=== PATIENT | female | born 1955 | race Caucasian/White ===

== ENCOUNTER 2022-11-03 18:26 | Inpatient (IN) | payer OTHER, SELFPAY ==
--- NOTE | 2022-11-03 | ECG_ITS ---
Test Reason : PALPITATIONS Blood Pressure : / mmHG Vent. Rate : 095 BPM Atrial Rate : 095 BPM P-R Int : 204 ms QRS Dur : 076 ms QT Int : 352 ms P-R-T Axes : 048 -27 -11 degrees QTc Int : 442 ms Artifact in tracing Normal sinus rhythm Inferior infarct , age undetermined Abnormal ECG When compared with ECG of 16-APR-2011 06:01, Inferior infarct is now Present T wave inversion now evident in Inferior leads T wave inversion now evident in Lateral leads Referred By: Blanca Villatoro Electronically Signed By:CLAYTON ROMERO
[2022-11-03 18:56] LABS: Glucose, Whole Blood 284 mg/dL (60-115)
[2022-11-03] MEDS: Insulin Glargine,Hum.rec.anlog 100 UNIT/ML 10 ML VIAL 30 UNIT SUBCUT (20:41)
[2022-11-03] MEDS: Insulin Lispro 100 UNIT/ML 3 ML VIAL SUBCUT (20:42)
[2022-11-03] MEDS: Thiamine HCL 100 MG TABLET PO (20:43)
--- NOTE | 2022-11-03 21:14 | PC.NURSE ---
PT in need of routine EKG, spring up supervisor Mary notified at 0735pm.
--- NOTE | 2022-11-03 21:17 | PC.NURSE ---
PT is refusing to cooperate in admission process at this time, PT came onto unit had VS done and POC done, took HS meds then went to sleep. POC 284, T 98.0, P 100, R 18, O2 95%/RA, BP 106/58.
--- NOTE | 2022-11-04 00:23 | PC.ADMIT ---
PT arrived to unit at 1640 on CV, on stretcher with claim trainee from [facility] ED. PT is 67 year old female with medical hx of HTN, DM1, MDD, ETOH, former smoker. PT was placed on sec 12 by [employer] and brought to [facility] due to PT expression SI and HI toward , PT had consumed several glasses of wine and over the past several weeks says she has been contemplating on injecting her and self with insulin to end their lives due to fact that PT is concerned is developing 'Alzheimer's. PT has not received a formal diagnosis of this. PT has had no hospitalizations for mental health. PT curretly on CIWA due to ETOH abuse. Currently scoring 0-2. VSS, med compliant. PT went to bed and refused to sign consents. PT currently resting in bed with eyes closed on 15 minute checks.
[2022-11-04 07:15] LABS: Glucose, Whole Blood 155 mg/dL (60-115)
[2022-11-04] MEDS: Insulin Lispro 100 UNIT/ML 3 ML VIAL SUBCUT ×4 (07:45→22:14)
[2022-11-04 07:54] LABS: Glucose, Whole Blood 263 mg/dL (60-115)
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
[2022-11-04 08:17] LABS: Estimated Average Glucose 192 mg/dL; Hemoglobin A1c % 8.3 %
[2022-11-04 08:32] LABS: Alanine Aminotransferase 21 U/L (0-31); Albumin Level 3.9 g/dL (3.5-5.0); Alkaline Phosphatase 98 U/L (39-117); Anion Gap 14 (12-20); Aspartate Amino Transferase 16 U/L (5-31); Bilirubin Total 0.7 mg/dL (0.0-1.0); Blood Urea Nitrogen 31 mg/dL (9-16); Calcium 9.7 mg/dL (8.4-10.2); Carbon Dioxide 24 mmol/L (22-29); Chloride 104 mmol/L (96-108); Cholesterol 145 mg/dL; Estimated Glomerular Filt Rate 50; Glucose Fasting 284 mg/dL (60-99); HDL Cholesterol 57 mg/dL; LDL Cholesterol Calculated 63 mg/dl; Magnesium 1.9 mg/dL (1.6-2.6); Potassium 4.6 mmol/L (3.3-5.1); Sodium 137 mmol/L (135-145); Total Protein 6.4 g/dL (6.5-8.0); Triglycerides 127 mg/dL
[2022-11-04 09:00] VITALS: BP 106/70; PULSE 108; RESP 20; TEMP 36.6; O2SAT 96
[2022-11-04] MEDS: Thiamine HCL 100 MG TABLET PO (09:02)
[2022-11-04 09:03] LABS: Folate 10.7 ng/mL (> or = 4.0); Free T4 (Free Thyroxine) 1.02 ng/dL (0.71-1.85); Thyroid Stimulating Hormone 0.59 uIU/mL (0.32-4.0); Vitamin B12 < 148 pg/mL (200-900)
[2022-11-04] MEDS: Acetaminophen 325 MG TABLET 650 MG PO (12:09)
[2022-11-04 12:18] VITALS: BMI 25.7
[2022-11-04 12:37] LABS: Glucose, Whole Blood 240 mg/dL (60-115)
[2022-11-04] MEDS: hydrOXYzine HCL 25 MG TABLET PO (13:04)
--- NOTE | 2022-11-04 13:23 | PHA.MEDREC ---
Pharmacy Consult ? Medication Reconciliation Pharmacy has completed the medication reconciliation. Completed med rec per md request.
[2022-11-04 15:00] LABS: Glucose, Whole Blood 275 mg/dL (60-115)
--- NOTE | 2022-11-04 16:20 | P.CONHOSP_ITS ---
History of Present Illness Data of Consult Service Date: 11/04/22 Requesting physician: Omi Mills Primary Care Provider: Vasu Edouard III, MD HPI Reason for consult: medical H&P 67-year-old female with history of type 1 diabetes, alcohol use disorder, depression, hypothyroidism, hypertension, hyperlipidemia admitted to Psychiatry with consult placed to Medicine for medical H and P. patient reports that she has been on the unit, glucose levels have been higher than normal. She is receiving 30 units of Lantus which she takes at home and is on Humalog sliding scale. She states that she has been trying to cut back on alcohol consumption to help better manage her diabetes but drink in excess 2 days ago, unable to quantify amount. She denies any withdrawal symptoms at this time. She denies any illicit drug use and does not smoke cigarettes currently. Review of Systems Review of Systems: General: No fevers, malaise, unintentional weight loss HEENT: No sore throat, nasal congestion, rhinorrhea, sinus pain, ear pain Cardiovascular: No chest pain, palpitations, or leg edema Respiratory: No shortness of breath, wheezing, cough GI: No abdominal pain, nausea, vomiting, diarrhea, constipation, melena, hematochezia : No dysuria, hematuria, increased urinary frequency, decreased urinary output MSK: No myalgia. +back pain Neuro: No headaches, weakness, paresthesias, tremors Skin: No rashes or lesions [facility] Medical History (Updated 11/04/22 @ 16:29 by MCKENNA Devries) Alcohol use disorder Breast cancer Depressive disorder Hyperlipidemia Hypertension Hypothyroidism Uncontrolled type 1 diabetes mellitus with hyperglycemia Social History Household Members: Spouse Housing: Apartment Do you presently have visiting nurse or other home services: No Patient Tobacco Use Status: Former Tobacco user Tobacco use type: Cigarette Cigarette Packs Per Day: 0.5 Cigarettes Per Day: 10.0 Smoked in Last 30 Days: No e-Cigarette/Vaping Use: Never Used Patient Interested in Nicotine Replacement: No Patient Given Instructions on How to Stop Smoking: No (PT hasn't smoked in 30 days) Second Hand Smoke Exposure: No Use of substances other than those prescribed or required for medical reasons: No Substance Use Type: Unknown Substance Use Frequency: Chronic Longstanding Last Used Substance: Just Prior to Admission Currently Displaying Signs/Symptoms of Drug Intoxication Withdrawal: No Any prior treatment program specific to substance use: No Have you been hit, kicked, punched, or otherwise hurt by someone within the past year? If so, by whom?: No Do you feel safe in your current relationship?: Yes Is there a partner from a previous relationship who is making you feel unsafe now?: No Are you made to feel afraid or neglected: No Spiritual Healthcare Practices: none Yarsanism Healthcare Practices: none Cultural Healthcare Practices: none Advance Directives: No Advance Directives Information Provided: No Do you have thoughts of harming others: None Do you have a plan to hurt others: No Plan Recently lost weight without trying: Unsure Eating poorly because of decreased appetite: Yes Nutrition Risks: Poor intake 0-25% >4 days Patient : No : No Poor oral hygiene: No Meds Allergies Allergy/AdvReac Type Severity Reaction Status Date / Time Penicillins Allergy Unknown RASH Unverified 05/31/20 14:51 Active Medications: Current Medications Acetaminophen (Acetaminophen 325 Mg Tablet) 650 mg PO Q6H PRN PRN Reason: Headache/Pain Mild Scale (1-3) Last Admin: 11/04/22 12:09 Dose: 650 mg Al Hydroxide/Mg Hydroxide (Magnesium Hydrox/Alum Hydrox 30 Ml Oral.Susp) 30 ml PO Q6H PRN PRN Reason: Heartburn/Nausea Hydroxyzine HCl (Hydroxyzine Hcl 25 Mg Tablet) 25 mg PO Q6H PRN PRN Reason: Anxiety Last Admin: 11/04/22 13:04 Dose: 25 mg Insulin Glargine (Insulin Glargine,Hum.Rec.Anlog 100 Unit/Ml 10 Ml Vial) 30 unit SUBCUT BEDTIME NILDA Last Admin: 11/03/22 20:41 Dose: 30 unit Insulin Human Lispro (Insulin Lispro 100 Unit/Ml 3 Ml Vial) 0 unit SUBCUT QI [facility]; Protocol Last Admin: 11/04/22 12:37 Dose: 4 unit Lorazepam (Lorazepam 1 Mg Tablet) 1 mg PO Q4H PRN PRN Reason: ciwa 7-11 Lorazepam (Lorazepam 1 Mg Tablet) 2 mg PO Q4H PRN PRN Reason: ciwa 12-17 Magnesium Hydroxide (Milk Of Magnesia 30 Ml Oral.Susp) 30 ml PO DAILY PRN PRN Reason: Constipation Mirtazapine (Mirtazapine 7.5 Mg Tablet) 7.5 mg PO BEDTIME NILDA Thiamine HCl (Thiamine Hcl 100 Mg Tablet) 100 mg PO DAILY NILDA Last Admin: 11/04/22 09:02 Dose: 100 mg Trazodone HCl (Trazodone Hcl 50 Mg Tablet) 50 mg PO BEDTIME MRX1 PRN PRN Reason: Insomnia Home Medications Medication Instructions Recorded Confirmed Last Taken Type atenolol 25 mg tablet 12.5 mg PO DAILY 11/04/22 11/04/22 11/02/22 History atorvastatin 20 mg tablet (Lipitor) 20 mg PO BEDTIME 11/04/22 11/04/22 11/03/22 History cholecalciferol (vitamin D3) 25 25 mcg PO DAILY 11/04/22 11/04/22 11/02/22 History mcg (1,000 unit) tablet letrozole 2.5 mg tablet 2.5 mg PO DAILY 11/04/22 11/04/22 11/02/22 History levothyroxine 125 mcg tablet 125 mcg PO DAILY 11/04/22 11/04/22 11/02/22 History losartan 25 mg tablet 25 mg PO DAILY 11/04/22 11/04/22 11/02/22 History Physical Exam Vital Signs and Narrative: Vital Signs: Last Vital Signs Temp 97.9 F 11/04/22 09:00 Pulse 108 H 11/04/22 09:00 Resp 20 11/04/22 09:00 BP 106/70 11/04/22 09:00 Pulse Ox 96 11/04/22 09:00 O2 Del Method 11/04/22 09:00 BMI result Body Mass Index 25.7 Constitutional - Awake and Alert, No apparent distress Eyes - PERRLA, EOMI Cardiovascular - S1S2, RRR, No edema Respiratory - Normal lung expansion, Normal respiratory effort, No respiratory distress, CTA bilaterally Gastrointestinal - NT / ND; +BS; No rebound or guarding Extremities - no calf tenderness bilaterally, no swelling Musculoskeletal - Normal inspection, normal ROM Skin - Warm/Dry Neurological - Alert & oriented x3, CN II-XII in tact, 5/5 strength BUE and BLE Psychological - Appropriate affect Results Labs 11/04/22 07:58 Labs: Laboratory Results - last 24 hr 11/03/22 11/04/22 11/04/22 18:49 03:07 07:49 Anion Gap Estim Creat Clear Calc Estimated GFR POC Glucose 284 H 155 H 263 H Fasting Glucose Estimat Average Glucose Hemoglobin A1c % Calcium Magnesium Total Bilirubin AST ALT Alkaline Phosphatase Total Protein Albumin Triglycerides Cholesterol LDL Cholesterol, Calc HDL Cholesterol Vitamin B12 Folate TSH Free T4 11/04/22 11/04/22 11/04/22 07:58 07:58 12:32 Anion Gap 14 Estim Creat Clear Calc TNP Estimated GFR 50 POC Glucose 240 H Fasting Glucose 284 H Estimat Average Glucose 192 Hemoglobin A1c % 8.3 Calcium 9.7 Magnesium 1.9 Total Bilirubin 0.7 AST 16 ALT 21 Alkaline Phosphatase 98 Total Protein 6.4 L Albumin 3.9 Triglycerides 127 Cholesterol 145 LDL Cholesterol, Calc 63 HDL Cholesterol 57 Vitamin B12 < 148 L Folate 10.7 TSH 0.59 Free T4 1.02 11/04/22 14:49 Anion Gap Estim Creat Clear Calc Estimated GFR POC Glucose 275 H Fasting Glucose Estimat Average Glucose Hemoglobin A1c % Calcium Magnesium Total Bilirubin AST ALT Alkaline Phosphatase Total Protein Albumin Triglycerides Cholesterol LDL Cholesterol, Calc HDL Cholesterol Vitamin B12 Folate TSH Free T4 Assessment and Plan (1) Routine medical exam: Status: Acute Plan 67-year-old female with history of type 1 diabetes, alcohol use disorder, depression, hypothyroidism, hypertension, hyperlipidemia admitted to Psychiatry with consult placed to Medicine for medical H and P. #Depressive disorder -plan per psychiatry #Alcohol use disorder -no evidence withdrawal at this time -Continue thiamine, add folic acid -plan per Psychiatry # uncontrolled type 1 diabetes with hyperglycemia -reports last A1c was 8.3%, goal <7.0% -continue Lantus 30 units at bedtime -glucose levels uncontrolled. Humalog sliding scale increased by 2 units -continue POC -diabetic diet -Hypoglycemia protocol #HTN- reasonably controlled -continue home meds #HLD -Continue statin #Hypothyroidism -pt euthyroid -continue levothyroxine #H/o breast cancer -continue letrozole #Vitamin B12 deficiency -Initiate PO vitamin b12 Thank you for allowing me to participate in this consult. Signing off at this time. Please do not hesitate to call for further questions. Time Spent With Patient Time: Total time managing care of this patient today ____ minutes.
[2022-11-04 16:58] LABS: Glucose, Whole Blood 231 mg/dL (60-115)
[2022-11-04 18:00] VITALS: BP 119/60; PULSE 97; RESP 16; TEMP 36; O2SAT 98
[2022-11-04 21:22] LABS: Glucose, Whole Blood 222 mg/dL (60-115)
[2022-11-04] MEDS: Mirtazapine 7.5 MG TABLET PO (22:13)
[2022-11-04] MEDS: Insulin Glargine,Hum.rec.anlog 100 UNIT/ML 10 ML VIAL 30 UNIT SUBCUT (22:14)
[2022-11-05 06:00] VITALS: BP 132/74; PULSE 96; RESP 16; TEMP 37.1; O2SAT 97
[2022-11-05 07:21] LABS: Glucose, Whole Blood 161 mg/dL (60-115)
[2022-11-05] MEDS: Cyanocobalamin (Vitamin B-12) 1,000 MCG TABLET 1000 MCG PO (07:33)
[2022-11-05] MEDS: Thiamine HCL 100 MG TABLET PO (07:34)
[2022-11-05] MEDS: Insulin Lispro 100 UNIT/ML 3 ML VIAL SUBCUT ×4 (07:45→20:02)
[2022-11-05] MEDS: Folic Acid 1 MG TABLET PO (07:49)
[2022-11-05 11:29] LABS: Glucose, Whole Blood 210 mg/dL (60-115)
--- NOTE | 2022-11-05 12:22 | P.PNPSI_ITS ---
Subjective Subjective Date of Service: 11/05/22 Reason For Visit: Major Depressive Disorder, severe, recurrent Subjective Notes: Conditional Voluntary Interim History: The nursing staff reported the patient had poor sleep last night. She did not have any affect with the Remeron that we started yesterday at 7.5. The staff has noticed the patient minimized her substance abuse problem. The social services manager reported that she is on a pre-contemplative state and we will try to arrange a family meeting pretty soon. On interview the patient denies new symptoms, she minimized her alcohol is use disorder and her suicidality. We will increase Remeron up to 15 tonight. Mental Status Exam Mental Status Exam Patient Appearance: Well Grooomed and Appropriate Patient Orientation: Person and Situation Level of Consciousness: Awake and Appropriate Patient Behavior: Guarded and Passive Mood Description: Withdrawn and Constricted Affect Description: Calm Patient Cognition Impaired: No Ability to Follow Directions: Good Speech Pattern: Clear Hallucinations: None Delusions: Not Present Thought Process: Distracted and Evasive Thought Content: positive for [place] and positive for Circumstantial Judgement: Fair Diagnostics Vital Signs (24Hr): Vital Signs - 24 hr 11/04/22 18:00 11/05/22 06:00 Temperature 96.8 F 98.8 F Pulse Rate 97 96 Respiratory Rate 16 16 Blood Pressure 119/60 132/74 Pulse Oximetry 98 97 Oxygen Delivery Method Room Air Room Air BMI result Body Mass Index 25.7 Labs 11/04/22 07:58 Labs: Laboratory Results - last 48 hr 11/03/22 11/04/22 11/04/22 18:49 03:07 07:49 Sodium Potassium Chloride Carbon Dioxide Anion Gap BUN Creatinine Estim Creat Clear Calc Estimated GFR POC Glucose 284 H 155 H 263 H Fasting Glucose Estimat Average Glucose Hemoglobin A1c % Calcium Magnesium Total Bilirubin AST ALT Alkaline Phosphatase Total Protein Albumin Triglycerides Cholesterol LDL Cholesterol, Calc HDL Cholesterol Vitamin B12 Folate TSH Free T4 11/04/22 11/04/22 11/04/22 07:58 07:58 12:32 Sodium 137 Potassium 4.6 Chloride 104 Carbon Dioxide 24 Anion Gap 14 BUN 31 H Creatinine 1.10 Estim Creat Clear Calc TNP Estimated GFR 50 POC Glucose 240 H Fasting Glucose 284 H Estimat Average Glucose 192 Hemoglobin A1c % 8.3 Calcium 9.7 Magnesium 1.9 Total Bilirubin 0.7 AST 16 ALT 21 Alkaline Phosphatase 98 Total Protein 6.4 L Albumin 3.9 Triglycerides 127 Cholesterol 145 LDL Cholesterol, Calc 63 HDL Cholesterol 57 Vitamin B12 < 148 L Folate 10.7 TSH 0.59 Free T4 1.02 11/04/22 11/04/22 11/04/22 14:49 16:54 21:19 Sodium Potassium Chloride Carbon Dioxide Anion Gap BUN Creatinine Estim Creat Clear Calc Estimated GFR POC Glucose 275 H 231 H 222 H Fasting Glucose Estimat Average Glucose Hemoglobin A1c % Calcium Magnesium Total Bilirubin AST ALT Alkaline Phosphatase Total Protein Albumin Triglycerides Cholesterol LDL Cholesterol, Calc HDL Cholesterol Vitamin B12 Folate TSH Free T4 11/05/22 11/05/22 07:17 11:24 Sodium Potassium Chloride Carbon Dioxide Anion Gap BUN Creatinine Estim Creat Clear Calc Estimated GFR POC Glucose 161 H 210 H Fasting Glucose Estimat Average Glucose Hemoglobin A1c % Calcium Magnesium Total Bilirubin AST ALT Alkaline Phosphatase Total Protein Albumin Triglycerides Cholesterol LDL Cholesterol, Calc HDL Cholesterol Vitamin B12 Folate TSH Free T4 Medications Medications Current Medications Acetaminophen (Acetaminophen 325 Mg Tablet) 650 mg PO Q6H PRN PRN Reason: Headache/Pain Mild Scale (1-3) Last Admin: 11/04/22 12:09 Dose: 650 mg Al Hydroxide/Mg Hydroxide (Magnesium Hydrox/Alum Hydrox 30 Ml Oral.Susp) 30 ml PO Q6H PRN PRN Reason: Heartburn/Nausea Cyanocobalamin (Cyanocobalamin (Vitamin B-12) 1,000 Mcg Tablet) 1,000 mcg PO DAILY [facility] Last Admin: 11/05/22 07:33 Dose: 1,000 mcg Dextrose (Dextrose 50 % 25 Gm/50 Ml Syringe) 25 gm IVPUSH Q15M PRN; Protocol PRN Reason: per Hypoglycemia Standing Ord. Folic Acid (Folic Acid 1 Mg Tablet) 1 mg PO DAILY [facility] Last Admin: 11/05/22 07:49 Dose: 1 mg Glucose (Glucose Gel 15 Gm Gel..Gram.) 15 gm PO Q15M PRN; Protocol PRN Reason: per Hypoglycemia Standing Ord. Hydroxyzine HCl (Hydroxyzine Hcl 25 Mg Tablet) 25 mg PO Q6H PRN PRN Reason: Anxiety Last Admin: 11/04/22 13:04 Dose: 25 mg Insulin Glargine (Insulin Glargine,Hum.Rec.Anlog 100 Unit/Ml 10 Ml Vial) 30 unit SUBCUT BEDTIME [facility] Last Admin: 11/04/22 22:14 Dose: 30 unit Insulin Human Lispro (Insulin Lispro 100 Unit/Ml 3 Ml Vial) 0 unit SUBCUT QIDACHS [facility]; Protocol Last Admin: 11/05/22 11:34 Dose: 6 unit Lorazepam (Lorazepam 1 Mg Tablet) 1 mg PO Q4H PRN PRN Reason: ciwa 7-11 Lorazepam (Lorazepam 1 Mg Tablet) 2 mg PO Q4H PRN PRN Reason: ciwa 12-17 Magnesium Hydroxide (Milk Of Magnesia 30 Ml Oral.Susp) 30 ml PO DAILY PRN PRN Reason: Constipation Mirtazapine (Mirtazapine 15 Mg Tablet) 15 mg PO BEDTIME NILDA Thiamine HCl (Thiamine Hcl 100 Mg Tablet) 100 mg PO DAILY NILDA Last Admin: 11/05/22 07:34 Dose: 100 mg Trazodone HCl (Trazodone Hcl 50 Mg Tablet) 50 mg PO BEDTIME MRX1 PRN PRN Reason: Insomnia Allergies Allergies Allergy/AdvReac Type Severity Reaction Status Date / Time Penicillins Allergy Unknown RASH Unverified 05/31/20 14:51 Assessment & Plan Assessment & Plan (1) Routine medical exam: Status: Acute Code(s): Z00.00 - Encounter for general adult medical examination without abnormal findin gs Plan 67-year-old female with history of type 1 diabetes, alcohol use disorder, depression, hypothyroidism, hypertension, hyperlipidemia admitted to Psychiatry with consult placed to Medicine for medical H and P. #Depressive disorder -plan per psychiatry #Alcohol use disorder -no evidence withdrawal at this time -Continue thiamine, add folic acid -plan per Psychiatry # uncontrolled type 1 diabetes with hyperglycemia -reports last A1c was 8.3%, goal <7.0% -continue Lantus 30 units at bedtime -glucose levels uncontrolled. Humalog sliding scale increased by 2 units -continue POC -diabetic diet -Hypoglycemia protocol #HTN- reasonably controlled -continue home meds #HLD -Continue statin #Hypothyroidism -pt euthyroid -continue levothyroxine #H/o breast cancer -continue letrozole #Vitamin B12 deficiency -Initiate PO vitamin b12 Thank you for allowing me to participate in this consult. Signing off at this time. Please do not hesitate to call for further questions. Psychiatry 1. Gather collateral information will try to contact her daughter and arrange a family meeting. 2. Increase Remeron up to 15 mg p.o. q.h.s.. 3. Offered naltrexone for alcohol use disorder. Reason for contiued inpatient stay Substantial Risk for: inability to function, rapid decompensation and med/psych decompensation Time Spent With Patient Time: Total time managing care of this patient today __20__ minutes.
[2022-11-05 16:30] LABS: Glucose, Whole Blood 224 mg/dL (60-115)
[2022-11-05 18:00] VITALS: BP 143/73; PULSE 100; RESP 18; TEMP 36.4; O2SAT 96
[2022-11-05 20:02] LABS: Glucose, Whole Blood 226 mg/dL (60-115)
[2022-11-05] MEDS: Atorvastatin Calcium 20 MG TABLET PO (20:03)
[2022-11-05] MEDS: Mirtazapine 15 MG TABLET PO (20:03)
[2022-11-05] MEDS: Insulin Glargine,Hum.rec.anlog 100 UNIT/ML 10 ML VIAL 30 UNIT SUBCUT (20:03)
--- NOTE | 2022-11-05 23:45 | PC.NURSE ---
Patient came out of room at approximately 23:40 she felt like her blood sugar was low. I grabbed the glucometer and proceeded to take blood sugar which was 56. Gave patient gingerale, apple juice, and caleb crackers. Made MD aware, no new orders.
[2022-11-06 00:02] LABS: Glucose, Whole Blood 56 mg/dL (60-115)
[2022-11-06 00:40] LABS: Glucose, Whole Blood 174 mg/dL (60-115)
--- NOTE | 2022-11-06 00:42 | PC.NURSE ---
recheck of POC was 174. Patient asymptomatic no complaints.
[2022-11-06 06:00] VITALS: BP 119/67; PULSE 110; RESP 14; TEMP 36.2; O2SAT 96
[2022-11-06] MEDS: Levothyroxine Sodium 125 MCG TABLET PO (06:47)
--- NOTE | 2022-11-06 08:12 | P.PNPSI_ITS ---
Subjective Subjective Date of Service: 11/06/22 Reason For Visit: Major Depressive Disorder, severe, recurrent Subjective Notes: Conditional Voluntary Interim History: The nursing staff reported the patient took her medications last night, she denies active suicidal ideation and she is able to contract for safety. On interview she reported that she slpet very well the increase Remeron up to 15 mg p.o. q.h.s.. We discussed at [facility] alcohol abuse and she agreed to try Naltrexone. The community mental health social worker reported that we will have a family meeting tomorrow morning. Mental Status Exam Mental Status Exam Patient Appearance: Appropriate Patient Orientation: Person, Place and Situation Level of Consciousness: Awake and Appropriate Patient Behavior: Guarded and Passive Mood Description: Withdrawn Affect Description: Constricted Patient Cognition Impaired: Yes Ability to Follow Directions: Good Speech Pattern: Clear Hallucinations: None Delusions: Not Present Thought Process: Linear Thought Content: positive for [place] Judgement: Fair Diagnostics Vital Signs (24Hr): Vital Signs - 24 hr 11/05/22 18:00 Temperature 97.5 F Pulse Rate 100 Respiratory Rate 18 Blood Pressure 143/73 H Pulse Oximetry 96 Oxygen Delivery Method Room Air BMI result Body Mass Index 25.7 Labs 11/04/22 07:58 Labs: Laboratory Results - last 48 hr 11/04/22 11/04/22 11/04/22 07:58 07:58 12:32 Sodium 137 Potassium 4.6 Chloride 104 Carbon Dioxide 24 Anion Gap 14 BUN 31 H Creatinine 1.10 Estim Creat Clear Calc TNP Estimated GFR 50 POC Glucose 240 H Fasting Glucose 284 H Estimat Average Glucose 192 Hemoglobin A1c % 8.3 Calcium 9.7 Magnesium 1.9 Total Bilirubin 0.7 AST 16 ALT 21 Alkaline Phosphatase 98 Total Protein 6.4 L Albumin 3.9 Triglycerides 127 Cholesterol 145 LDL Cholesterol, Calc 63 HDL Cholesterol 57 Vitamin B12 < 148 L Folate 10.7 TSH 0.59 Free T4 1.02 11/04/22 11/04/22 11/04/22 14:49 16:54 21:19 Sodium Potassium Chloride Carbon Dioxide Anion Gap BUN Creatinine Estim Creat Clear Calc Estimated GFR POC Glucose 275 H 231 H 222 H Fasting Glucose Estimat Average Glucose Hemoglobin A1c % Calcium Magnesium Total Bilirubin AST ALT Alkaline Phosphatase Total Protein Albumin Triglycerides Cholesterol LDL Cholesterol, Calc HDL Cholesterol Vitamin B12 Folate TSH Free T4 11/05/22 11/05/22 11/05/22 07:17 11:24 16:24 Sodium Potassium Chloride Carbon Dioxide Anion Gap BUN Creatinine Estim Creat Clear Calc Estimated GFR POC Glucose 161 H 210 H 224 H Fasting Glucose Estimat Average Glucose Hemoglobin A1c % Calcium Magnesium Total Bilirubin AST ALT Alkaline Phosphatase Total Protein Albumin Triglycerides Cholesterol LDL Cholesterol, Calc HDL Cholesterol Vitamin B12 Folate TSH Free T4 11/05/22 11/05/22 11/06/22 19:57 23:40 00:36 Sodium Potassium Chloride Carbon Dioxide Anion Gap BUN Creatinine Estim Creat Clear Calc Estimated GFR POC Glucose 226 H 56 L* 174 H Fasting Glucose Estimat Average Glucose Hemoglobin A1c % Calcium Magnesium Total Bilirubin AST ALT Alkaline Phosphatase Total Protein Albumin Triglycerides Cholesterol LDL Cholesterol, Calc HDL Cholesterol Vitamin B12 Folate TSH Free T4 Medications Medications Current Medications Acetaminophen (Acetaminophen 325 Mg Tablet) 650 mg PO Q6H PRN PRN Reason: Headache/Pain Mild Scale (1-3) Last Admin: 11/04/22 12:09 Dose: 650 mg Al Hydroxide/Mg Hydroxide (Magnesium Hydrox/Alum Hydrox 30 Ml Oral.Susp) 30 ml PO Q6H PRN PRN Reason: Heartburn/Nausea Atenolol (Atenolol 25 Mg Tablet) 12.5 mg PO DAILY [facility]; Protocol Atorvastatin Calcium (Atorvastatin Calcium 20 Mg Tablet) 20 mg PO BEDTIME [facility] Last Admin: 11/05/22 20:03 Dose: 20 mg Cyanocobalamin (Cyanocobalamin (Vitamin B-12) 1,000 Mcg Tablet) 1,000 mcg PO DAILY [facility] Last Admin: 11/05/22 07:33 Dose: 1,000 mcg Dextrose (Dextrose 50 % 25 Gm/50 Ml Syringe) 25 gm IVPUSH Q15M PRN; Protocol PRN Reason: per Hypoglycemia Standing Ord. Folic Acid (Folic Acid 1 Mg Tablet) 1 mg PO DAILY [facility] Last Admin: 11/05/22 07:49 Dose: 1 mg Glucose (Glucose Gel 15 Gm Gel..Gram.) 15 gm PO Q15M PRN; Protocol PRN Reason: per Hypoglycemia Standing Ord. Hydroxyzine HCl (Hydroxyzine Hcl 25 Mg Tablet) 25 mg PO Q6H PRN PRN Reason: Anxiety Last Admin: 11/04/22 13:04 Dose: 25 mg Insulin Glargine (Insulin Glargine,Hum.Rec.Anlog 100 Unit/Ml 10 Ml Vial) 30 unit SUBCUT BEDTIME [facility] Last Admin: 11/05/22 20:03 Dose: 30 unit Insulin Human Lispro (Insulin Lispro 100 Unit/Ml 3 Ml Vial) 0 unit SUBCUT QIDACHS [facility]; Protocol Last Admin: 11/05/22 20:02 Dose: 6 unit Letrozole (Letrozole 2.5 Mg Tablet) 2.5 mg PO DAILY [facility] Levothyroxine Sodium (Levothyroxine Sodium 125 Mcg Tablet) 125 mcg PO DAILY @0600 [facility] Last Admin: 11/06/22 06:47 Dose: 125 mcg Lorazepam (Lorazepam 1 Mg Tablet) 1 mg PO Q4H PRN PRN Reason: ciwa 7-11 Lorazepam (Lorazepam 1 Mg Tablet) 2 mg PO Q4H PRN PRN Reason: ciwa 12-17 Losartan Potassium (Losartan Potassium 25 Mg Tablet) 25 mg PO DAILY [facility]; Protocol Magnesium Hydroxide (Milk Of Magnesia 30 Ml Oral.Susp) 30 ml PO DAILY PRN PRN Reason: Constipation Mirtazapine (Mirtazapine 15 Mg Tablet) 15 mg PO BEDTIME [facility] Last Admin: 11/05/22 20:03 Dose: 15 mg Thiamine HCl (Thiamine Hcl 100 Mg Tablet) 100 mg PO DAILY [facility] Last Admin: 11/05/22 07:34 Dose: 100 mg Trazodone HCl (Trazodone Hcl 50 Mg Tablet) 50 mg PO BEDTIME MRX1 PRN PRN Reason: Insomnia Vitamin D (Cholecalciferol (Vitamin D3) 25 Mcg Tablet) 25 mcg PO DAILY [facility] Allergies Allergies Allergy/AdvReac Type Severity Reaction Status Date / Time Penicillins Allergy Unknown RASH Unverified 05/31/20 14:51 Assessment & Plan Assessment & Plan (1) Routine medical exam: Status: Acute Code(s): Z00.00 - Encounter for general adult medical examination without abnormal findings Plan 67-year-old female with history of type 1 diabetes, alcohol use disorder, d epression, hypothyroidism, hypertension, hyperlipidemia admitted to Psychiatry with consult placed to Medicine for medical H and P. #Depressive disorder -plan per psychiatry #Alcohol use disorder -no evidence withdrawal at this time -Continue thiamine, add folic acid -plan per Psychiatry # uncontrolled type 1 diabetes with hyperglycemia -reports last A1c was 8.3%, goal <7.0% -continue Lantus 30 units at bedtime -glucose levels uncontrolled. Humalog sliding scale increased by 2 units -continue POC -diabetic diet -Hypoglycemia protocol #HTN- reasonably controlled -continue home meds #HLD -Continue statin #Hypothyroidism -pt euthyroid -continue levothyroxine #H/o breast cancer -continue letrozole #Vitamin B12 deficiency -Initiate PO vitamin b12 Thank you for allowing me to participate in this consult. Signing off at this time. Please do not hesitate to call for further questions. Psychiatry 1. Gather collateral information will try to contact her daughter and arrange a family meeting. 2. Increase Remeron up to 15 mg p.o. q.h.s.. 3. Offered naltrexone for alcohol use disorder. She is more open for her treatment. Reason for contiued inpatient stay Substantial Risk for: inability to function, rapid decompensation and med/psych decompensation Time Spent With Patient Time: Total time managing care of this patient today __20__ minutes.
[2022-11-06] MEDS: Losartan Potassium 25 MG TABLET PO (09:33)
[2022-11-06] MEDS: Thiamine HCL 100 MG TABLET PO (09:33)
[2022-11-06] MEDS: atenoloL 25 MG TABLET 12.5 MG PO (09:33)
[2022-11-06] MEDS: Cyanocobalamin (Vitamin B-12) 1,000 MCG TABLET 1000 MCG PO (09:33)
[2022-11-06] MEDS: Cholecalciferol (Vitamin D3) 25 MCG TABLET PO (09:33)
[2022-11-06] MEDS: Folic Acid 1 MG TABLET PO (09:34)
[2022-11-06 10:05] LABS: Glucose, Whole Blood 289 mg/dL (60-115)
[2022-11-06] MEDS: Insulin Lispro 100 UNIT/ML 3 ML VIAL SUBCUT ×2 (10:05→21:59)
[2022-11-06] MEDS: Letrozole 2.5 MG TABLET PO (10:07)
[2022-11-06 11:42] LABS: Glucose, Whole Blood 213 mg/dL (60-115)
[2022-11-06] MEDS: Naltrexone HCl 50 MG TABLET PO (11:51)
[2022-11-06 16:35] LABS: Glucose, Whole Blood 129 mg/dL (60-115)
[2022-11-06 18:00] VITALS: BP 156/74; PULSE 82; RESP 17; TEMP 36.2; O2SAT 97
[2022-11-06 21:51] LABS: Glucose, Whole Blood 371 mg/dL (60-115)
[2022-11-06] MEDS: Insulin Glargine,Hum.rec.anlog 100 UNIT/ML 10 ML VIAL 30 UNIT SUBCUT (22:00)
[2022-11-06] MEDS: Atorvastatin Calcium 20 MG TABLET PO (22:02)
[2022-11-06] MEDS: Mirtazapine 15 MG TABLET PO (22:02)
[2022-11-07] MEDS: Levothyroxine Sodium 125 MCG TABLET PO (06:14)
[2022-11-07 08:09] LABS: Glucose, Whole Blood 111 mg/dL (60-115)
[2022-11-07] MEDS: Losartan Potassium 25 MG TABLET PO (09:22)
[2022-11-07] MEDS: atenoloL 25 MG TABLET 12.5 MG PO (09:22)
[2022-11-07] MEDS: Folic Acid 1 MG TABLET PO (09:22)
[2022-11-07] MEDS: Naltrexone HCl 50 MG TABLET PO (09:22)
[2022-11-07] MEDS: Thiamine HCL 100 MG TABLET PO (09:22)
[2022-11-07] MEDS: Cyanocobalamin (Vitamin B-12) 1,000 MCG TABLET 1000 MCG PO (09:24)
[2022-11-07] MEDS: Cholecalciferol (Vitamin D3) 25 MCG TABLET PO (09:24)
[2022-11-07] MEDS: Letrozole 2.5 MG TABLET PO (09:24)
[2022-11-07 09:30] VITALS: BP 147/78; PULSE 95; RESP 18; TEMP 36.1; O2SAT 96
[2022-11-07 11:36] LABS: Glucose, Whole Blood 229 mg/dL (60-115)
[2022-11-07] MEDS: Insulin Lispro 100 UNIT/ML 3 ML VIAL SUBCUT ×2 (11:40→20:11)
[2022-11-07] MEDS: Acetaminophen 325 MG TABLET 650 MG PO (13:29)
--- NOTE | 2022-11-07 13:37 | HO.PSYCHPN ---
Subjective Subjective Date of Service: 11/07/22 Reason For Visit: Major Depressive Disorder, severe, recurrent Subjective Notes: Conditional Voluntary Interim History: The nursing staff reported the patient has been quiet and friendly very cooperative with peers and staff. Today she canceled her family meeting since she does not want her daughter to be involved. On interview the patient denies active suicidal or homicidal thoughts she had been thinking a lot about her alcohol use disorder, so far no side effects with naltrexone. Mental Status Exam Mental Status Exam Patient Appearance: Well Grooomed and Appropriate Patient Orientation: Person, Place, Time and Situation Level of Consciousness: Awake and Appropriate Patient Behavior: Guarded and Passive Mood Description: Withdrawn Affect Description: Constricted Patient Cognition Impaired: Yes Ability to Follow Directions: Good Speech Pattern: Clear Hallucinations: None Delusions: Not Present Thought Process: Linear Thought Content: positive for [place] Judgement: Fair Diagnostics Vital Signs (24Hr): Vital Signs - 24 hr 11/06/22 18:00 11/07/22 09:30 Temperature 97.1 F 97.0 F Pulse Rate 82 95 Respiratory Rate 17 18 Blood Pressure 156/74 H 147/78 H Pulse Oximetry 97 96 Oxygen Delivery Method Room Air Room Air BMI result Body Mass Index 25.7 Labs 11/04/22 07:58 Labs: Laboratory Results - last 48 hr 11/05/22 11/05/22 11/05/22 16:24 19:57 23:40 POC Glucose 224 H 226 H 56 L* 11/06/22 11/06/22 11/06/22 00:36 09:44 11:38 POC Glucose 174 H 289 H 213 H 11/06/22 11/06/22 11/07/22 16:26 21:43 08:03 POC Glucose 129 H 371 H* 111 11/07/22 11:31 POC Glucose 229 H Medications Medications Current Medications Acetaminophen (Acetaminophen 325 Mg Tablet) 650 mg PO Q6H PRN PRN Reason: Headache/Pain Mild Scale (1-3) Last Admin: 11/07/22 13:29 Dose: 650 mg Al Hydroxide/Mg Hydroxide (Magnesium Hydrox/Alum Hydrox 30 Ml Oral.Susp) 30 ml PO Q6H PRN PRN Reason: Heartburn/Nausea Atenolol (Atenolol 25 Mg Tablet) 12.5 mg PO DAILY [facility]; Protocol Last Admin: 11/07/22 09:22 Dose: 12.5 mg Atorvastatin Calcium (Atorvastatin Calcium 20 Mg Tablet) 20 mg PO BEDTIME [facility] Last Admin: 11/06/22 22:02 Dose: 20 mg Cyanocobalamin (Cyanocobalamin (Vitamin B-12) 1,000 Mcg Tablet) 1,000 mcg PO DAILY [facility] Last Admin: 11/07/22 09:24 Dose: 1,000 mcg Dextrose (Dextrose 50 % 25 Gm/50 Ml Syringe) 25 gm IVPUSH Q15M PRN; Protocol PRN Reason: per Hypoglycemia Standing Ord. Folic Acid (Folic Acid 1 Mg Tablet) 1 mg PO DAILY [facility] Last Admin: 11/07/22 09:22 Dose: 1 mg Glucose (Glucose Gel 15 Gm Gel..Gram.) 15 gm PO Q15M PRN; Protocol PRN Reason: per Hypoglycemia Standing Ord. Hydroxyzine HCl (Hydroxyzine Hcl 25 Mg Tablet) 25 mg PO Q6H PRN PRN Reason: Anxiety Last Admin: 11/04/22 13:04 Dose: 25 mg Insulin Glargine (Insulin Glargine,Hum.Rec.Anlog 100 Unit/Ml 10 Ml Vial) 30 unit SUBCUT BEDTIME [facility] Last Admin: 11/06/22 22:00 Dose: 30 unit Insulin Human Lispro (Insulin Lispro 100 Unit/Ml 3 Ml Vial) 0 unit SUBCUT QIDACHS [facility]; Protocol Last Admin: 11/07/22 11:40 Dose: 6 unit Letrozole (Letrozole 2.5 Mg Tablet) 2.5 mg PO DAILY [facility] Last Admin: 11/07/22 09:24 Dose: 2.5 mg Levothyroxine Sodium (Levothyroxine Sodium 125 Mcg Tablet) 125 mcg PO DAILY@0600 [facility] Last Admin: 11/07/22 06:14 Dose: 125 mcg Lorazepam (Lorazepam 1 Mg Tablet) 1 mg PO Q4H PRN PRN Reason: ciwa 7-11 Lorazepam (Lorazepam 1 Mg Tablet) 2 mg PO Q4H PRN PRN Reason: ciwa 12-17 Losartan Potassium (Losartan Potassium 25 Mg Tablet) 25 mg PO DAILY [facility]; Protocol Last Admin: 11/07/22 09:22 Dose: 25 mg Magnesium Hydroxide (Milk Of Magnesia 30 Ml Oral.Susp) 30 ml PO DAILY PRN PRN Reason: Constipation Mirtazapine (Mirtazapine 15 Mg Tablet) 15 mg PO BEDTIME [facility] Last Admin: 11/06/22 22:02 Dose: 15 mg Naltrexone HCl (Naltrexone Hcl 50 Mg Tablet) 50 mg PO DAILY [facility] Last Admin: 11/07/22 09:22 Dose: 50 mg Thiamine HCl (Thiamine Hcl 100 Mg Tablet) 100 mg PO DAILY [facility] Last Admin: 11/07/22 09:22 Dose: 100 mg Trazodone HCl (Trazodone Hcl 50 Mg Tablet) 50 mg PO BEDTIME MRX1 PRN PRN Reason: Insomnia Vitamin D (Cholecalciferol (Vitamin D3) 25 Mcg Tablet) 25 mcg PO DAILY [facility] Last Admin: 11/07/22 09:24 Dose: 25 mcg Allergies Allergies Allergy/AdvReac Type Severity Reaction Status Date / Time Penicillins Allergy Unknown RASH Unverified 05/31/20 14:51 Assessment & Plan Assessment & Plan (1) Routine medical exam: Status: Acute Code(s): Z00.00 - Encounter for general adult medical examination without abnormal findings Plan 67-year-old female with history of type 1 diabetes, alcohol use disorder, depression, hypothyroidism, hypertension, hyperlipidemia admitted to Psychiatry with consult placed to Medicine for medical H and P. #Depressive disorder -plan per psychiatry #Alcohol use disorder -no evidence withdrawal at this time -Continue thiamine, add folic acid -plan per Psychiatry # uncontrolled type 1 diabetes with hyperglycemia -reports last A1c was 8.3%, goal <7.0% -continue Lantus 30 units at bedtime -glucose levels uncontrolled. Humalog sliding scale increased by 2 units -continue POC -diabetic diet -Hypoglycemia protocol #HTN- reasonably controlled -continue home meds #HLD -Continue statin #Hypothyroidism -pt euthyroid -continue levothyroxine #H/o breast cancer -continue letrozole #Vitamin B12 deficiency -Initiate PO vitamin b12 Thank you for allowing me to participate in this consult. Signing off at this time. Please do not hesitate to call for further questions. Psychiatry 1. Gather collateral information will try to contact her daughter and arrange a family meeting. 2. Increase Remeron up to 15 mg p.o. q.h.s.. 3. Offered naltrexone for alcohol use disorder. She is more open for her treatment. Informed Consent: understands Reason for contiued inpatient stay Substantial Risk for: inability to function, rapid decompensation and med/psych decompensation Time Spent With Patient Time: Total time managing care of this patient today ____ minutes.
[2022-11-07 17:22] LABS: Glucose, Whole Blood 127 mg/dL (60-115)
[2022-11-07 18:00] VITALS: BP 157/71; PULSE 83; RESP 18; TEMP 37; O2SAT 96
[2022-11-07] MEDS: Insulin Glargine,Hum.rec.anlog 100 UNIT/ML 10 ML VIAL 30 UNIT SUBCUT (20:11)
[2022-11-07] MEDS: Atorvastatin Calcium 20 MG TABLET PO (20:11)
[2022-11-07] MEDS: Mirtazapine 15 MG TABLET PO (20:11)
[2022-11-07 21:00] LABS: Glucose, Whole Blood 438 mg/dL (60-115)
[2022-11-08 02:57] LABS: Glucose, Whole Blood 43 mg/dL (60-115)
[2022-11-08] MEDS: Levothyroxine Sodium 125 MCG TABLET PO (05:25)
--- NOTE | 2022-11-08 05:33 | PC.NURSE ---
Patients HS blood sugar was [address] Stover 12 units Lispro given per scale per MD. 0300 pt symptomatic requested blood sugar was 43 patient given gingerale and caleb crackers per patient request, refused repeat blood sugar.
[2022-11-08 06:00] VITALS: BP 168/79; PULSE 92; RESP 16; O2SAT 98
[2022-11-08 08:05] LABS: Glucose, Whole Blood 125 mg/dL (60-115)
[2022-11-08] MEDS: Thiamine HCL 100 MG TABLET PO (10:22)
[2022-11-08] MEDS: Folic Acid 1 MG TABLET PO (10:22)
[2022-11-08] MEDS: Losartan Potassium 25 MG TABLET PO (10:22)
[2022-11-08] MEDS: Cholecalciferol (Vitamin D3) 25 MCG TABLET PO (10:22)
[2022-11-08] MEDS: Cyanocobalamin (Vitamin B-12) 1,000 MCG TABLET 1000 MCG PO (10:23)
[2022-11-08] MEDS: atenoloL 25 MG TABLET 12.5 MG PO (10:23)
[2022-11-08] MEDS: Naltrexone HCl 50 MG TABLET PO (10:24)
[2022-11-08 11:37] LABS: Glucose, Whole Blood 323 mg/dL (60-115)
[2022-11-08] MEDS: Insulin Lispro 100 UNIT/ML 3 ML VIAL SUBCUT (11:48)
--- NOTE | 2022-11-08 11:49 | HO.PSYCHPN ---
Subjective Subjective Date of Service: 11/08/22 Reason For Visit: Major Depressive Disorder, severe, recurrent Interim History: found reading a book by her window. calm, cooperative. irritated she was not giving insulin for FSBS around 125 this morning, states she is waiting to speak with the hospitalist on the matter. poor sleep overnight 2/2 disruptive environment, planning to discharge thursday. per staff, angry re RN refusing to give insulin against protocol this morning. Mental Status Exam Mental Status Exam Patient Appearance: Well Grooomed and Appropriate Patient Orientation: Person, Place, Time and Situation Level of Consciousness: Awake and Appropriate Patient Behavior: Guarded and Passive Mood Description: Withdrawn Affect Description: Constricted Patient Cognition Impaired: Yes Ability to Follow Directions: Good Speech Pattern: Clear Hallucinations: None Delusions: Not Present Thought Process: Linear Thought Content: positive for Circumstantial Judgement: Fair Diagnostics Vital Signs (24Hr): Vital Signs - 24 hr 11/07/22 18:00 11/08/22 06:00 Temperature 98.6 F Pulse Rate 83 92 Respiratory Rate 18 16 Blood Pressure 157/71 H 168/79 H Pulse Oximetry 96 98 Oxygen Delivery Method Room Air Room Air BMI result Body Mass Index 25.7 Labs 11/04/22 07:58 Labs: Laboratory Results - last 48 hr 11/06/22 11/06/22 11/07/22 16:26 21:43 08:03 POC Glucose 129 H 371 H* 111 11/07/22 11/07/22 11/07/22 11:31 17:16 19:52 POC Glucose 229 H 127 H 438 H* 11/08/22 11/08/22 11/08/22 02:49 07:50 11:33 POC Glucose 43 L* 125 H 323 H Medications Medications Current Medications Acetaminophen (Acetaminophen 325 Mg Tablet) 650 mg PO Q6H PRN PRN Reason: Headache/Pain Mild Scale (1-3) Last Admin: 11/07/22 13:29 Dose: 650 mg Al Hydroxide/Mg Hydroxide (Magnesium Hydrox/Alum Hydrox 30 Ml Oral.Susp) 30 ml PO Q6H PRN PRN Reason: Heartburn/Nausea Atenolol (Atenolol 25 Mg Tablet) 12.5 mg PO DAILY [facility]; Protocol Last Admin: 11/08/22 10:23 Dose: 12.5 mg Atorvastatin Calcium (Atorvastatin Calcium 20 Mg Tablet) 20 mg PO BEDTIME [facility] Last Admin: 11/07/22 20:11 Dose: 20 mg Cyanocobalamin (Cyanocobalamin (Vitamin B-12) 1,000 Mcg Tablet) 1,000 mcg PO DAILY [facility] Last Admin: 11/08/22 10:23 Dose: 1,000 mcg Dextrose (Dextrose 50 % 25 Gm/50 Ml Syringe) 25 gm IVPUSH Q15M PRN; Protocol PRN Reason: per Hypoglycemia Standing Ord. Folic Acid (Folic Acid 1 Mg Tablet) 1 mg PO DAILY [facility] Last Admin: 11/08/22 10:22 Dose: 1 mg Glucose (Glucose Gel 15 Gm Gel..Gram.) 15 gm PO Q15M PRN; Protocol PRN Reason: per Hypoglycemia Standing Ord. Hydroxyzine HCl (Hydroxyzine Hcl 25 Mg Tablet) 25 mg PO Q6H PRN PRN Reason: Anxiety Last Admin: 11/04/22 13:04 Dose: 25 mg Insulin Glargine (Insulin Glargine,Hum.Rec.Anlog 100 Unit/Ml 10 Ml Vial) 30 unit SUBCUT BEDTIME [facility] Last Admin: 11/07/22 20:11 Dose: 30 unit Insulin Human Lispro (Insulin Lispro 100 Unit/Ml 3 Ml Vial) 0 unit SUBCUT QIDACHS [facility]; Protocol Last Admin: 11/08/22 11:48 Dose: 8 unit Letrozole (Letrozole 2.5 Mg Tablet) 2.5 mg PO DAILY [facility] Last Admin: 11/08/22 10:24 Dose: Not Given Levothyroxine Sodium (Levothyroxine Sodium 125 Mcg Tablet) 125 mcg PO DAILY@0600 [facility] Last Admin: 11/08/22 05:25 Dose: 125 mcg Lorazepam (Lorazepam 1 Mg Tablet) 1 mg PO Q4H PRN PRN Reason: ciwa 7-11 Lorazepam (Lorazepam 1 Mg Tablet) 2 mg PO Q4H PRN PRN Reason: ciwa 12-17 Losartan Potassium (Losartan Potassium 25 Mg Tablet) 25 mg PO DAILY [facility]; Protocol Last Admin: 11/08/22 10:22 Dose: 25 mg Magnesium Hydroxide (Milk Of Magnesia 30 Ml Oral.Susp) 30 ml PO DAILY PRN PRN Reason: Constipation Mirtazapine (Mirtazapine 15 Mg Tablet) 15 mg PO BEDTIME [facility] Last Admin: 11/07/22 20:11 Dose: 15 mg Naltrexone HCl (Naltrexone Hcl 50 Mg Tablet) 50 mg PO DAILY [facility] Last Admin: 11/08/22 10:24 Dose: 50 mg Thiamine HCl (Thiamine Hcl 100 Mg Tablet) 100 mg PO DAILY [facility] Last Admin: 11/08/22 10:22 Dose: 100 mg Trazodone HCl (Trazodone Hcl 50 Mg Tablet) 50 mg PO BEDTIME MRX1 PRN PRN Reason: Insomnia Vitamin D (Cholecalciferol (Vitamin D3) 25 Mcg Tablet) 25 mcg PO DAILY [facility] Last Admin: 11/08/22 10:22 Dose: 25 mcg Allergies Allergies Allergy/AdvReac Type Severity Reaction Status Date / Time Penicillins Allergy Unknown RASH Unverified 05/31/20 14:51 Assessment & Plan Assessment & Plan (1) Routine medical exam: Status: Acute Code(s): Z00.00 - Encounter for general adult medical examination without abnormal findings (2) Depressive disorder: Status: Acute Code(s): F32.A - Depression, unspecified (3) Alcohol use disorder: Status: Acute Code(s): F10.90 - Alcohol use, unspecified, uncomplicated Plan 67-year-old female with history of type 1 diabetes, alcohol use disorder, depression, hypothyroidism, hypertension, hyperlipidemia admitted to Psychiatry with consult placed to Medicine for medical H and P. #Depressive disorder -plan per psychiatry #Alcohol use disorder -no evidence withdrawal at this time -Continue thiamine, add folic acid -plan per Psychiatry # uncontrolled type 1 diabetes with hyperglycemia -reports last A1c was 8.3%, goal <7.0% -continue Lantus 30 units at bedtime -glucose levels uncontrolled. Humalog sliding scale increased by 2 units -continue POC -diabetic diet -Hypoglycemia protocol #HTN- reasonably controlled -continue home meds #HLD -Continue statin #Hypothyroidism -pt euthyroid -continue levothyroxine #H/o breast cancer -continue letrozole #Vitamin B12 deficiency -Initiate PO vitamin b12 Thank you for allowing me to participate in this consult. Signing off at this time. Please do not hesitate to call for further questions. Psychiatry 1. Gather collateral information will try to contact her daughter and arrange a family meeting. 2. Increase Remeron up to 15 mg p.o. q.h.s.. 3. Offered naltrexone for alcohol use disorder. She is more open for her treatment. 11/08: no change in mgmt. Reason for contiued inpatient stay Substantial Risk for: inability to function and rapid decompensation Time Spent With Patient Time: Total time managing care of this patient today _15___ minutes.
[2022-11-08 16:40] LABS: Glucose, Whole Blood 143 mg/dL (60-115)
[2022-11-08 18:40] VITALS: BP 143/65; PULSE 76; RESP 16; TEMP 36.3; O2SAT 100
[2022-11-08] MEDS: Atorvastatin Calcium 20 MG TABLET PO (20:19)
[2022-11-08] MEDS: Mirtazapine 15 MG TABLET PO (20:19)
[2022-11-08] MEDS: Insulin Glargine,Hum.rec.anlog 100 UNIT/ML 10 ML VIAL 30 UNIT SUBCUT (20:23)
[2022-11-08 20:33] LABS: Glucose, Whole Blood 282 mg/dL (60-115)
[2022-11-08 21:00] VITALS: BP 140/78; PULSE 78; RESP 16; TEMP 36.5; O2SAT 98
[2022-11-09] MEDS: Levothyroxine Sodium 125 MCG TABLET PO (06:22)
[2022-11-09 07:43] LABS: Glucose, Whole Blood 98 mg/dL (60-115)
[2022-11-09 08:15] VITALS: BP 168/77; PULSE 92; RESP 16; TEMP 36.3; O2SAT 98
[2022-11-09] MEDS: Thiamine HCL 100 MG TABLET PO (08:19)
[2022-11-09] MEDS: Folic Acid 1 MG TABLET PO (08:20)
[2022-11-09] MEDS: Cholecalciferol (Vitamin D3) 25 MCG TABLET PO (08:20)
[2022-11-09] MEDS: atenoloL 25 MG TABLET 12.5 MG PO (08:20)
[2022-11-09] MEDS: Losartan Potassium 25 MG TABLET PO (08:21)
[2022-11-09] MEDS: Cyanocobalamin (Vitamin B-12) 1,000 MCG TABLET 1000 MCG PO (08:21)
[2022-11-09] MEDS: Naltrexone HCl 50 MG TABLET PO (08:21)
[2022-11-09] MEDS: Letrozole 2.5 MG TABLET PO (08:22)
[2022-11-09 11:25] LABS: Glucose, Whole Blood 297 mg/dL (60-115)
[2022-11-09] MEDS: Insulin Lispro 100 UNIT/ML 3 ML VIAL SUBCUT (11:28)
--- NOTE | 2022-11-09 12:14 | P.PNPSI_ITS ---
Subjective Subjective Date of Service: 11/09/22 Reason For Visit: Major Depressive Disorder, severe, recurrent Interim History: states she is doing fine, will DC tomorrow, no questions or concerns. per staff, irritable re insulin mgmt protocol here. Mental Status Exam Mental Status Exam Patient Appearance: Well Grooomed and Appropriate Patient Orientation: Person, Place, Time and Situation Level of Consciousness: Awake and Appropriate Patient Behavior: Guarded and Passive Mood Description: Withdrawn Affect Description: Constricted Patient Cognition Impaired: Yes Ability to Follow Directions: Good Speech Pattern: Clear Hallucinations: None Delusions: Not Present Thought Process: Linear Thought Content: positive for Circumstantial Judgement: Fair Diagnostics Vital Signs (24Hr): Vital Signs - 24 hr 11/08/22 18:40 11/08/22 21:00 11/09/22 08:15 Temperature 97.4 F 97.7 F 97.4 F Pulse Rate 76 78 92 Respiratory Rate 16 16 16 Blood Pressure 143/65 H 140/78 H 168/77 H Pulse Oximetry 100 98 98 Oxygen Delivery Method Room Air Room Air Room Air BMI result Body Mass Index 25.7 Labs 11/04/22 07:58 Labs: Laboratory Results - last 48 hr 11/07/22 11/07/22 11/08/22 17:16 19:52 02:49 POC Glucose 127 H 438 H* 43 L* 11/08/22 11/08/22 11/08/22 07:50 11:33 16:30 POC Glucose 125 H 323 H 143 H 11/08/22 11/09/22 11/09/22 20:17 07:39 11:19 POC Glucose 282 H 98 297 H Medications Medications Current Medications Acetaminophen (Acetaminophen 325 Mg Tablet) 650 mg PO Q6H PRN PRN Reason: Headache/Pain Mild Scale (1-3) Last Admin: 11/07/22 13:29 Dose: 650 mg Al Hydroxide/Mg Hydroxide (Magnesium Hydrox/Alum Hydrox 30 Ml Oral.Susp) 30 ml PO Q6H PRN PRN Reason: Heartburn/Nausea Atenolol (Atenolol 25 Mg Tablet) 12.5 mg PO DAILY NILDA; Protocol Last Admin: 11/09/22 08:20 Dose: 12.5 mg Atorvastatin Calcium (Atorvastatin Calcium 20 Mg Tablet) 20 mg PO BEDTIME [facility] Last Admin: 11/08/22 20:19 Dose: 20 mg Cyanocobalamin (Cyanocobalamin (Vitamin B-12) 1,000 Mcg Tablet) 1,000 mcg PO DAILY [facility] Last Admin: 11/09/22 08:21 Dose: 1,000 mcg Dextrose (Dextrose 50 % 25 Gm/50 Ml Syringe) 25 gm IVPUSH Q15M PRN; Protocol PRN Reason: per Hypoglycemia Standing Ord. Folic Acid (Folic Acid 1 Mg Tablet) 1 mg PO DAILY [facility] Last Admin: 11/09/22 08:20 Dose: 1 mg Glucose (Glucose Gel 15 Gm Gel..Gram.) 15 gm PO Q15M PRN; Protocol PRN Reason: per Hypoglycemia Standing Ord. Hydroxyzine HCl (Hydroxyzine Hcl 25 Mg Tablet) 25 mg PO Q6H PRN PRN Reason: Anxiety Last Admin: 11/04/22 13:04 Dose: 25 mg Insulin Glargine (Insulin Glargine,Hum.Rec.Anlog 100 Unit/Ml 10 Ml Vial) 30 unit SUBCUT BEDTIME [facility] Last Admin: 11/08/22 20:23 Dose: 30 unit Insulin Human Lispro (Insulin Lispro 100 Unit/Ml 3 Ml Vial) 0 unit SUBCUT QIDACHS [facility]; Protocol Last Admin: 11/09/22 11:28 Dose: 8 unit Letrozole (Letrozole 2.5 Mg Tablet) 2.5 mg PO DAILY [facility] Last Admin: 11/09/22 08:22 Dose: 2.5 mg Levothyroxine Sodium (Levothyroxine Sodium 125 Mcg Tablet) 125 mcg PO DAILY@0600 [facility] Last Admin: 11/09/22 06:22 Dose: 125 mcg Losartan Potassium (Losartan Potassium 25 Mg Tablet) 25 mg PO DAILY [facility]; Protocol Last Admin: 11/09/22 08:21 Dose: 25 mg Magnesium Hydroxide (Milk Of Magnesia 30 Ml Oral.Susp) 30 ml PO DAILY PRN PRN Reason: Constipation Mirtazapine (Mirtazapine 15 Mg Tablet) 15 mg PO BEDTIME [facility] Last Admin: 11/08/22 20:19 Dose: 15 mg Naltrexone HCl (Naltrexone Hcl 50 Mg Tablet) 50 mg PO DAILY [facility] Last Admin: 11/09/22 08:21 Dose: 50 mg Thiamine HCl (Thiamine Hcl 100 Mg Tablet) 100 mg PO DAILY [facility] Last Admin: 11/09/22 08:19 Dose: 100 mg Trazodone HCl (Trazodone Hcl 50 Mg Tablet) 50 mg PO BEDTIME MRX1 PRN PRN Reason: Insomnia Vitamin D (Cholecalciferol (Vitamin D3) 25 Mcg Tablet) 25 mcg PO DAILY [facility] Last Admin: 11/09/22 08:20 Dose: 25 mcg Allergies Allergies Allergy/AdvReac Type Severity Reaction Status Date / Time Penicillins Allergy Unknown RASH Unverified 05/31/20 14:51 Assessment & Plan Assessment & Plan (1) Routine medical exam: Status: Acute Code(s): Z00.00 - Encounter for general adult medical examination without abnormal findings (2) Depressive disorder: Status: Acute Code(s): F32.A - Depression, unspecified (3) Alcohol use disorder: Status: Acute Code(s): F10.90 - Alcohol use, unspecified, uncomplicated Plan 67-year-old female with history of type 1 diabetes, alcohol use disorder, depression, hypothyroidism, hypertension, hyperlipidemia admitted to Psychiatry with consult placed to Medicine for medical H and P. #Depressive disorder -plan per psychiatry #Alcohol use disorder -no evidence withdrawal at this time -Continue thiamine, add folic acid -plan per Psychiatry # uncontrolled type 1 diabetes with hyperglycemia -reports last A1c was 8.3%, goal <7.0% -continue Lantus 30 units at bedtime -glucose levels uncontrolled. Humalog sliding scale increased by 2 units -continue POC -diabetic diet -Hypoglycemia protocol #HTN- reasonably controlled -continue home meds #HLD -Continue statin #Hypothyroidism -pt euthyroid -continue levothyroxine #H/o breast cancer -continue letrozole #Vitamin B12 deficiency -Initiate PO vitamin b12 Thank you for allowing me to participate in this consult. Signing off at this time. Please do not hesitate to call for further questions. Psychiatry 1. Gather collateral information will try to contact her daughter and arrange a family meeting. 2. Increase Remeron up to 15 mg p.o. q.h.s.. 3. Offered naltrexone for alcohol use disorder. She is more open for her treatment. 11/08: no change in mgmt. 11/09: no change in mgmt. D/C tomorrow. stable. Reason for contiued inpatient stay Substantial Risk for: stable for discharge Time Spent With Patient Time: Total time managing care of this patient today ____ minutes.
[2022-11-09 16:24] LABS: Glucose, Whole Blood 141 mg/dL (60-115)
--- NOTE | 2022-11-09 17:34 | PC.NURSE ---
Addendum entered and electronically signed by Constanza Warren RN 11/09/22 17:44: COVID results negative, Dr Stover notified. Original Note: Pt reported chills and abd discomfort. Appetite poor for supper. Dr Stover notified, COVID test ordered. Temp 98.3 temporal at 1730. nasal sample sent to lab.
[2022-11-09 17:41] LABS: COVID-19 Test Negative (Negative); IDNOW Serial# 9DB6401D
[2022-11-09 18:00] VITALS: BP 125/59; PULSE 87; RESP 17; TEMP 36.2; O2SAT 95
[2022-11-09] MEDS: Atorvastatin Calcium 20 MG TABLET PO (20:49)
[2022-11-09] MEDS: Mirtazapine 15 MG TABLET PO (20:49)
[2022-11-09 21:00] LABS: Glucose, Whole Blood 182 mg/dL (60-115)
[2022-11-09] MEDS: Insulin Glargine,Hum.rec.anlog 100 UNIT/ML 10 ML VIAL 30 UNIT SUBCUT (21:01)
[2022-11-10] MEDS: Levothyroxine Sodium 125 MCG TABLET PO (05:52)
[2022-11-10 07:30] VITALS: BP 126/59; PULSE 92; RESP 16; TEMP 36.6; O2SAT 96
[2022-11-10 08:00] LABS: Glucose, Whole Blood 148 mg/dL (60-115)
--- NOTE | 2022-11-10 08:11 | P.DS_ITS ---
DS: Providers Provider Date of Service: 11/10/22 Date of admission: 11/03/22 18:26 Date of discharge: 11/10/22 Primary care physician: Vasu Edouard III, MD Consults: 11/03/22 18:46 Consult to Hospitalist Routine Consulting Provider: Hospitalist Reason For Exam: medical H&P DS: Diagnosis Discharge Diagnosis (1) Routine medical exam: Status: Acute (2) Depressive disorder: Status: Acute (3) Alcohol use disorder: Status: Acute DS: Medications Discharge Medications Home Medications: Home Medications Medication Instructions Recorded Confirmed atenolol 25 mg tablet 12.5 mg PO DAILY 11/04/22 11/04/22 atorvastatin 20 mg tablet (Lipitor) 20 mg PO BEDTIME 11/04/22 11/04/22 cholecalciferol (vitamin D3) 25 25 mcg PO DAILY 11/04/22 11/04/22 mcg (1,000 unit) tablet letrozole 2.5 mg tablet 2.5 mg PO DAILY 11/04/22 11/04/22 levothyroxine 125 mcg tablet 125 mcg PO DAILY 11/04/22 11/04/22 losartan 25 mg tablet 25 mg PO DAILY 11/04/22 11/04/22 Mental Status Exam Mental Status Exam Patient Appearance: Well Grooomed and Appropriate Patient Orientation: Person, Place and Situation Level of Consciousness: Awake and Appropriate Patient Behavior: Guarded and Passive Mood Description: Withdrawn Affect Description: Constricted Patient Cognition Impaired: No Ability to Follow Directions: Good Speech Pattern: Clear Hallucinations: None Delusions: Not Present Thought Process: Linear Thought Content: positive for Circumstantial Judgement: Fair Judgement and Insight: Insight improved Data Data Completed and Pending Completed studies during hospitalization [Text1]: 11/03/22 11/04/22 11/04/22 18:49 03:07 07:49 Sodium Potassium Chloride Carbon Dioxide Anion Gap BUN Creatinine Estim Creat Clear Calc Estimated GFR POC Glucose 284 H 155 H 263 H Fasting Glucose Estimat Average Glucose Hemoglobin A1c % Calcium Magnesium Total Bilirubin AST ALT Alkaline Phosphatase Total Protein Albumin Triglycerides Cholesterol LDL Cholesterol, Calc HDL Cholesterol Vitamin B12 Folate TSH Free T4 COVID-19 ([facility]) COVID-19 Clin Com 11/04/22 11/04/22 11/04/22 07:58 07:58 12:32 Sodium 137 Potassium 4.6 Chloride 104 Carbon Dioxide 24 Anion Gap 14 BUN 31 H Creatinine 1.10 Estim Creat Clear Calc TNP Estimated GFR 50 POC Glucose 240 H Fasting Glucose 284 H Estimat Average Glucose 192 Hemoglobin A1c % 8.3 Calcium 9.7 Magnesium 1.9 Total Bilirubin 0.7 AST 16 ALT 21 Alkaline Phosphatase 98 Total Protein 6.4 L Albumin 3.9 Triglycerides 127 Cholesterol 145 LDL Cholesterol, Calc 63 HDL Cholesterol 57 Vitamin B12 < 148 L Folate 10.7 TSH 0.59 Free T4 1.02 COVID-19 ([facility]) COVID-19 Clin Com 11/04/22 11/04/22 11/04/22 14:49 16:54 21:19 Sodium Potassium Chloride Carbon Dioxide Anion Gap BUN Creatinine Estim Creat Clear Calc Estimated GFR POC Glucose 275 H 231 H 222 H Fasting Glucose Estimat Average Glucose Hemoglobin A1c % Calcium Magnesium Total Bilirubin AST ALT Alkaline Phosphatase Total Protein Albumin Triglycerides Cholesterol LDL Cholesterol, Calc HDL Cholesterol Vitamin B12 Folate TSH Free T4 COVID-19 ([facility]) COVID-19 Clin Com 11/05/22 11/05/22 11/05/22 07:17 11:24 16:24 Sodium Potassium Chloride Carbon Dioxide Anion Gap BUN Creatinine Estim Creat Clear Calc Estimated GFR POC Glucose 161 H 210 H 224 H Fasting Glucose Estimat Average Glucose Hemoglobin A1c % Calcium Magnesium Total Bilirubin AST ALT Alkaline Phosphatase Total Protein Albumin Triglycerides Cholesterol LDL Cholesterol, Calc HDL Cholesterol Vitamin B12 Folate TSH Free T4 COVID-19 ([facility]) COVID-19 Clin Com 11/05/22 11/05/22 11/06/22 19:57 23:40 00:36 Sodium Potassium Chloride Carbon Dioxide Anion Gap BUN Creatinine Estim Creat Clear Calc Estimated GFR POC Glucose 226 H 56 L* 174 H Fasting Glucose Estimat Average Glucose Hemoglobin A1c % Calcium Magnesium Total Bilirubin AST ALT Alkaline Phosphatase Total Protein Albumin Triglycerides Cholesterol LDL Cholesterol, Calc HDL Cholesterol Vitamin B12 Folate TSH Free T4 COVID-19 ([facility]) COVID-19 Clin Com 11/06/22 11/06/22 11/06/22 09:44 11:38 16:26 Sodium Potassium Chloride Carbon Dioxide Anion Gap BUN Creatinine Estim Creat Clear Calc Estimated GFR POC Glucose 289 H 213 H 129 H Fasting Glucose Estimat Average Glucose Hemoglobin A1c % Calcium Magnesium Total Bilirubin AST ALT Alkaline Phosphatase Total Protein Albumin Triglycerides Cholesterol LDL Cholesterol, Calc HDL Cholesterol Vitamin B12 Folate TSH Free T4 COVID-19 ([facility]) COVID-19 Clin Com 11/06/22 11/07/22 11/07/22 21:43 08:03 11:31 Sodium Potassium Chloride Carbon Dioxide Anion Gap BUN Creatinine Estim Creat Clear Calc Estimated GFR POC Glucose 371 H* 111 229 H Fasting Glucose Estimat Average Glucose Hemoglobin A1c % Calcium Magnesium Total Bilirubin AST ALT Alkaline Phosphatase Total Protein Albumin Triglycerides Cholesterol LDL Cholesterol, Calc HDL Cholesterol Vitamin B12 Folate TSH Free T4 COVID-19 ([facility]) COVID-19 Clin Com 11/07/22 11/07/22 11/08/22 17:16 19:52 02:49 Sodium Potassium Chloride Carbon Dioxide Anion Gap BUN Creatinine Estim Creat Clear Calc Estimated GFR POC Glucose 127 H 438 H* 43 L* Fasting Glucose Estimat Average Glucose Hemoglobin A1c % Calcium Magnesium Total Bilirubin AST ALT Alkaline Phosphatase Total Protein Albumin Triglycerides Cholesterol LDL Cholesterol, Calc HDL Cholesterol Vitamin B12 Folate TSH Free T4 COVID-19 ([facility]) COVID-19 Clin Com 11/08/22 11/08/22 11/08/22 07:50 11:33 16:30 Sodium Potassium Chloride Carbon Dioxide Anion Gap BUN Creatinine Estim Creat Clear Calc Estimated GFR POC Glucose 125 H 323 H 143 H Fasting Glucose Estimat Average Glucose Hemoglobin A1c % Calcium Magnesium Total Bilirubin AST ALT Alkaline Phosphatase Total Protein Albumin Triglycerides Cholesterol LDL Cholesterol, Calc HDL Cholesterol Vitamin B12 Folate TSH Free T4 COVID-19 ([facility]) COVID-19 Clin Com 11/08/22 11/09/22 11/09/22 20:17 07:39 11:19 Sodium Potassium Chloride Carbon Dioxide Anion Gap BUN Creatinine Estim Creat Clear Calc Estimated GFR POC Glucose 282 H 98 297 H Fasting Glucose Estimat Average Glucose Hemoglobin A1c % Calcium Magnesium Total Bilirubin AST ALT Alkaline Phosphatase Total Protein Albumin Triglycerides Cholesterol LDL Cholesterol, Calc HDL Cholesterol Vitamin B12 Folate TSH Free T4 COVID-19 ([facility]) COVID-19 Clin Com 11/09/22 11/09/22 11/09/22 16:17 17:12 20:48 Sodium Potassium Chloride Carbon Dioxide Anion Gap BUN Creatinine Estim Creat Clear Calc Estimated GFR POC Glucose 141 H 182 H Fasting Glucose Estimat Average Glucose Hemoglobin A1c % Calcium Magnesium Total Bilirubin AST ALT Alkaline Phosphatase Total Protein Albumin Triglycerides Cholesterol LDL Cholesterol, Calc HDL Cholesterol Vitamin B12 Folate TSH Free T4 COVID-19 ([facility]) Negative COVID-19 Clin Com See Note 11/10/22 07:55 Sodium Potassium Chloride Carbon Dioxide Anion Gap BUN Creatinine Estim Creat Clear Calc Estimated GFR POC Glucose 148 H Fasting Glucose Estimat Average Glucose Hemoglobin A1c % Calcium Magnesium Total Bilirubin AST ALT Alkaline Phosphatase Total Protein Albumin Triglycerides Cholesterol LDL Cholesterol, Calc HDL Cholesterol Vitamin B12 Folate TSH Free T4 COVID-19 ([facility]IR[facility]) COVID-19 Clin Com DS: Summary Hospital Course Hospital Course: The patient was admitted into the emergency room after she disclosed suicidal and on the side of thoughts against her while she talked over the phone to 911, the moment of the conversation, she was legally drunk and she had been abusing alcohol for the last months. She was assessed by crisis in the emergency room of [facility], and transferring to this facility for psychiatric stabilization since she has suicidal and missile thoughts by overdosing on insulin. Please see the HPI of the admission note for further details. On admission, the patient initially minimized her alcohol use disorder but later on, she was able to have some insight into her condition. We discussed risks, benefits, side-effects and alternatives and she agreed to try naltrexone that he was titrated up to 50 mg p.o. daily without side effects. We also discussed her depression and we start Remeron that he was titrated up to 50 mg p.o. q.h.s. with for improvement of insomnia. The patient was able to contract for safety, she was more self aware of her substance abuse problem and depression and she adamantly denies suicidal or missile thoughts. She was able to contract for safety. She was also seeing future oriented and more assertive. Since there were no safety concerns discharge planning was discussed. No evidence of psychosis or mood lability. Time spent discussing smoking cessation with patient: 3 to 10 minutes Status at Discharge Cognitive/behavioral status at discharge: At baseline Functional status at discharge: independent ambulation Overall status at discharge: patient is back to baseline Time Spent with Patient Time attestation: Total time managing care of this patient today ___30_ minutes. Time spent: Less than 30 minutes Discharge Plan Discharge Anticipated Discharge Date/Time: 11/10/22 11:00 Patient Disposition: Home, Self-Care Discharge Diagnosis: Major depressive disorder recurrent episode severe. Alcohol use disorder Referrals: Leigh Man NP [Other] - 11/17/22 [facility] [Other] - 1 Week (Referral for therapy placed. ) Vasu Edouard III, MD [Primary Care Provider] - 1 Week Discharge Medications: New naltrexone 50 mg Tablet 50 mg PO DAILY 30 Days Qty: 30 0RF cyanocobalamin (vitamin B-12) [Vitamin B-12] 1,000 mcg Tablet 1,000 mcg PO DAILY 30 Days Qty: 30 0RF folic acid 1 mg Tablet 1 mg PO DAILY 30 Days Qty: 30 0RF mirtazapine 15 mg Tablet 15 mg PO BEDTIME 30 Days Qty: 30 0RF thiamine mononitrate (vit B1) 100 mg Tablet 100 mg PO DAILY 30 Days Qty: 30 0RF Continued atorvastatin [Lipitor] 20 mg Tablet 20 mg PO BEDTIME 30 Days Qty: 30 0RF atenolol 25 mg Tablet 12.5 mg PO DAILY 30 Days Qty: 15 0RF levothyroxine 125 mcg Tablet 125 mcg PO DAILY 30 Days Qty: 30 0RF losartan 25 mg Tablet 25 mg PO DAILY 30 Days Qty: 30 0RF letrozole 2.5 mg Tablet 2.5 mg PO DAILY 30 Days Qty: 30 0RF cholecalciferol (vitamin D3) 25 mcg (1,000 unit) Tablet 25 mcg PO DAILY 30 Days Qty: 30 0RF Discharge Orders: Discharge Order (Routine); Ordered 11/10/22 Ordered By: Omi Mills Diet: Advance to usual diet Activity on Discharge: As tolerated Stand Alone Forms: Patient Portal Discharge page Care Plan Goals: Care plan goals achieved in this admission Health Concerns: Continue medical treatment as an outpatient by primary care physician Plan of Treatment: Continue medication management. Continue psychotherapy Assessment: Elderly female with a long history of major depressive disorder and alcohol use disorder who was admitted into the facility for suicidal and homicidal thoughts against her while she was intoxicated with alcohol. She has never been treated and we started her on Remeron to target insomnia and depression and naltrexone for alcohol cravings. The patient was able to have some insight into her condition and she is willing to continue treatment as an outpatient. At this moment she is future oriented, no evidence of safety concerns at this moment.
[2022-11-10] MEDS: Naltrexone HCl 50 MG TABLET PO (09:35)
[2022-11-10] MEDS: Cyanocobalamin (Vitamin B-12) 1,000 MCG TABLET 1000 MCG PO (09:35)
[2022-11-10] MEDS: atenoloL 25 MG TABLET 12.5 MG PO (09:36)
[2022-11-10] MEDS: Folic Acid 1 MG TABLET PO (09:37)
[2022-11-10] MEDS: Losartan Potassium 25 MG TABLET PO (09:37)
[2022-11-10] MEDS: Cholecalciferol (Vitamin D3) 25 MCG TABLET PO (09:37)
[2022-11-10] MEDS: Letrozole 2.5 MG TABLET PO (09:37)
[2022-11-10] MEDS: Thiamine HCL 100 MG TABLET PO (09:37)
== END 2022-11-10 11:03 | disposition home or self-care (01) | DRG 885 ==
PROVIDERS: Psychiatry & Neurology Psychiatry; Social Worker; Admitting Provider Psychiatry & Neurology Psychiatry; PCP Internal Medicine; Visit Provider Psychiatry & Neurology Psychiatry
DX: F33.2 Major depressive disorder, recurrent severe without psychotic features (principal); R45.851 Suicidal ideations; E03.9 Hypothyroidism, unspecified; F10.10 Alcohol abuse, uncomplicated; E10.65 Type 1 diabetes mellitus with hyperglycemia; E53.8 Deficiency of other specified B group vitamins; I10 Essential (primary) hypertension; R45.850 Homicidal ideations; C50.919 Malignant neoplasm of unspecified site of unspecified female breast; E78.5 Hyperlipidemia, unspecified; Z20.822 Contact with and (suspected) exposure to COVID-19; Z87.891 Personal history of nicotine dependence; Z88.0 Allergy status to penicillin; Z79.811 Long term (current) use of aromatase inhibitors; Z79.890 Hormone replacement therapy; Z79.899 Other long term (current) drug therapy
CPT/HCPCS: 36415; 80053; 80061; 82607; 82746; 82947; 83036; 83735; 84439; 84443; 87635; 93005

== ENCOUNTER 2024-04-12 10:34 | Outpatient (AMB) | payer OTHER, SELFPAY ==
--- NOTE | 2024-04-12 11:13 | A.OFFPC_ITS ---
Vital Signs 04/12/24 11:23 Height 5 ft 3.5 in Weight 144 lb BMI 25.1 BP 126/56 L Blood Pressure Location Rt brachial Position Sitting Pulse 68 Pulse Source Pulse Oximeter Pulse Oximetry (%) 99 Oxygen Delivery Method Room Air Intake Visit Reasons: new patient/ medication/ teacardia Intake Note: Patient is here with her , Timothy. Patient reports she has history of diabe tiffany and cardiac concerns. Drill Rig Operator Required: No Allergies Penicillins Allergy (Unknown, Verified 04/12/24 11:16) RASH Tobacco use date assessed: 04/12/24 Fall risk assessment: No Falls in past year Last assessed Fall Risk: 04/12/24 Dental Screening Dental Screen Date: 04/12/24 Did you have a dental visit in the last 12 months?: Yes Did you have a dental problem in the last 6 months where you did not have access to dental care?: No Was dental information given to patient?: Patient has dentist HPI HPI Comments History of Present Illness Details 67-year-old female with history of type 1 diabetes, alcohol use disorder, depression, hypothyroidism, hypertension, hyperlipidemia presenting to [facility]. Transfer [facility], dr sena. stopped taking her insurance. Diabetes: Has followed with endocrinology. Notes she is stble on Lantus 30 units daily and lispro 8 units TID. Also with hypothyroid -stable on levothyroxine 125mcg daily BH: Has required inpatient care in past. History of etoh use. CV: On atenolol 25mg aily, lipitor 20mg daily, losartan 25mg daily. ROS CONSTITUTIONAL: Denies weight loss, fever and chills. HEENT: Denies changes in vision and hearing. RESPIRATORY: Denies SOB and cough. CV: Denies palpitations and CP GI: Denies abdominal pain, nausea, vomiting and diarrhea. : Denies dysuria and urinary frequency. MSK: Denies new myalgia and joint pain. SKIN: Denies rash and pruritus. NEUROLOGICAL: Denies headache PSYCHIATRIC: Denies recent changes in mood. PHYSICAL EXAM: GENERAL: Alert and oriented x 3. NAD EYES: EOMI. Anicteric. HENT: Moist mucous membranes. No scleral icterus. No cervical lymphadenopathy. LUNGS: Clear to auscultation bilaterally. CARDIOVASCULAR: Regular rate and rhythm. No murmur. No JVD. ABDOMEN: Soft, non-tender +bs EXTREMITIES: No edema. Non-tender. SKIN: No rashes or lesions. Warm. NEUROLOGIC: No focal neurological deficits. CN II-XII grossly intact PSYCHIATRIC: Cooperative. Appropriate mood and affect [facility] Medical History (Updated 04/17/24 @ 20:27 by Carolina Stewart MD) Tachycardia Hypothyroidism Uncontrolled type 1 diabetes mellitus with hyperglycemia Hyperlipidemia Hypertension Breast cancer Alcohol use disorder Depressive disorder Surgical History History of lumpectomy History of back surgery Family History Mother Hypertension Maternal Grandfather Diabetes Brother Diabetes Cancer Sister Diabetes Cancer Social History Household Members: Spouse Housing: Apartment Do you presently have visiting nurse or other home services: No 75 years or older and lives alone: No Alcohol intake: former Year quit: 2021 Patient Tobacco Use Status: Former Tobacco user Tobacco use type: Cigarette Cigarette Packs Per Day: 0.5 Cigarettes Per Day: 10.0 e-Cigarette/Vaping Use: Never Used Second Hand Smoke Exposure: No service: No Current occupational status: retired Sexual orientation: Straight/Heterosexual Cognitive needs: No Hearing needs: No Vision needs: Yes Questionnaire PHQ-9 Over the last 2 weeks, how often have you been bothered by any of the following problems? 1. Little interest or pleasure in doing things: not at all 2. Feeling down, depressed, or hopeless: not at all 3. Trouble falling or staying asleep, or sleeping too much: several days 4. Feeling tired or having little energy: nearly every day 5. Poor appetite or overeating: not at all 6. Feeling bad about yourself - or that you are a failure or have let yourself or your family down: not at all 7. Trouble concentrating on things, such as reading the newspaper or watching television: not at all 8. Moving or speaking so slowly that other people could have noticed. Or the opposite - being so fidgety or restless that you have been moving around a lot more than usual: not at all 9. Thoughts that you would be better off or of hurting yourself in some way: not at all Total score: 4 Depression Screening Interpretation: Negative (neg) Depression Screening Done: Yes 36489 - PHQ-9 Billing: Yes Source: Developed by Drs. Hernán Quintero, Caitlin Marroquin, Jethro Thakur and colleagues, with an educational héctor from [employer]. Thrive Questionnaire Date Thrive assessed: 04/12/24 I am a: Patient What is your living situation today?: I have a steady place to live Within the past 12 months, did the food you bought not last and you didn't have the money to get more?: Never true Within the past 12 months, did you worry whether your food would run out before you got money to buy more?: Never true Do you have trouble paying for medicines?: No Do you have trouble getting transportation to medical appointments?: No Do you have trouble paying your heating and electricity bill?: No Do you have trouble taking care of your child, family member or friend?: No Do you have trouble with day-to-day activities such as bathing, preparing meals, shopping, managing finances, etc.?: No Are you currently unemployed and looking for a job?: No Are you interested in more education?: No Please select the resources that you would like help with: None Currently or been in a relationship where the following occur: No concerns reported THRIVE Score: 0 AUDIT C Alcohol Use Questionnaire (AUDIT-C) 1. How often do you have a drink containing alcohol?: Never 3. How often do you have six or more drinks on one occasion?: Never Total Score: 0 JEANIE-7 AMB Questionnaire JEANIE-7 Date JEANIE - 7 assessed: 04/12/24 Feeling nervous, anxious, or on edge: 1 = Several days Not being able to stop or control worryin = Several days Worrying too much about different things: 1 = Several days Trouble relaxin = Several days Being so restless that it is hard to sit still: 0 = Not at all Becoming easily annoyed or irritable: 1 = Several days Feeling afraid as if something awful might happen: 0 = Not at all Total JEANIE-7 score (0-4 normal; 5-9 mild; 10-14 moderate; 15-21 severe): 5 Source: Developed by Caitlin Lopez Lopez, Jethro Thakur and colleagues, with an educational héctor from [employer]. JEANIE-7 Assessment Billing JEANIE-7 Assessment Tool: JEANIE-7 Assessment 67416 Physical exam (Primary Care) Vital Signs: Last Vital Signs Pulse 68 04/12/24 11:23 BP 126/56 L 04/12/24 11:23 Pulse Ox 99 04/12/24 11:23 Oxygen Delivery Method Room Air 04/12/24 11:23 BMI result Body Mass Index 25.1 Tobacco/Smoking Status: Tobacco use Status Tobacco use date assessed 04/12/24 04/12/24 11:30 Patient Tobacco Use Status Former Tobacco user 04/12/24 11:30 Tobacco use type Cigarette 04/12/24 11:30 e-Cigarette/Vaping Use Never Used 04/12/24 11:30 PHQ-9: PHQ-9 Score PHQ-9: Total score 4 04/17/24 20:27 Depression Screening Interpretation: Negative (neg) Thrive Assessment: Date of Thrive Assessment Date Thrive assessed 04/12/24 04/12/24 11:30 Currently or been in a relationship where the following occur: No concerns reported Assessment and Plan Assessment & Plan (1) Encounter to establish care: Comment: 68 y/o to establish care. past medical. surgical, social and family history reviewed. 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 Panel 04/12/24 E03.9 - Hypothyroidism, unspecified, E10.65 - Type 1 diabetes mellitus with hyperglycemia Hemoglobin A1c 04/12/24 E10.65 - Type 1 diabetes mellitus with hyperglycemia Medications: New gabapentin Take one tablet in the morning and 1-2 tablets oral before bed as needed for pain orally daily; 270 caps 0RF FreeStyle Brianne 2 Sensor (flash glucose sensor) As directed every 14 days VIOLETTA 6 ea 3RF NS E10.65 - Type 1 diabetes mellitus with hyperglycemia fluocinolone 0.025% 1 appl topical BID 60 grams 3RF 90 days Changed From atenolol 25 mg PO DAILY To atenolol 25 mg PO DAILY 90 tabs 3RF 90 days Discontinued folic acid Discontinued Reason: Patient Completed Course 1 mg PO DAILY 30 days 30 tabs 0RF mirtazapine Discontinued Reason: Patient Completed Course 15 mg PO BEDTIME 30 days 30 t abs 0RF naltrexone Discontinued Reason: Patient Completed Course 50 mg PO DAILY 30 days 30 tabs 0RF thiamine mononitrate (vit B1) Discontinued Reason: Patient Completed Course 100 mg PO DAILY 30 days 30 tabs 0RF Coding Level of Care Code New Pt Level 4 (30201) Diagnoses Encounter to establish care Z76.89 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
[2024-04-12 11:23] VITALS: BP 126/56; PULSE 68; O2SAT 99; BMI 25.1
== END 2024-04-12 12:23 | disposition home or self-care (01) ==
PROVIDERS: PCP Family Medicine; Visit Provider Internal Medicine
DX: E10.65 Type 1 diabetes mellitus with hyperglycemia (principal); E06.3 Autoimmune thyroiditis; F32.A Depression, unspecified; Z76.89 Persons encountering health services in other specified circumstances
CPT/HCPCS: 96127; 99204

== ENCOUNTER 2024-06-29 11:36 | Outpatient (REF) | payer OTHER, SELFPAY ==
[2024-06-29 14:46] LABS: Alanine Aminotransferase 19 U/L (0-31); Albumin Level 3.7 g/dL (3.5-5.0); Alkaline Phosphatase 81 U/L (39-117); Anion Gap 9 (12-20); Aspartate Amino Transferase 23 U/L (5-31); Bilirubin Total 0.4 mg/dL (0.0-1.0); Blood Urea Nitrogen 15 mg/dL (9-16); Calcium 9.5 mg/dL (8.4-10.2); Carbon Dioxide 26 mmol/L (22-29); Chloride 109 mmol/L (96-108); Estimated Glomerular Filt Rate > 60; Glucose Random 95 mg/dL (60-115); Potassium 4.5 mmol/L (3.3-5.1); Sodium 139 mmol/L (135-145); Total Protein 6.3 g/dL (6.5-8.0)
[2024-06-29 14:52] LABS: Estimated Average Glucose 140 mg/dL; Hemoglobin A1C 134.6187 umol/L; Hemoglobin A1c % 6.5 % (<6.0); Total Hemoglobin (HGBA1C) 2830.2665 umol/L
[2024-06-29 15:03] LABS: TSH reflex Free T4 < 0.01 uIU/mL (0.32-4.0)
[2024-06-29 15:34] LABS: Free T4 (Free Thyroxine) 1.63 ng/dL (0.71-1.85)
== END 2024-06-29 11:37 | disposition home or self-care (01) ==
LOC: HO.WFDLDS 11:36
PROVIDERS: Visit Provider Internal Medicine
DX: E03.9 Hypothyroidism, unspecified (principal); E10.65 Type 1 diabetes mellitus with hyperglycemia
CPT/HCPCS: 36415; 80053; 83036; 84439; 84443

== ENCOUNTER 2024-07-18 11:19 | Outpatient (AMB) | payer OTHER, SELFPAY ==
--- NOTE | 2024-07-18 11:29 | MHC.PC.OV ---
Vital Signs 07/18/24 11:56 Height 5 ft 3.5 in Weight 145 lb 6 oz BMI 25.3 BP 128/60 Blood Pressure Location Rt brachial Position Sitting Pulse 69 Pulse Source Pulse Oximeter Pulse Oximetry (%) 99 Oxygen Delivery Method Room Air Intake Visit Reasons: DM, back pain 1/2 h Intake Note: Follow up diabetes and back pain. Still taking levothyroxine at 125 mcg. pt never received a call on dose change. Did not start Gabapentin, was afraid of side effects. Allergies Penicillins Allergy (Unknown, Verified 07/18/24 11:51) RASH Tobacco use date assessed: 04/12/24 Dental Screening Dental Screen Date: 04/12/24 HPI HPI Comments History of Present Illness Details 67-year-old female with history of type 1 diabetes, alcohol use disorder, depression, hypothyroidism, hypertension, hyperlipidemia presenting for follow up Diabetes: Has followed with endocrinology. Notes she is stable on Lantus 30 units daily and lispro 8 units TID. Also with hypothyroid - A1C was 6.5%. Levothyroxine decreased to 88mcg based on suppressed TSH with recent labs BH: Has required inpatient care in past. History of etoh use. CV: On atenolol 25mg aily, lipitor 20mg daily, losartan 25mg daily. Due for mammo. History of breast cancer -continues letrozole Colonoscopy last year. ROS CONSTITUTIONAL: Denies weight loss, fever and chills. HEENT: Denies changes in vision and hearing. RESPIRATORY: Denies SOB and cough. CV: Denies palpitations and CP GI: Denies abdominal pain, nausea, vomiting and diarrhea. : Denies dysuria and urinary frequency. MSK: Denies new myalgia and joint pain. SKIN: Denies rash and pruritus. NEUROLOGICAL: Denies headache PSYCHIATRIC: Denies recent changes in mood. PHYSICAL EXAM: GENERAL: Alert and oriented x 3. NAD EYES: EOMI. Anicteric. HENT: Moist mucous membranes. No scleral icterus. No cervical lymphadenopathy. LUNGS: Clear to auscultation bilaterally. CARDIOVASCULAR: Regular rate and rhythm. No murmur. No JVD. ABDOMEN: Soft, non-tender +bs EXTREMITIES: No edema. Non-tender. SKIN: No rashes or lesions. Warm. NEUROLOGIC: No focal neurological deficits. CN II-XII grossly intact PSYCHIATRIC: Cooperative. Appropriate mood and affect [facility] Medical History Tachycardia Hypothyroidism Uncontrolled type 1 diabetes mellitus with hyperglycemia Hyperlipidemia Hypertension Breast cancer Alcohol use disorder Depressive disorder Surgical History History of lumpectomy History of back surgery Family History Mother Hypertension Maternal Grandfather Diabetes Brother Diabetes Cancer Sister Diabetes Cancer Social History Household Members: Spouse Housing: Apartment Do you presently have visiting nurse or other home services: No 75 years or older and lives alone: No Alcohol intake: former Year quit: 2021 Patient Tobacco Use Status: Former Tobacco user Tobacco use type: Cigarette Cigarette Packs Per Day: 0.5 Cigarettes Per Day: 10.0 e-Cigarette/Vaping Use: Never Used Second Hand Smoke Exposure: No service: No Current occupational status: retired Sexual orientation: Straight/Heterosexual Cognitive needs: No Hearing needs: No Vision needs: Yes Questionnaire PHQ-9 Over the last 2 weeks, how often have you been bothered by any of the following problems? 1. Little interest or pleasure in doing things: several days 2. Feeling down, depressed, or hopeless: several days 3. Trouble falling or staying asleep, or sleeping too much: several days 4. Feeling tired or having little energy: several days 5. Poor appetite or overeating: several days 6. Feeling bad about yourself - or that you are a failure or have let yourself or your family down: not at all 7. Trouble concentrating on things, such as reading the newspaper or watching television: not at all 8. Moving or speaking so slowly that other people could have noticed. Or the opposite - being so fidgety or restless that you have been moving around a lot more than usual: not at all 9. Thoughts that you would be better off or of hurting yourself in some way: not at all Total score: 5 Depression Screening Interpretation: Positive Depression Screening Follow-up: Declines treatment Depression Screening Done: Yes 49449 - PHQ-9 Billing: Yes Source: Developed by Drs. Hernán Quintero, Caitlin Marroquin, Jethro Thakur and colleagues, with an educational héctor from [employer]. Thrive Questionnaire Date Thrive assessed: 04/12/24 I am a: Patient What is your living situation today?: I have a steady place to live Within the past 12 months, did the food you bought not last and you didn't have the money to get more?: Never true Within the past 12 months, did you worry whether your food would run out before you got money to buy more?: Never true Do you have trouble paying for medicines?: No Do you have trouble getting transportation to medical appointments?: No Do you have trouble paying your heating and electricity bill?: I choose not to answer this question Do you have trouble taking care of your child, family member or friend?: No Do you have trouble with day-to-day activities such as bathing, preparing meals, shopping, managing finances, etc.?: No Are you currently unemployed and looking for a job?: No Are you interested in more education?: No Please select the resources that you would like help with: None Currently or been in a relationship where the following occur: No concerns reported THRIVE Score: 0 AUDIT C Alcohol Use Questionnaire (AUDIT-C) 1. How often do you have a drink containing alcohol?: Never Total Score: 0 JEANIE-7 AMB Questionnaire JEANIE-7 Date JEANIE - 7 assessed: 04/12/24 Feeling nervous, anxious, or on edge: 1 = Several days Not being able to stop or control worryin = Several days Worrying too much about different things: 0 = Not at all Trouble relaxin = Several days Being so restless that it is hard to sit still: 0 = Not at all Becoming easily annoyed or irritable: 1 = Several days Feeling afraid as if something awful might happen: 0 = Not at all Total JEANIE-7 score (0-4 normal; 5-9 mild; 10-14 moderate; 15-21 severe): 4 Source: Developed by Drs. Hernán Quintero, Caitlin Marroquin, Jethro Thakur and colleagues, with an educational héctor from [employer]. Physical exam (Primary Care) Tobacco/Smoking Status: Tobacco use Status Tobacco use date assessed 04/12/24 07/18/24 11:30 Patient Tobacco Use Status Former Tobacco user 07/18/24 11:30 Tobacco use type Cigarette 07/18/24 11:30 e-Cigarette/Vaping Use Never Used 07/18/24 11:30 Depression Screening Interpretation: Positive Depression Screening Follow-up: Declines treatment Thrive Assessment: Date of Thrive Assessment Date Thrive assessed 04/12/24 07/18/24 11:30 Currently or been in a relationship where the following occur: No concerns reported Coding Level of Care Code Est Pt Level 4 (71944) Diagnoses Type 1 diabetes mellitus with hypoglycemia and without coma E10.649 Diabetes mellitus complication status: with hypoglycemia Diabetes mellitus complication detail: without coma 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 Decrease lantus to 26 units daily. 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
[2024-07-18 11:56] VITALS: BP 128/60; PULSE 69; O2SAT 99; BMI 25.3
== END 2024-07-18 16:07 | disposition home or self-care (01) ==
LOC: HO.HMCFM 11:20
PROVIDERS: PCP Family Medicine; Visit Provider Internal Medicine
DX: E10.649 Type 1 diabetes mellitus with hypoglycemia without coma (principal); E06.3 Autoimmune thyroiditis

== ENCOUNTER → 2024-07-18 11:19 | Outpatient (BNVA) | payer OTHER, SELFPAY | PROVIDERS: PCP Family Medicine; Visit Provider Internal Medicine ==

== ENCOUNTER 2024-08-26 13:42 | Outpatient (REF) | payer OTHER, SELFPAY | END 2024-08-26 13:43 | disposition home or self-care (01) | LOC: HO.MAMMO 13:42 | PROVIDERS: PCP Internal Medicine; Visit Provider Internal Medicine | DX: Z12.31 Encounter for screening mammogram for malignant neoplasm of breast (principal) | CPT/HCPCS: 77063; 77067 ==

== ENCOUNTER → 2024-08-26 13:45 | Outpatient (BNV) | payer OTHER, SELFPAY | PROVIDERS: PCP Internal Medicine; Visit Provider Internal Medicine | DX: Z12.31 Encounter for screening mammogram for malignant neoplasm of breast (principal) | CPT/HCPCS: 77063; 77067 ==

== ENCOUNTER 2024-09-02 11:27 | Outpatient (AMB) | payer OTHER, SELFPAY ==
--- NOTE | 2024-09-02 11:27 | MHC.OFFVIS ---
Vital Signs 09/02/24 11:42 Height 5 ft 3.5 in Weight 142 lb BMI 24.8 BP 148/62 H Blood Pressure Location Lt brachial Position Sitting Pulse 77 Intake Visit Reasons: malignant neoplasm of the breast Intake Note: Patient is seen in office for malignant neoplasm of the breast. Pt c/o:breast cancer in 2017, has been following with Juli since and is transferring care, did genetic testing in the past mm:06/26/24 (pending) Reference Library Assistant Required: No Accompanied by: Self / Same As Patient Allergies Penicillins Allergy (Unknown, Verified 09/02/24 11:38) RASH HPI Comments Details: 69-year-old female patient with a prior history of diabetes mellitus type 1, alcohol use disorder, depression, hypothyroidism, hypertension, and hyperlipidemia presenting today for a breast cancer follow-up. She was previously followed at [facility] for a previous left breast cancer treated with left breast lumpectomy with sentinel node biopsy (2017) followed by radiation therapy and treatment with letrozole 2.5 mg daily. She continues on the letrozole currently. She denies any palpable lump or other new breast symptoms. Her most recent mammogram performed here at [facility] on 08/26/2024 revealed no mammographic evidence of malignancy (BI-RADS 2). She is uncertain why she is here today and seems annoyed that she would have to see both an oncologist and a breast surgeon. [facility] Medical History Tachycardia Hypothyroidism Uncontrolled type 1 diabetes mellitus with hyperglycemia Hyperlipidemia Hypertension Breast cancer Alcohol use disorder Depressive disorder Surgical History History of lumpectomy History of back surgery Family History Mother Hypertension Maternal Grandfather Diabetes Brother Diabetes Cancer Sister Diabetes Breast cancer Social History Household Members: Spouse Housing: Apartment Do you presently have visiting nurse or other home services: No 75 years or older and lives alone: No Alcohol intake: former Year quit: 2021 Patient Tobacco Use Status: Former Tobacco user Tobacco use type: Cigarette Cigarette Packs Per Day: 0.5 Cigarettes Per Day: 10.0 e-Cigarette/Vaping Use: Never Used Second Hand Smoke Exposure: No service: No Current occupational status: retired Sexual orientation: Straight/Heterosexual Cognitive needs: No Hearing needs: No Vision needs: Yes Female Reproductive History Menstrual Total pregnancies: 3 Full term: 1 Review of Systems Const All systems reviewed & are unremarkable except as noted in HPI and below Denies chills, Denies fever(s), Denies headache(s), Denies poor appetite and Denies weakness ENT Denies headache(s) Card Denies chest pain, Denies irregular heart rhythm, Denies palpitations and Denies dyspnea Resp Denies cough, Denies excessive phlegm production and Denies dyspnea GI Denies abdominal pain, Denies bloating, Denies change in bowel habits, Denies constipation, Denies heartburn, Denies diarrhea, Denies nausea and Denies vomiting Denies urinary frequency Musc Denies back pain, Denies muscle weakness and Denies numbness Skin/Breast Denies changing lesions and Denies unusual bruising Neuro Denies headache(s), Denies numbness, Denies paresthesias and Denies weakness Psych Denies anxiety and Denies depression Endo Denies palpitations Emmett/Lymph Denies lymphadenopathy Physical Exam Vital Signs: Last Vital Signs Pulse 77 09/02/24 11:42 BP 148/62 H 09/02/24 11:42 BMI result Body Mass Index 24.8 Const General: cooperative and no acute distress Nutritional Appearance: well nourished Orientation/consciousness: patient oriented x3 Limitations: no limitations HEENT Head: Yes normocephalic and Yes atraumatic Ears: hearing grossly normal bilaterally Chest Other: Left breast: No skin change, no nipple retraction, no nipple discharge, no palpable mass, no enlarged lymph nodes. Well-healed periauricular incision in the 6 to 9 o'clock position. Right breast: No skin change, no nipple retraction, no nipple discharge, no palpable mass, no enlarged lymph nodes Chest/axillae images: 1. Resp Effort & Inspection: normal respiratory effort, no audible wheezes, no cough and no respiratory distress Cardio Jugular venous distension: no JVD GI Inspection: Yes normal to inspection Skin Other: Warm, dry, no rash Neuro General: patient oriented x3 Extrem General: Yes no clubbing, cyanosis or edema Assessment & Plan Assessment & Plan (1) Breast cancer: Code(s): C50.919 - Malignant neoplasm of unspecified site of unspecified female breast Category: Medical Qualifiers: Breast location: lower inner quadrant of breast Estrogen receptor status: positive Patient sex: female Laterality: left Qualified Code(s): C50.312 - Malignant neoplasm of lower-inner quadrant of left female breast; Z17.0 - Estrogen receptor positive status [ER+] Plan 69-year-old female patient with a prior history of left breast carcinoma status post left breast lumpectomy, sentinel node biopsy, radiation therapy and letrozole 2.5 mg daily. Examination today revealed no suspicious findings in either breast. Her most recent mammogram of 08/26/2024 revealed no mammographic evidence of malignancy (BI-RADS 2). I recommended continued monthly self-examination as well as twice yearly clinical breast examination. She will be due for an annual mammogram in 09/02/2025. She is welcome to return to our office for clinical breast examination or continue with examination by her nocturnist, PMD, or oncologist. She expressed understanding and agrees with the plan. Coding Level of Care Code New Pt Level 4 (94064) Diagnoses Malignant neoplasm of lower-inner quadrant of left breast in female, estrogen receptor positive C50.312; Z17.0 Breast location: lower inner quadrant of breast Estrogen receptor status: positive Patient sex: female Laterality: left
[2024-09-02 11:42] VITALS: BP 148/62; PULSE 77; BMI 24.8
== END 2024-09-02 11:58 | disposition home or self-care (01) ==
PROVIDERS: PCP Family Medicine; Visit Provider Surgery
DX: C50.312 Malignant neoplasm of lower-inner quadrant of left female breast (principal); Z17.0 Estrogen receptor positive status [ER+]
CPT/HCPCS: 99204

== ENCOUNTER 2024-10-14 14:04 | Outpatient (AMB) | payer OTHER, SELFPAY ==
--- OUTSIDE RECORDS SUMMARY | 2024-10-14 14:07 | XMS_ITS | Encounter Summary ---
Author Organization [facility] Address [address] [place] [address] Care Team Providers Care Forensic Examiner Name Role Phone Vasu Edouard MD Primary Care Provider [phone] [facility], [facility] Primary Care Provider Unavailabl e Reason for Visit * Reason Onset Date Comments Faxed Refill 07/04/2022 Encounter Details Date Type Department Care Team Description 07/04/2022 Refill Adult Medicine [address] [phone] Vasu Edouard MD [address] [place] [address] [phone] Faxed Refill Social History Tobacco Use Types Packs/Day Years Used Date Smoking Tobacco: Former Cigarettes 1 3 Q uit: 09/14/1984 Smokeless Tobacco: Never Comments:started smoking @16 Alcohol Use Standard Drinks/Week Comments Yes 0 (1 standard drink = 0.6 oz pur e alcohol) wine with meals Sex Assigned at Date Recorded Female 08/06/2021 6:[address] Job Start Date Occupation Industry Not on file Not on file Not on file documented as of this encounter Miscellaneous Notes * Telephone Encounter - Seda Saeed - 07/05/2022 8:48 AM EDT Lab Results Component Value Date HGBA1C 8.0 02/24/2022 MALBUR 9.3 01/16/2021 MALBCR < 6.2 01/16/2021 CHOL 141 06/25/2021 LDL 42 06/25/2021 HDL 76 06/25/2021 TRIG 115 06/25/2021 GLU 149 02/24/2022 CREAT 0.99 02/24/2022 * Telephone Encounter - Jessenia Tomlin - 07/04/2022 4:23 PM EDT Patient would like script to be: E-PRESCRIBED/FAXED TO PHARMACY WHEN WAS THE PATIENT'S LAST APPOINTMENT IN ADULT MEDICINE? 02/28/22 WHEN WAS THE LAST TIME THE PATIENT SAW THEIR PCP? 04/29/2011 Does patient have an upcoming appointment? Yes 09/26/22 (THE MEDICATION REQUESTED IS ON THE MED LIST ABOVE) All of the medications requested were on the CURRENT MEDS list Did you check the Pharmacy information above?: YES Patient wants: 90 -day supply Is this a mail order prescription request ? YES If the refill is from a FAXED refill request what is the RX # listed on the fax? N/A Patients current insurance carrier is: Payor: [facility] / Plan: [facility] MEDICARE COMPLETE $0 [id number] / Product Type: HMO [id number] documented in this encounter Plan of Treatment Not on file documented as of this encounter Visit Diagnoses Not on filedocumented in this encounter Care Teams Forensic Examiner Relationship Specialty Start Date End Date Vasu Edouard MD [address] [place] [id number] PCP - General Internal Medicine 03/23/20 06/22/24 [facility], Pcp [address] [place] [address] MARK Avila [address] PCP - General Internal Medicine 06/23/24 documented as of this encounter
--- OUTSIDE RECORDS SUMMARY | 2024-10-14 14:07 | XMS_ITS | Encounter Summary ---
Author Organization [facility] Address [address] [place] [address] Care Team Providers Care Data Center Project Manager Name Role Phone Wild Smart MD Primary Care Provider Unavail able Vasu Edouard MD Primary Care Provider [phone] Vasu Edouard MD Primary Care Provider [phone] [facility], [facility] Primary Care Provider Unavailabl e Encounter Details Date Type Department Care Team Description 02/22/2013 Pt. Non Urgent Medic al Question OBGYN - [place] [address] [place] [address] [phone] Katherine Dhaliwal MD Social History Tobacco Use Types Packs/Day Years Used Date Smoking Tobacco: Former Cigarettes 1 3 Q uit: 09/14/1984 Smokeless Tobacco: Never Comments:started smoking @16 Alcohol Use Standard Drinks/Week Comments Yes 0 (1 standard drink = 0.6 oz pur e alcohol) occ - wine with meals Sex Assigned at Date Recorded Female 08/06/2021 6:[address] Job Start Date Occupation Industry Not on file Not on file Not on file documented as of this encounter Progress Notes * Corrina Crain R.N. - 02/22/2013 10:06 AM EDTFrom: DANYELLE OJEDA To: Katherine Dhaliwal MD Sent: ThuFeb 22, 2013 8:39 AM Subject: cancer Dr. Dhaliwal, should I have the blood test for diagnosing the genes for breast cancer? Thank you. Hannah Ojeda documented in this encounter Plan of Treatment Not on file documented as of this encounter Visit Diagnoses Not on filedocumented in this encounter Care Teams Data Center Project Manager Relationship Specialty Start Date End Date Wild Smart MD PCP - General 05/29/1993 04/18/15 Vasu Edouard MD [address] [place], [place] [phone] PCP - General Internal Medicine 03/23/20 06/22/24 Vasu Edouard MD [address] [place] [address] PCP - General 04/19/15 03/22/[address] [address] PCP - General Internal Medicine 06/23/24 documented as of this encounter
--- OUTSIDE RECORDS SUMMARY | 2024-10-14 14:07 | XMS_ITS | Encounter Summary ---
Author Organization [facility] Address [address] [place] [address] Care Team Providers Care Archival Records Clerk Name Role Phone Vasu Edouard MD Primary Care Provider [phone] [facility], Pcp Primary Care Provider Unavailabl e Encounter Details Date Type Department Care Team Description 01/13/2023 Patternmaker Hand Report Medical Records [address] [place] [address] Abstract, Provider Social History Tobacco Use Types Packs/Day Years [...] on file documented as of this encounter Plan of Treatment Not on file documented as of this encounter Visit Diagnoses Not on filedocumented in this encounter Care Teams Archival Records Clerk Relationship Specialty Start Date End Date Vasu Edouard MD [address] [place] [address] [phone] PCP - General Internal Medicine 03/23/20 06/22/24 [facility], Pcp [address] [place] [phone] PCP - General Internal Medicine 06/23/24 documented as of this encounter
--- OUTSIDE RECORDS SUMMARY | 2024-10-14 14:07 | XMS_ITS | Encounter Summary ---
Author Organization [facility] Address [address] [place] [address] Care Team Providers Care Studio Grip Name Role Phone Wild Smart MD Primary Care Provider Unavail able Vasu Edouard MD Primary Care Provider [phone] Vasu Edouard MD Primary Care Provider [phone] [facility], [facility] Primary Care Provider Unavailabl e Encounter Details Date Type Department Care Team Description 04/22/2011 Hospital Medical Records [address] [place] [address] Devin Leong MD Social History Tobacco Use Types Packs/Day Years Used Date Smoking Tobacco: Former Cigarettes 1 3 Q uit: 09/14/1984 Smokeless Tobacco: Never Comments:started smoking @16 Alcohol Use Standard Drinks/Week Comments Not Currently 0 (1 standard drink = 0.6 oz pur e alcohol) quit 10/2022 Sex Assigned at Date Recorded Female 08/06/2021 6:[address] Job Start Date Occupation Industry Not on file Not on file Not on file documented as of this encounter Plan of Treatment Not on file documented as of this encounter Visit Diagnoses Not on filedocumented in this encounter Care Teams Studio Grip Relationship Specialty Start Date End Date Wild Smart MD PCP - General 05/29/1993 04/18/15 Vasu Edouard MD [address] [place] [phone] PCP - General Internal Medicine 03/23/20 06/22/24 Vsau Edouard MD [address] [place] [address] PCP - General 04/19/15 03/22/20 [facility], Pcp [address] [place] [address] PCP - General Internal Medicine 06/23/24 documented as of this encounter
--- OUTSIDE RECORDS SUMMARY | 2024-10-14 14:07 | XMS_ITS | Encounter Summary ---
Author Organization [facility] Address [address] [place] [address] Care Team Providers Care Time Study Engineer Name Role Phone Vasu Edouard MD Primary Care Provider [phone] Vasu Edouard MD Primary Care Provider [phone] [facility], Pcp Primary Care Provider Unavailabl e Encounter Details Date Type Department Care Team Description 07/20/2017 Orders Only Mammography - [place] [address] [place] [address] [phone] Wild Smart MD Social History Tobacco Use Types Packs/Day [...] on filedocumented in this encounter Care Teams Time Study Engineer Relationship Specialty Start Date End Date Vasu Edouard MD [address] [place] [phone] PCP - General Internal Medicine 03/23/20 06/22/24 Vasu Edouard MD [address] [place] [address] PCP - General 04/19/15 03/22/20 [facility] Pcp [address] [place] [address] PCP - General Internal Medicine 06/23/24 documented as of this encounter
--- OUTSIDE RECORDS SUMMARY | 2024-10-14 14:07 | XMS_ITS | Encounter Summary ---
Author Organization [facility] Address [address] [place] [address] Care Team Providers Care Putty Worker Name Role Phone Vasu Edouard MD Primary Care Provider [phone] [facility], Pcp Primary Care Provider Unavailabl e Encounter Details Date Type Department Care Team Description 04/09/2021 Pt. Non Urgent Medic al Question Adult Medicine [address] [id number] Heike Whitten PA Social History Tobacco Use Types Packs/Day Years [...] encounter Miscellaneous Notes * Telephone Encounter - Emley Lenz M.A. - 04/09/2021 9:30 AM EDTFrom: Kylah Brice To: Neida Cobian Sent: 04/09/2021 9:16 AM EDT Subject: new medication Good morning Heike. Did you order Atorvastatin - 20mg for cholesterol treatment for me? I received this yesterday. We did not talk about this. Thank you. Kylah Brice (1955) documented in this encounter Plan of Treatment Not on file documented as of this encounter Visit Diagnoses Not on filedocumented in this encounter Care Teams Putty Worker Relationship Specialty Start Date End Date Vasu Edouard MD [address] [place] [address] PCP - General Internal Medicine 03/23/20 06/22/24 [place] [address] PCP - General Internal Medicine 06/23/24 documented as of this encounter
--- OUTSIDE RECORDS SUMMARY | 2024-10-14 14:07 | XMS_ITS | Encounter Summary ---
Author Organization [facility] Address [address] [place] [address] Care Team Providers Care Tax Compliance Representative Name Role Phone Wild Smart MD Primary Care Provider Unavail able Vasu Edouard MD Primary Care Provider [phone] Vasu Edouard MD Primary Care Provider [phone] [facility], [facility] Primary Care Provider Unavailabl e Encounter Details Date Type Department Care Team Description 03/03/2005 Orders Only Medical [address] [place] [id number] Wild Smart MD DIABETES MELLITUS TYPE I-UNCOMPL (Primary Dx) Social History Tobacco Use Types Packs/Day Years Used Date Smoking Tobacco: Never Assessed Sex Assigned at Date Recorded Female 08/06/2021 6:[address] Job Start Date Occupation Industry Not on file Not on file Not on file documented as of this encounter Plan of Treatment Scheduled Orders Name Type Priority Associated Diagnoses Orde r Schedule VENIPUNCTURE Lab Routine Diabetes Mellitus Type I-Uncompl Ordered: 03/03/2005 documented as of this encounter Procedures Procedure Name Priority Date/Time Associated Diagnosis Comments MICROALBUMIN/CREATIN INE, URINE Routine 03/03/2005 3:23 PM EDT Diabetes Mellitus Type I-Uncompl CHG BASIC METABOLIC PANEL CALCIUM TOTAL Routine 03/03/2005 3:23 PM EDT Diabetes Mellitus Type I-Uncompl HEMOGLOBIN A1C Routine 03/03/2005 3:23 PM EDT Diabetes Mellitus Type I-Uncompl CHG TRANSFERASE ALANINE AMINO ALT SGPT Routine 03/03/2005 3:23 PM EDT Diabetes Mellitus Type I-Uncompl CHG TRANSFERASE ASPARTATE AMINO AST SGOT Routine 03/03/2005 3:23 PM EDT Diabetes Mellitus Type I-Uncompl THYROID PROFILE W/TSH Routine 03/03/2005 3:23 PM EDT Diabetes Mellitus Type I-Uncompl CHG LIPID PANEL Routine 03/03/2005 3:23 PM EDT Diabetes Mellitus Type I-Uncompl documented in this encounter Results * TRANSAMINASE (SGPT)(ALT) UV- (03/03/2005 3:23 PM EDT) ALT (SGPT) 14 10 - 60 U/L [facility] 03/03/2005 3:23 PM EDT 03/03/2005 3:25 PM EDT Wild Smart MD LAB Performing Organization Address [facility] Co de Phone Number [facility] * TRANSAMINASE (SGOT)(AST) UV- (03/03/2005 3:23 PM EDT) AST (SGOT) 17 10 - 42 U/L [facility] 03/03/2005 3:23 PM EDT 03/03/2005 3:25 PM EDT Wild Smart MD LAB Performing Organization Address [facility]/ZIP Co de Phone Number [facility] [employer] * (ABNORMAL) MICROALBUMIN/CREATININE, URINE (03/03/2005 3:23 PM EDT) MICROALBUMIN, RANDOM 7.4 0.0 - 29.0 mg/L [facility] MICROALB/CRE RATIO RANDOM 46.2(H) 0.0 - 30.0 mg/G [facility] CREATININE, RANDOM URINE 16 mg/dL [facility] 03/03/2005 3:23 PM EDT 03/03/2005 3:25 PM EDT Wild Smart MD LAB [facility] * (ABNORMAL) HEMOGLOBIN A1C (03/03/2005 3:23 PM EDT) GLYCOSYLATED HEMOGLOBIN A1C 8.5(H) 4.0 - 6.0 % [facility] 03/03/2005 3:23 PM EDT 03/03/2005 3:25 PM EDT Wild Smart MD LAB Performing Organization Address [facility]/ZIP Co de Phone Number [facility] * THYROID PROFILE W/TSH (03/03/2005 3:23 PM EDT) Pathologist [facility] TSH CASCADE 0.79 0.40 - 4.00 uIU/ml [facility] 03/03/2005 3:23 PM EDT 03/03/2005 3:25 PM EDT Wild Smart MD LAB Performing Organization Address [facility]/ZIP Co de Phone Number [facility] * LIPID PROFILE (03/03/2005 3:23 PM EDT) Cholesterol 157 0 - 200 mg/dL [facility] TRIGLYCERIDES 74 0 - 150 mg/dL [facility] HDL CHOLESTEROL 88 >40 mg/dL [facility] LDL CALCULATED 55 0 - 100 mg/dL [facility] TC-HDLC RATIO 1.8 0 - 4.4 mg/dL [facility] 03/03/2005 3:23 PM EDT 03/03/2005 3:25 PM EDT Wild Smart MD LAB [facility] * (ABNORMAL) BASIC METABOLIC PANEL (03/03/2005 3:23 PM EDT) GLUCOSE 243(H) 70 - 110 mg/dL [facility] Blood Urea Nitrogen 15 5 - 25 mg/dL [facility] creatinine 0.6(L) 0.7 - 1.5 mg/dL [facility] Sodium 134 133 - 145 mEq/L [facility] Potassium 4.5 3.5 - 5.2 mEq/L [facility] Chloride 101 96 - 108 mEq/L [facility] CARBON DIOXIDE (CO2) 25.2 21.0 - 32.0 mEq/L [facility] CALCIUM 9.2 8.5 - 10.5 mg/dL [facility] 03/03/2005 3:23 PM EDT 03/03/2005 3:25 PM EDT Wild Smart MD LAB [facility] documented in this encounter Visit Diagnoses Diagnosis Type I (juvenile type) diabetes mellitus without mention of complication, not stated as uncontrolled- Primary documented in this encounter Care Teams Tax Compliance Representative Relationship Specialty Start Date End Date Wild Smart MD PCP - General 05/29/1993 04/18/15 Vasu Edouard MD [address] [place] [address] PCP - General Internal Medicine 03/23/20 06/22/24 Vasu Edouard MD [address] [place] [address] PCP - General 04/19/15 03/22/[address] [address] PCP - General Internal Medicine 06/23/24 documented as of this encounter
--- OUTSIDE RECORDS SUMMARY | 2024-10-14 14:07 | XMS_ITS | Encounter Summary ---
Author Organization [facility] Address [address] [place] [address] Care Team Providers Care Center Customer Service Associate Name Role Phone Vasu Edouard MD Primary Care Provider Vasu Edouard MD Primary Care Provider [phone] [facility], Pcp Primary Care Provider Unavailabl e Encounter Details Date Type Department Care Team Description 10/01/2017 Quality Compliance Manager Report Medical Records [address] [place] [phone] Emely Ashton Social History Tobacco Use Types Packs/Day Years [...] on filedocumented in this encounter Care Teams Center Customer Service Associate Relationship Specialty Start Date End Date Vasu Edouard MD [address] [place] [address] PCP - General Internal Medicine 03/23/20 06/22/24 Vasu Edouard MD [address] [place] [address] [phone] PCP - General 04/19/15 03/22/20 [facility], Pcp [address] [place] [address] PCP - General Internal Medicine 06/23/24 documented as of this encounter
--- OUTSIDE RECORDS SUMMARY | 2024-10-14 14:07 | XMS_ITS | Encounter Summary ---
Author Organization [facility] Address [address] [place] [address] Care Team Providers Care Technology Support Analyst Name Role Phone Vasu Edouard MD Primary Care Provider [phone] Vasu Edouard MD Primary Care Provider [phone] [facility], Pcp Primary Care Provider Unavailabl e Encounter Details Date Type Department Care Team Description 08/12/2017 Orders Only General Surgery - [address] [place] [phone] Carolina Walton MD [address] [place] [address] [phone] Social History Tobacco Use Types Packs/Day Years [...] on file documented as of this encounter Results * (ABNORMAL) BASIC METABOLIC PANEL (08/12/2017 11:36 AM EST) GLUCOSE 113(H) 70 - 100 mg/dL 08/12/2017 3:18 PM EST [facility] Comment:Reference range appl icable to fasting specimens only Blood Urea Nitrogen 18 5 - 25 mg/dL 08/12/2017 3:18 PM EST [facility] CREAT 0.77 0.5 - 1.1 mg/dL 08/12/2017 3:18 PM EST [facility] GLOMERULAR FILTRATION RATE > 60 08/12/2017 3:18 PM EST [facility] Comment: If patient is -Mexican, multiply result by 1.21 Chronic Kidney Disease: < 60 ml/min/1.73 square meters Kidney Failure: < 15 ml/min/1.73 square meters NA 136 133 - 145 mmol/L 08/12/2017 3:18 PM EST [facility] K 4.6 3.5 - 5.5 mmol/L 08/12/2017 3:18 PM EST [facility] CL 101 96 - 110 mmol/L 08/12/2017 3:18 PM EST [facility] CARBON DIOXIDE (CO2) 25 21 - 32 mmol/L 08/12/2017 3:18 PM EST [facility] ANION GAP 10 3 - 11 08/12/2017 3:18 PM EST [facility] CALCIUM 9.2 8.5 - 10.5 mg/dL 08/12/2017 3:18 PM EST [facility] 08/12/2017 11:3 6 AM EST 08/12/2017 11:37 AM EST Narrative [facility] - 08/12/2017 3:18 PM EST Mri of right breast Carolina Walton MD LAB Performing Organization Address City/State/[facility] Co de Phone Number [facility] documented in this encounter Visit Diagnoses Not on filedocumented in this encounter Care Teams Technology Support Analyst Relationship Specialty Start Date End Date Vasu Edouard MD [address] [place] [address] [phone] PCP - General Internal Medicine 03/23/20 06/22/24 Vasu Edouard MD [address] [place] [address] PCP - General 04/19/15 03/22/20 [facility], Pcp [address] [place] [phone] PCP - General Internal Medicine 06/23/24 documented as of this encounter
--- OUTSIDE RECORDS SUMMARY | 2024-10-14 14:07 | XMS_ITS | Clinical Summary ---
Author Organization [facility] Address [address] [place] [address] Care Team Providers Care Apparatus Engineering Technologist Name Role Phone Vasu Edouard MD Primary Care Provider [phone] Allergies Active Allergy Reactions Criticality Noted Date Comments Penicillins 02/22/2020 Medications Medication Sig Dispensed Refills Start Date End Date Status vitamin D3 (VITAMIN D3) 25 MCG (1000 UT) tablet Take 1 tablet (1,000 Units total) by mouth daily. 0 Active levothyroxine (SYNTHROID, LEVOXYL) tablet 100 mcg Take 1 tablet (100 mcg total) by mouth every morning on an empty stomach. 0 Active atenolol (TENORMIN) tablet 25 mg Take 1 tablet (25 mg total) by mouth daily. 0 Active losartan (COZAAR) tablet 25 mg Take 1 tablet (25 mg total) by mouth daily. 0 Active fluocinolone (SYNALAR) 0.025 % ointment Apply topically 2 (two) times a day. 0 Active naproxen (NAPROSYN) 500 MG tablet Take 1 tablet (500 mg total) by mouth 2 (two) times a day with meals. 0 Active insulin glargine (LANTUS) injection 100 units/mL Inject under the skin every night at bedtime. 0 Active insulin lispro (HumaLOG) injection 100 units/mL Inject under the skin 3 (three) times a day before meals. 0 Active letrozole (FEMARA) 2.5 MG tablet TAKE 1 TABLET BY MOUTH DAILY 100 tablet 2 07/15/2024 Active Active Problems No known active problems Social History Tobacco Use Types Packs/Day Years Used Date Smoking Tobacco: Former Smokeless Tobacco: Never Alcohol Use Standard Drinks/Week Comments Yes 21 (1 standard drink = 0.6 oz pu re alcohol) Sex and Gender Information Value Date Recorded Sex Assigned at Not on file Gender Identity Not on file Sexual Orientation Not on file Job Start Date Occupation Industry Not on file Not on file Not on file Last Filed Vital Signs Vital Sign Reading Time Taken Comments Blood Pressure 159/68 08/27/2023 1:44 PM EST Pulse 83 08/27/2023 1:44 PM EST Temperature 36.6 ??C (97.9 ??F) 08/27/2023 1:44 PM ES T Respiratory Rate - - Oxygen Saturation 100% 08/27/2023 1:44 PM EST Inhaled Oxygen Concentration - - Weight 68.9 kg (152 lb) 08/27/2023 1:44 PM EST Height 162.6 cm (5' 4 ) 08/27/2023 1:44 PM EST Body Mass Index 26.09 08/27/2023 1:44 PM EST Plan of Treatment Health Maintenance Due Date Last Done Comments Hepatitis C Screening 1955 Depression Screening 1967 Preventative Health Evaluation 1973 DTap / Tdap / Td (1 - Tdap) 1974 Colon Cancer Screening (Colonoscopy) 2000 Breast Cancer Screening (Mammogram) 2005 Fall Risk Assessment 2020 Osteoporosis Screening (DEXA Scan) 2020 COVID-19 Vaccine ( season) 2024 12/22/2021, 06/25/2021, 11/15/2020, Additional history exists Influenza Vaccine (#1) 2024 2, 07/04/2021, 05/23/2020, Additional history exists Pneumococcal Vaccine (3 of 3 - PPSV23 or PCV20) 02/28/2027 02/28/2022, 07/31/2008 RSV Adult > 60+ Yrs or (1 - 1-dose 75+ series) 2030 Shingrix-Zoster Vaccine Completed 08/31/2020, 05/09 Hepatitis B Vaccines Aged Out No long er eligible based on patient's age to complete this topic RSV Ped < 20 months Aged Out No longe r eligible based on patient's age to complete this topic Care Teams Apparatus Engineering Technologist Relationship Specialty Start Date End Date Vasu Edouard MD PCP - General Internal Medicine 10/17/20
--- OUTSIDE RECORDS SUMMARY | 2024-10-14 14:07 | XMS_ITS | Encounter Summary ---
Author Organization [facility] Address [address] [place] [address] Care Team Providers Care Compensation Director Name Role Phone Vasu Edouard MD Primary Care Provider [phone] Vasu Edouard MD Primary Care Provider [phone] [facility], Pcp Primary Care Provider Unavailabl e Encounter Details Date Type Department Care Team Description 09/01/2017 Orders Only Medical Records [address] [place] [address] Carolina Walton MD [address] [place] [address] [phone] Social History Tobacco Use Types Packs/Day Years [...] on file documented as of this encounter Procedures Procedure Name Priority Date/Time Associated Diagnosis Comments OUTSIDE PATHOLOGY Routine 08/27/2017 documented in this encounter Results * OUTSIDE PATHOLOGY (08/27/2017) Carolina Walton MD OUTSIDE LAB documented in this encounter Visit Diagnoses Not on filedocumented in this encounter Care Teams Compensation Director Relationship Specialty Start Date End Date Vasu Edouard MD [address] [place] [address] PCP - General Internal Medicine 03/23/20 06/22/24 Vasu Edouard MD [address] [place] [address] PCP - General 04/19/15 03/22/[address] [address] PCP - General Internal Medicine 06/23/24 documented as of this encounter
--- OUTSIDE RECORDS SUMMARY | 2024-10-14 14:07 | XMS_ITS | Encounter Summary ---
Author Organization [facility]ly [facility] Address [address] [place] [address] Care Team Providers Care Crisis Specialist Name Role Phone Vasu Edouard MD Primary Care Provider [phone] [facility], Pcp Primary Care Provider Unavailabl e Encounter Details Date Type Department Care Team Description 05/15/2020 Orders Only Medical Records [address] [place] [id number] Heike Whitten PA Social History Tobacco Use [...] Name Priority Date/Time Associated Diagnosis Comments OUTSIDE ECHO Routine 05/10/2020 documented in this encounter Results * OUTSIDE ECHO (05/10/2020) Heike ANDRES CARDIOLOGY documented in this encounter Visit Diagnoses Not on filedocumented in this encounter Care Teams Crisis Specialist Relationship Specialty Start Date End Date Vasu Edouard MD [address] [place], [place] [phone] PCP - General Internal Medicine 03/23/20 06/22/24 [facility], Pcp [address] [place] [id number] PCP - General Internal Medicine 06/23/24 documented as of this encounter
--- OUTSIDE RECORDS SUMMARY | 2024-10-14 14:07 | XMS_ITS | Encounter Summary ---
Author Organization [facility] Address [address] [place] [address] Care Team Providers Care Naval Aircrewman Tactical Helicopter Name Role Phone Vasu Edouard MD Primary Care Provider [phone] Vasu Edouard MD Primary Care Provider [phone] [facility], [facility] Primary Care Provider Unavailabl e Reason for Visit * Reason Onset Date Comments Epitaxial Reactor Operator Feedback 09/10/2017 radiation oncolo gy Encounter Details Date Type Department Care Team Description 09/10/[address] [id number] Wild Smart MD Epitaxial Reactor Operator Feedback (radiation oncology) Social History Tobacco Use Types Packs/Day Years [...] encounter Miscellaneous Notes * Telephone Encounter - Aminta Call M.A. - 09/16/2017 10:01 AM EST Spoke to office and they stated they where not call for appt til 12/28 * Telephone Encounter - Aminta Call M.A. - 09/15/2017 4:26 PM EST Called office is closed will try tomorrow * Telephone Encounter - Carolina Walton MD - 09/15/2017 12:58 PM EST Please contact [facility] to have this appointment moved up. Patient's breast cancer surgery was 08-27-17. Needs post-operative radiation. Thanks. * Telephone Encounter - Ayah Lang - 09/10/2017 9:[address] Walton, You referred patient to see Radiation Oncology within a 2 week priority, but the soonest I could schedule the patient for is October 01, 2017 at 8am. If you feel the patient needs to be seen sooner please call and speak with Dr Emely Martinez at [phone]. If appointment is acceptable please document and close encounter. A letter has been mailed to the patient with the appointment information. If the appointment information changes please have clinical staff contact the patient with new the appointment information. Thank you, Ayah Referrals [facility] Referrals Department documented in this encounter Plan of Treatment Not on file documented as of this encounter Visit Diagnoses Not on filedocumented in this encounter Care Teams Naval Aircrewman Tactical Helicopter Relationship Specialty Start Date End Date Vasu Edouard MD [address] [place] [address] PCP - General Internal Medicine 03/23/20 06/22/24 Vasu Edouard MD [address] [place] [address] PCP - General 04/19/15 03/22/[address] [address] PCP - General Internal Medicine 06/23/24 documented as of this encounter
--- OUTSIDE RECORDS SUMMARY | 2024-10-14 14:07 | XMS_ITS | Encounter Summary ---
Author Organization [facility] Address [address] [place] [address] Care Team Providers Care Transcription Typist Name Role Phone Vasu Edouard MD Primary Care Provider [facility], Pcp Primary Care Provider Unavailabl e Encounter Details Date Type Department Care Team Description 02/03/2022 Refill Adult Medicine [address] [phone] Vasu Edouard MD [address] [place] [address] [phone] Social History Tobacco Use Types Packs/Day Years [...] encounter Miscellaneous Notes * Telephone Encounter - Nereida Saeed - 02/03/2022 9:58 AM EDT Luz 01/21/21 Ov 02/28/22 Lab Results Component Value Date NA 138 01/16/2021 K 4.3 01/16/2021 CO2 29 01/16/2021 CL 104 01/16/2021 BUN 15 01/16/2021 CREAT 0.85 01/16/2021 GLU 88 01/16/2021 CA 10.1 01/16/2021 GFR > 60 01/16/2021 Lab Results Component Value Date TSH 0.06 07/04/2021 * Telephone Encounter - Mago Murcia - 02/03/2022 7:46 AM EDT Patient would like script to be: E-PRESCRIBED/FAXED TO PHARMACY WHEN WAS THE PATIENT'S LAST APPOINTMENT IN ADULT MEDICINE? 01/21/21 WHEN WAS THE LAST TIME THE PATIENT SAW THEIR PCP? never Does patient have an upcoming appointment? Yes 02/28/22 (THE MEDICATION REQUESTED IS ON THE MED LIST ABOVE) All of the medications requested were on the CURRENT MEDS list Did you check the Pharmacy information above?: YES Patient wants: 30 day Is this a mail order prescription request ? NO If the refill is from a FAXED refill request what is the RX # listed on the fax? N/A Patients current insurance carrier is: Payor: [facility] / Plan: [facility] MEDICARE COMPLETE $0 [id number] / Product Type: HMO [id number] documented in this encounter Plan of Treatment Not on file documented as of this encounter Visit Diagnoses Not on filedocumented in this encounter Care Teams Transcription Typist Relationship Specialty Start Date End Date Vasu Edouard MD [address] [place] [address] PCP - General Internal Medicine 03/23/20 06/22/24 [facility], Pcp [address] [place] [address] PCP - General Internal Medicine 06/23/24 documented as of this encounter
--- OUTSIDE RECORDS SUMMARY | 2024-10-14 14:07 | XMS_ITS | Encounter Summary ---
Author Organization [facility] Address [address] [place] [address] Care Team Providers Care Composition Weatherboard Installer Name Role Phone Vasu Edouard MD Primary Care Provider [facility], Pcp Primary Care Provider Unavailabl e Reason for Visit * Reason Onset Date Comments Medication 07/29/2022 Encounter Details Date Type Department Care Team Description 07/29/2022 Refill Gastroenterology - [address] [place] [phone] Praneeth Moses MD [address] [place] [address] Medication Social History Tobacco Use Types Packs/Day Years [...] on filedocumented in this encounter Care Teams Composition Weatherboard Installer Relationship Specialty Start Date End Date Vasu Edouard MD [address] [place] [address] PCP - General Internal Medicine 03/23/20 06/22/24 [facility], Pcp [address] [place] [address] PCP - General Internal Medicine 06/23/24 documented as of this encounter
--- OUTSIDE RECORDS SUMMARY | 2024-10-14 14:07 | XMS_ITS | Encounter Summary ---
Author Organization [facility] Address [address] [place] [address] Care Team Providers Care Sailing Master Name Role Phone Vasu Edouard MD Primary Care Provider [phone] [facility], [facility] Primary Care Provider Unavailabl e Reason for Visit * Reason Comments E-prescribe Rx Request Encounter Details Date Type Department Care Team Description 02/03/2022 Refill Respiratory and Diabetes Medicaid/ACO Pharmacist [address] [place] [address] [phone] Vasu Edouard MD [address] [place] [address] [phone] E-prescribe Rx Request Social History Tobacco Use Types Packs/Day Years [...] Telephone Encounter - Nereida Saeed - 02/03/2022 9:16 AM EDT Luz 07/04/2021 Ov 02/28/22 Lab Results Component Value Date NA 138 01/16/2021 K 4.3 01/16/2021 CO2 29 01/16/2021 CL 104 01/16/2021 BUN 15 01/16/2021 CREAT 0.85 01/16/2021 GLU 88 01/16/2021 CA 10.1 01/16/2021 GFR > 60 01/16/2021 * Telephone Encounter - Heike Michelle - 02/03/2022 8:32 AM EDT Patient would like script to be: E-PRESCRIBED/FAXED TO PHARMACY WHEN WAS THE PATIENT'S LAST APPOINTMENT IN ADULT MEDICINE? 07/04/21 WHEN WAS THE LAST TIME THE PATIENT SAW THEIR PCP? 04/29/11 Does patient have an upcoming appointment? Yes [...] N/A Patients current insurance carrier is: Payor: [facility] / Plan: [facility] MEDICARE COMPLETE $0 [id number] / Product Type: HMO [id number] * Telephone Encounter - Eleanor Barker - 02/03/2022 8:31 AM EDT Patient would like script to be: E-PRESCRIBED/FAXED TO PHARMACY ?? WHEN WAS THE PATIENT'S LAST APPOINTMENT IN ADULT MEDICINE? 07/04/21 ?? WHEN WAS THE LAST TIME THE PATIENT SAW THEIR PCP? 04/29/11 ?? Does patient have an upcoming appointment? Yes 02/28/22 ?? (THE MEDICATION REQUESTED IS ON THE MED LIST ABOVE) All of the medications requested were on the CURRENT MEDS list ?? Did you check the Pharmacy information above?: YES ?? Patient wants: 90 -day supply ?? Is this a mail order prescription request ? YES ?? If the refill is from a FAXED refill request what is the RX # listed on the fax? N/A ?? Patients current insurance carrier is: Payor: [employer] / Plan: [facility] MEDICARE COMPLETE $0 [id number] / Product Type: HMO [id number] ?? 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
--- OUTSIDE RECORDS SUMMARY | 2024-10-14 14:07 | XMS_ITS | Encounter Summary ---
Author Organization [facility] Address [address] [facility] [address] Care Team Providers Care Rn Womens Health Name Role Phone Vasu Edouard MD Primary Care Provider [phone] [facility], Pcp Primary Care Provider Unavailabl e Encounter Details Date Type Department Care Team Description 05/22/2023 Orders Only Medical Records [address] [place] [address] Jonh Bean MD Social History Tobacco Use Types Packs/Day [...] Name Priority Date/Time Associated Diagnosis Comments OUTSIDE BONE DENSITY Routine 05/11/2023 documented in this encounter Results * OUTSIDE BONE DENSITY (05/11/2023) Jonh Bean MD RADIOLOGY documented in this encounter Visit Diagnoses Not on filedocumented in this encounter Care Teams Rn Womens Health Relationship Specialty Start Date End Date Vasu Edouard MD [address] [place] [address] PCP - General Internal Medicine 03/23/20 06/22/24 [facility], Pcp [address] [place] [address] PCP - General Internal Medicine 06/23/24 documented as of this encounter
--- OUTSIDE RECORDS SUMMARY | 2024-10-14 14:07 | XMS_ITS | Clinical Summary ---
Author Organization [facility] Address [address] [place] [address] Phone Care Team Providers Care Entry Processor Name Role Phone Vasu Edouard MD Primary Care Provider [phone] Allergies Active Allergy Reactions Criticality Noted Date Comments Penicillins 02/22/2020 Medications Medication Sig Dispensed Refills Start Date End Date Status atenoloL (TENORMIN) 25 mg tablet Take 1 tablet (25 mg total) by mouth daily. Active cholecalciferol (VITAMIN D-3) 25 mcg (1,000 unit) tablet Take 1 tablet (1,000 Units total) by mouth daily. Active fluocinolone (SYNALAR) 0.025 % ointment Apply topically 2 (two) times a day. Active insulin glargine (LANTUS) 100 unit/mL injection Inject under the skin every night at bedtime. Active INSULIN LISPRO SUBQ Inject under the skin 3 (three) times a day before meals. Active letrozole (FEMARA) 2.5 mg tablet TAKE 1 TABLET BY MOUTH DAILY 02/04/2024 Active levothyroxine (SYNTHROID, LEVOTHROID) 100 mcg tablet Take 1 tablet (100 mcg total) by mouth every morning on an empty stomach. Active losartan (COZAAR) 25 mg tablet Take 1 tablet (25 mg total) by mouth daily. Active naproxen (NAPROSYN) 500 mg tablet Take 1 tablet (500 mg total) by mouth 2 (two) times a day with meals. Active Immunizations Name Administration Dates Next Due Pfizer SARS-CoV-2 COVID-19, mRNA, LNP-S, preservative free 12/22/2021,11/15/2020,10/25/2020 Surgical History Surgery Date Site/Laterality Comments OTHER SURGICAL HISTORY PROCEDURE: OH LIG/TRNSXJ FLP TUBE ABDL/VAG APPR UNI/BI LUMBAR LAMINECTOMY about 2004 PROCEDURE: HISTORICAL LUMB LAMINECTOMY; COMMENT: Dr. Faustin CATARACT EXTRACTION PROCEDURE: HISTORICAL CATARACT REMOVAL; COMMENT: bilateral COLONOSCOPY 01/29/10 PROCEDURE: HISTORICAL COLONOSCOPY; COMMENT: normal. Repeat in ten years EYE SURGERY PROCEDURE: HISTORICAL EYE SURGERY; COMMENT: bilateral vitrectomy MULTIPLE TOOTH EXTRACTIONS PROCEDURE: HISTORICAL DENTAL EXTRACTION BREAST BIOPSY 2016 Left PROCEDURE: BX BREAST; PERC NEEDLE CORE W/IMAG GUID BREAST LUMPECTOMY 08/2017 Left PROCEDURE: HISTORICAL BREAST LUMPECTOMY Medical History Medical History Date Comments Unspecified hypothyroidism 08/28/2005 DX:Un specified hypothyroidism Paroxysmal supraventricular tachycardia (CMS/HCC) 08/28/2005 DX:Paroxysmal supraventricul ar tachycardia (HCC) Type I (juvenile type) diabe tiffany mellitus without mention of complication, not stated as uncontrolled 08/28/2005 DX:Type I (juvenile type) di abetes mellitus without mention of complication, not stated as uncontrolled Backache, unspecified 08/28/2005 DX:Backach e, unspecified Diabetic retinopathy (CMS/HCC) 02/09/2009 D X:Diabetic retinopathy (HCC) Heel spur 07/20/2015 DX:Heel spur Malignant neoplasm of left b reast in female, estrogen receptor positive (CMS/HCC) 08/12/2017 DX:Malignant neoplasm of lef t breast in female, estrogen receptor positive (HCC) Family History Medical History Relation Name Comments Uterine cancer Aunt at 62; m aternal aunt Diabetes Brother type 1 No Known Problems Daughter Other: unknown Father no informatio n Arthritis Mother Stroke Mother Breast cancer Sister 1 50's unilateral Diabetes Sister 2 type 1 Other: brain tumor Sister 3 GBM Colon cancer Neg Hx Ovarian cancer Neg Hx Pancreatic cancer Neg Hx Prostate cancer Neg Hx Relation Name Status Comments Aunt Brother Alive Daughter Alive Father Mother Alive Sister 1 50's Alive Sister 2 Alive Sister 3 Alive Social History Tobacco Use Types Packs/Day Years Used Date Smoking Tobacco: Former Cigarettes Q uit: 09/14/1984 Smokeless Tobacco: Never Alcohol Use Standard Drinks/Week Comments Not Currently 0 (1 standard drink = 0.6 oz pur e alcohol) Sex and Gender Information Value Date Recorded Sex Assigned at Not on file Gender Identity Not on file Sexual Orientation Not on file Obstetrics History Last Filed Vital Signs Vital Sign Reading Time Taken Comments Blood Pressure 125/71 11/10/2023 4:19 PM EST Pulse 82 11/10/2023 4:19 PM EST Temperature - - Respiratory Rate - - Oxygen Saturation - - Inhaled Oxygen Concentration - - Weight 68.9 kg (152 lb) 11/10/2023 4:19 PM EST Height 160 cm (5' 3 ) 11/10/2023 4:19 PM EST Body Mass Index 26.93 11/10/2023 4:19 PM EST Plan of Treatment Health Maintenance Due Date Last Done Comments Diabetes: Annual GFR (Glomerular Filtration Rate) 1955 Diabetes: Annual Foot Exam 1965 Diabetes: Annual Retina Eye Exam 1965 Cervical Cancer Screening: HPV 1976 RSV Immunization Patients 60+ Years Old (1 - Risk 60-74 years 1-dose series) 2015 Cholesterol Screening (Lipid Panel) 08/23/2022 Colorectal Cancer Screening: Colonoscopy 08/23/2022 Depression Screening 08/23/2022 Falls Risk Assessment 08/23/2022 Hepatitis C Screening 08/23/2022 Medicare Annual Wellness Visit 08/23/2022 Social Influencers of Health Screening 08/23/2022 Hypertension/CHF/CAD Annual BMP Blood Test 08/24/2022 Diabetes: Annual Urine Albumin-Creatinine Ratio (uACR) 08/29/2022 Diabetes: Blood Sugar Control Test (HGBA1C) 08/29/2022 Pneumococcal Vaccine: 65+ Years (3 of 3 - PPSV23 or PCV20) 02/28/2023 02/28/2022, 07/31/2008 COVID-19 Vaccine ( season) 2024 12/22/2021, 06/25/2021, 11/15/2020, Additional history exists Influenza Vaccine (#1) 2024 2, 07/04/2021, 05/23/2020, Additional history exists Breast Cancer Screening 08/13/2025 08/13/20 23, 08/06/2022, 08/05/2021, Additional history exists DTaP,Tdap,and Td Vaccines (3 - Td or Tdap) 08/17/2029 08/17/2019, 05/10/2008 Osteoporosis Screening (Bone Density Screening) 05/11/2033 05/11/2023, 05/14/2020, 11/11/2018, Additional history exists Zoster Vaccines Completed 08/31/2020, 04/15, 01/01/2017 HIB Vaccines Aged Out No longer eligi ble based on patient's age to complete this topic HPV Vaccines Aged Out No longer eligi ble based on patient's age to complete this topic Hepatitis A Vaccines Aged Out No long er eligible based on patient's age to complete this topic Hepatitis B Vaccines Aged Out No long er eligible based on patient's age to complete this topic IPV Vaccines Aged Out No longer eligi ble based on patient's age to complete this topic MMR Vaccines Aged Out No longer eligi ble based on patient's age to complete this topic Meningococcal ACWY Vaccine Aged Out N o longer eligible based on patient's age to complete this topic RSV Immunization Patients Under 20 months Aged Out No longer eligible based on patient's age to complete this topic Varicella Vaccines Aged Out No longer eligible based on patient's age to complete this topic Procedures Procedure Name Priority Date/Time Associated Diagnosis Comments SCREENING MAMMOGRAPHY BI 2-VIEW BREAST INC CAD Routine 08/13/2023 10:12 AM EST Personal history of malignant neoplasm of breast Encounter for screening mammogram for malignant neoplasm of breast BERT DEXA AXIAL SKELETON Routine 05/11/2023 10:09 AM EDT Asymptomatic menopausal state from Last 3 Months or Most Recently Relevant to Health Maintenance Results * SCREENING MAMMOGRAPHY BI 2-VIEW BREAST INC CAD (08/13/2023 10:12 AM EST) Anatomical Region Laterality Modality Radiographic Marilee ging 08/06/2022 9:01 AM EST Narrative 08/15/2023 4:11 PM EST This is a summary report. The complete report is available in the patient's medical record. If you cannot access the medical record, please contact the sending organization for a detailed fax or copy. Full field digital screening tomosynthesis mammography, reviewed with CAD and compared to previous. The breast tissue is heterogeneously dense, limiting sensitivity. No suspicious mass, architectural distortion or suspicious calcifications are identified. ??There are stable postlumpectomy changes in the left breast. IMPRESSION: : Dense breast tissue, limiting the sensitivity of mammography. No mammographic evidence of malignancy. ??BI-RADS 2, benign findings. 5 year breast cancer risk assessment N/A Lifetime breast cancer risk assessment N/A Breast cancer risk category Moderate (15% - 20%) Procedure Note Christen Mcmillan MD - 10/20/2023 This is a summary report. The complete report is available in thepatient's medical record. If you cannot access the medical record, pleasecontact the sending organization for a detailed fax or copy. Full field digital screening tomosynthesis mammography, reviewed with CADand compared to previous. The breast tissue is heterogeneously dense,limiting sensitivity. No suspicious mass, architectural distortion orsuspicious calcifications are identified. There are stable postlumpectomychanges in the left breast. IMPRESSION: : Dense breast tissue, limiting the sensitivity of mammography. Nomammographic evidence of malignancy. BI-RADS 2, benign findings. 5 year breast cancer risk assessment N/A Lifetime breast cancer risk assessment N/A Breast cancer risk category Moderate (15% - 20%) Winnie Lovelace MD IMG XR PROCEDURES * BERT DEXA AXIAL SKELETON (05/11/2023 10:09 AM EDT) Anatomical Region Laterality Modality Mammography 05/11/2023 9:07 AM EDT Narrative 05/11/2023 10:09 AM EDT [facility] Diagnostic Imaging Department [address] [place] [address] Patient: ??KYLAH OJEDA ?/Age/Sex: 1955 - Unit#: ??[id number] ? Location/Status: ??SPDIMAM/REG CLI ? Mnemonic/Ordering Site: ??MAMDEXAAX/SPMAM Ordering Physician: ??JONH BEAN MD Bert Dexa Axial Skeleton - 05/11/23942 Report Status:Signed HISTORY: ??The patient is a 68-year-old postmenopausal female with clinical concern for metabolic bone disease. FINDINGS: ??Dual energy x-ray absorptiometry of the lumbar spine and femurs is performed. The mean bone mineral density at L1-3 is 1.247 gm/cm2 which is 107% of that of young normals and 128% of that of age matched controls. This yields a T-score of 0.6 and a Z-score of 2.2 and there is therefore no evidence of osteoporosis or osteopenia here. The mean bone mineral density of the femurs bilaterally is 0.943 gm/cm2 which is 94% of that of young normals and 112% of that of age matched controls. ??This yields a T-score of -0.5 and a Z-score of 0.8 and there is therefore no evidence of osteoporosis or osteopenia here. IMPRESSION: 1. There is no evidence of osteoporosis or osteopenia. 2. FRAX analysis yields a 10-year probability of major osteoporotic fracture of 17.1% and a 10-year probability of hip fracture of 1.1%. Code 51818 Dictating Physician: ??KIAN PERRY MD Electronically Signed by: ??KIAN PERRY MD Dic Date/Time: ??05/11/23 1007 Sign date/Time: ??05/11/23 1009 Procedure Note Kian Perry MD - 10/20/2023 [facility] Diagnostic Imaging Department [address] [place], [place] [id number] Patient: KYLAH OJEDA Ayana /Age/Sex: 1955 68 - F Unit#: [id number] Location/Status: SPDIMAM/REG CLI Mnemonic/Ordering Site: MAMDEXAAX/SPMAM Ordering Physician: JONH BEAN MD Bert Dexa Axial Skeleton - 05/11/23942 Report Status:Signed HISTORY: The patient is a 68-year-old postmenopausal female withclinical concern for metabolic bone disease. FINDINGS: Dual energy x-ray absorptiometry of the lumbar spine and femursis performed. The mean bone mineral density at L1-3 is 1.247 gm/cm2 which is107% of that of young normals and 128% of that of age matched controls. Thisyields a T-score of 0.6 and a Z-score of 2.2 and there is therefore no evidenceof osteoporosis or osteopenia here. The mean bone mineral density of the femurs bilaterally is 0.943 gm/fy1lvpza is 94% of that of young normals and 112% of that of age matched controls.This yields a T-score of -0.5 and a Z-score of 0.8 and there is therefore noevidence of osteoporosis or osteopenia here. IMPRESSION: 1. There is no evidence of osteoporosis or osteopenia. 2. FRAX analysis yields a 10-year probability of major osteoporoticfracture of 17.1% and a 10-year probability of hip fracture of 1.1%. Code 36619 Dictating Physician: KIAN PERRY MD Electronically Signed by: KIAN PERRY MD Dic Date/Time: 05/11/23 1007 Sign date/Time: 05/11/23 1009 Jonh Bean MD IMG BI PROCEDURES from Last 3 Months or Most Recently Relevant to Health Maintenance Care Teams Entry Processor Relationship Specialty Start Date End Date Vasu Edouard MD PCP - General Internal Medicine 04/19/15
--- OUTSIDE RECORDS SUMMARY | 2024-10-14 14:07 | XMS_ITS | Encounter Summary ---
Author Organization [facility] Address [address] [facility] [place] [address] Care Team Providers Care Medical Lab Specialist Name Role Phone Vasu Edouard MD Primary Care Provider [phone] [facility], Pcp Primary Care Provider [facility] Encounter Details Date Type Department Care Team Description 01/13/2023 Pharmacist'S Aide Report Medical Records [address] [place] [address] Jonh Bean MD Social History Tobacco Use [...] on filedocumented in this encounter Care Teams Medical Lab Specialist Relationship Specialty Start Date End Date Vasu Edouard MD [address] [place] [address] [phone] PCP - General Internal Medicine 03/23/20 06/22/24 [facility], Pcp [address] [place] [address] PCP - General Internal Medicine 06/23/24 documented as of this encounter
--- OUTSIDE RECORDS SUMMARY | 2024-10-14 14:07 | XMS_ITS | Encounter Summary ---
Author Organization [facility] Address [address] [place] [address] Care Team Providers Care Heavy Mobile Equipment Repairer Name Role Phone Vasu Edouard MD Primary Care Provider [phone] [facility], Pcp Primary Care Provider Unavailabl e Encounter Details Date Type Department Care Team Description 09/05/2021 Telephone Adult Medicine [address] [id number] Heike Butts PA-C Social History Tobacco Use Types Packs/Day Years [...] file Not on file Not on file COVID-19 Exposure Response Date Recorded In the last month, have you been in contact with someone who was confirmed or suspected to have Coronavirus / COVID-19? No / Unsure 09/03/2021 1:14 PM EST documented as of this encounter Plan of Treatment Not on file documented as of this encounter Visit Diagnoses Not on filedocumented in this encounter Care Teams Heavy Mobile Equipment Repairer Relationship Specialty Start Date End Date Vasu Edouard MD [address] [place] [address] PCP - General Internal Medicine 03/23/20 06/22/24 [facility], Pcp [address] [place] [address] MARK Avila [address] PCP - General Internal Medicine 06/23/24 documented as of this encounter
--- OUTSIDE RECORDS SUMMARY | 2024-10-14 14:07 | XMS_ITS | Encounter Summary ---
Author Organization [facility] Address [address] [place] [address] Care Team Providers Care Historic Clothing And Costume Maker Name Role Phone Vasu Edouard MD Primary Care Provider [phone] [facility], Pcp Primary Care Provider Unavailabl e Encounter Details Date Type Department Care Team Description 01/06/2023 CG Report Medical Records [address] [place] [address] Abstract, Provider Social History Tobacco Use Types [...] on filedocumented in this encounter Care Teams Historic Clothing And Costume Maker Relationship Specialty Start Date End Date Vasu Edouard MD [address] [place] [address] PCP - General Internal Medicine 03/23/20 06/22/24 [facility], Pcp [address] [place] [address] PCP - General Internal Medicine 06/23/24 documented as of this encounter
--- OUTSIDE RECORDS SUMMARY | 2024-10-14 14:07 | XMS_ITS | Encounter Summary ---
Author Organization [facility] Address [address] [place] [address] Care Team Providers Care Tool Specialist Name Role Phone Vasu Edouard MD Primary Care Provider [phone] [facility], Pcp Primary Care Provider Unavailabl e Encounter Details Date Type Department Care Team Description 06/04/2023 Orders Only Medical Records [address] [place] [address] Jonh Bean MD Social History Tobacco Use [...] on filedocumented in this encounter Care Teams Tool Specialist Relationship Specialty Start Date End Date Vasu Edouard MD [address] [place] [address] PCP - General Internal Medicine 03/23/20 06/22/24 [facility], Pcp [address] [place] [address] PCP - General Internal Medicine 06/23/24 documented as of this encounter
--- OUTSIDE RECORDS SUMMARY | 2024-10-14 14:07 | XMS_ITS | Encounter Summary ---
Author Organization [facility] Address [address] [place] [address] Care Team Providers Care Substation Electrician Supervisor Name Role Phone Vasu Edouard MD Primary Care Provider [phone] Vasu Edouard MD Primary Care Provider [phone] [facility], Pcp Primary Care Provider Unavailabl e Encounter Details Date Type Department Care Team Description 07/20/2017 Orders Only Radiology - [address] [id number] Wild Smart MD Social History Tobacco Use [...] on filedocumented in this encounter Care Teams Substation Electrician Supervisor Relationship Specialty Start Date End Date Vasu Edouard MD [address] [place] [address] PCP - General Internal Medicine 03/23/20 06/22/24 Vasu Edouard MD [address] [place] [address] PCP - General 04/19/15 03/22/20 [facility], Pcp [address] [place] [address] PCP - General Internal Medicine 06/23/24 documented as of this encounter
--- OUTSIDE RECORDS SUMMARY | 2024-10-14 14:07 | XMS_ITS | Encounter Summary ---
Author Organization [facility] Address [address] [place] [address] Care Team Providers Care Irrigation Flume Layer Name Role Phone Vasu Edouard MD Primary Care Provider [phone] [facility], Pcp Primary Care Provider Unavailabl e Encounter Details Date Type Department Care Team Description 09/09/2021 Pt. Non Urgent Medic al Question Adult Medicine [address] [phone] Heike Whitten PA Social History Tobacco Use [...] on filedocumented in this encounter Care Teams Irrigation Flume Layer Relationship Specialty Start Date End Date Vasu Edouard MD [address] [place] [address] [id number] PCP - General Internal Medicine 03/23/20 06/22/24 [facility], Pcp [address] [place] [address] PCP - General Internal Medicine 06/23/24 documented as of this encounter
--- OUTSIDE RECORDS SUMMARY | 2024-10-14 14:07 | XMS_ITS | Encounter Summary ---
Author Organization [facility] Address [address] [place] [address] Care Team Providers Care Batter Out Name Role Phone Vasu Edouard MD Primary Care Provider [phone] Vasu Edouard MD Primary Care Provider [phone] [facility], Pcp Primary Care Provider Unavailabl e Reason for Visit * Reason Onset Date Comments Testing 03/20/2020 Covid 19 Encounter Details Date Type Department Care Team Description 03/20/2020 Telephone Adult Medicine [facility] [address] [place] [address] [phone] Jennie Henley PA-C [address] [place] [address] [phone] Testing (Covid 19) Social History Tobacco Use Types Packs/Day Years [...] encounter Miscellaneous Notes * Telephone Encounter - Yesi Jensen M.A. - 03/20/2020 10:56 AM EDT Call placed to [facility]. Patient information confirmed and appointment scheduled for 03/23/20 at 1030am at [address] [place] [address]. Patient is aware of appointment and location of testing facility. Instructions for testing given verbally to patient. Orders hand faxed to [phone]--Confirmation received Will need a copy of results placed at [facility] patient for [facility] documented in this encounter Plan of Treatment Not on file documented as of this encounter Visit Diagnoses Not on filedocumented in this encounter Care Teams Batter Out Relationship Specialty Start Date End Date Vasu Edouard MD [address] [place] [address] PCP - General Internal Medicine 03/23/20 06/22/24 Vasu Edouard MD [address] [place] [address] PCP - General 04/19/15 03/22/20 [facility], Pcp [address] [place] [address] PCP - General Internal Medicine 06/23/24 documented as of this encounter
--- OUTSIDE RECORDS SUMMARY | 2024-10-14 14:07 | XMS_ITS | Encounter Summary ---
Author Organization [facility] Address [address] [place] [address] Care Team Providers Care Field Sales Agent Name Role Phone Vasu Edouard MD Primary Care Provider [phone] [facility], [facility] Primary Care Provider Unavailabl e Reason for Visit * Reason Comments E-prescribe Rx Request Encounter Details Date Type Department Care Team Description 01/23/2022 Refill Adult Medicine [address] [address] Heike Whitten PA E-prescribe Rx Request Social History Tobacco Use [...] * Telephone Encounter - Nereida Saeed - 01/23/2022 4:38 PM EDT Luz 07/04/21 Ov 02/28/22 , Lab Results Component Value Date HGBA1C 7.7 06/25/2021 MALBUR 9.3 01/16/2021 MALBCR < 6.2 01/16/2021 CHOL 141 06/25/2021 LDL 42 06/25/2021 HDL 76 06/25/2021 TRIG 115 06/25/2021 GLU 88 01/16/2021 CREAT 0.85 01/16/2021 * Telephone Encounter - Eleanor Barker - 01/23/2022 11:35 AM EDT Patient would like script to be: E-PRESCRIBED/FAXED TO PHARMACY WHEN WAS THE PATIENT'S LAST APPOINTMENT IN ADULT MEDICINE? 07/04/21 WHEN WAS THE LAST TIME THE PATIENT SAW THEIR PCP? Never seen pcp Does patient have an upcoming appointment? No[facility]. Appt due (THE MEDICATION REQUESTED IS ON THE MED [...] N/A Patients current insurance carrier is: Payor: [facility] / Plan: [facility] MEDICARE COMPLETE $0 [id number] / Product Type: HMO [id number] documented in this encounter Plan of Treatment Not on file documented as of this encounter Visit Diagnoses Not on filedocumented in this encounter Care Teams Field Sales Agent Relationship Specialty Start Date End Date Vasu Edouard MD [address] [place] [address] PCP - General Internal Medicine 03/23/20 06/22/24 [facility], Pcp [address] [place] [address] PCP - General Internal Medicine 06/23/24 documented as of this encounter
--- OUTSIDE RECORDS SUMMARY | 2024-10-14 14:07 | XMS_ITS | Encounter Summary ---
Author Organization [facility] Address [address] [place] [address] Care Team Providers Care Customs Compliance Specialist Name Role Phone Vasu Edouard MD Primary Care Provider [phone] [facility], [facility] Primary Care Provider Unavailabl e Reason for Visit * Reason Onset Date Comments E-prescribe Rx Request 03/23/2020 Encounter Details Date Type Department Care Team Description 03/23/2020 Telephone Oncology/Hematology - [address] [address] Jonh Bean MD E-prescribe Rx Request Social History Tobacco Use [...] on filedocumented in this encounter Care Teams Customs Compliance Specialist Relationship Specialty Start Date End Date Vasu Edouard MD [address] [place] [address] PCP - General Internal Medicine 03/23/20 06/22/24 [facility], Pcp [address] [place] [address] PCP - General Internal Medicine 06/23/24 documented as of this encounter
--- NOTE | 2024-10-14 14:33 | MHC.PC.OV ---
Intake Visit Reasons: AWV - see comments Intake Note: Medical wellness visit District Claims Manager Required: No Allergies Penicillins Allergy (Unknown, Verified 10/14/24 15:05) RASH Tobacco use date assessed: 10/14/24 Dental Screening Dental Screen Date: 04/12/24 HPI HPI Comments History of Present Illness Details 69-year-old female with history of type 1 diabetes, alcohol use disorder, depression, hypothyroidism, hypertension, hyperlipidemia presenting for physical exam Diabetes: Has followed with endocrinology. Notes she is stable on Lantus 30 units daily and lispro 8 units TID. Also with hypothyroid - A1C was 6.5%. Levothyroxine at 88 mcg daily BH: Has required inpatient care in past. History of etoh use, maintaining sobriety CV: On atenolol 25mg aily, lipitor 20mg daily, losartan 25mg daily. History of breast cancer -continues letrozole. Wants to see hematology to discuss coming off letrozole. Colonoscopy last year. HRA reviewed. / memory denies depression independendent ADLS Care team reviewed ROS CONSTITUTIONAL: Denies weight loss, fever and chills. HEENT: Denies changes in vision and hearing. RESPIRATORY: Denies SOB and cough. CV: Denies palpitations and CP GI: Denies abdominal pain, nausea, vomiting and diarrhea. : Denies dysuria and urinary frequency. MSK: Denies new myalgia and joint pain. SKIN: Denies rash and pruritus. NEUROLOGICAL: Denies headache PSYCHIATRIC: Denies recent changes in mood. PHYSICAL EXAM: GENERAL: Alert and oriented x 3. NAD EYES: EOMI. Anicteric. HENT: Moist mucous membranes. No scleral icterus. No cervical lymphadenopathy. LUNGS: Clear to auscultation bilaterally. CARDIOVASCULAR: Regular rate and rhythm. No murmur. No JVD. ABDOMEN: Soft, non-tender +bs EXTREMITIES: No edema. Non-tender. SKIN: No rashes or lesions. Warm. NEUROLOGIC: No focal neurological deficits. CN II-XII grossly intact PSYCHIATRIC: Cooperative. Appropriate mood and affect [facility] Medical History Tachycardia Hypothyroidism Uncontrolled type 1 diabetes mellitus with hyperglycemia Hyperlipidemia Hypertension Breast cancer Alcohol use disorder Depressive disorder Surgical History History of lumpectomy History of back surgery Family History Mother Hypertension Maternal Grandfather Diabetes Brother Diabetes Cancer Sister Diabetes Breast cancer Social History Household Members: Spouse Housing: Apartment Do you presently have visiting nurse or other home services: No Alcohol intake: former Year quit: 2021 Patient Tobacco Use Status: Former Tobacco user Tobacco use type: Cigarette Cigarette Packs Per Day: 0.5 Cigarettes Per Day: 10.0 e-Cigarette/Vaping Use: Never Used Second Hand Smoke Exposure: No service: No Current occupational status: retired Sexual orientation: Straight/Heterosexual Cognitive needs: No Hearing needs: No Vision needs: Yes Questionnaire Thrive Questionnaire Date Thrive assessed: 10/14/24 JEANIE-7 AMB Questionnaire JEANIE-7 Date JEANIE - 7 assessed: 04/12/24 Source: Developed by Drs. Hernán Quintero, Caitlin Marroquin, Jethro Thakur and colleagues, with an educational héctor from [employer]. Physical exam (Primary Care) Tobacco/Smoking Status: Tobacco use Status Tobacco use date assessed 10/14/24 10/14/24 15:05 Patient Tobacco Use Status Former Tobacco user 10/14/24 14:34 Tobacco use type Cigarette 10/14/24 14:34 e-Cigarette/Vaping Use Never Used 10/14/24 14:34 Thrive Assessment: Date of Thrive Assessment Date Thrive assessed 10/14/24 10/14/24 14:34 Coding Level of Care Code Est Pt Prev Care >65y(99321) Diagnoses Physical exam Z00.00 Uncontrolled type 1 diabetes mellitus with hyperglycemia E10.65 Malignant neoplasm of lower-inner quadrant of left breast in female, estrogen receptor positive C50.312; Z17.0 Breast location: lower inner quadrant of breast Estrogen receptor status: positive Laterality: left Patient sex: female Assessment & Plan Assessment & Plan (1) Physical exam: Code(s): Z00.00 - Encounter for general adult medical examination without abnormal findings Category: Medical Plan: Preventive measures reviewed. Chronic medical conditions, interval history, medication reviewed (2) Uncontrolled type 1 diabetes mellitus with hyperglycemia: Code(s): E10.65 - Type 1 diabetes mellitus with hyperglycemia Category: Medical Plan: stable on current medication (3) Breast cancer: Code(s): C50.919 - Malignant neoplasm of unspecified site of unspecified female breast Category: Medical Qualifiers: Breast location: lower inner quadrant of breast Estrogen receptor status: positive Laterality: left Patient sex: female Qualified Code(s): C50.312 - Malignant neoplasm of lower-inner quadrant of left female breast; Z17.0 - Estrogen receptor positive status [ER+] Plan: continue letrozole pending hematology consult Orders: Orders TSH reflex Free T4 10/14/24 E06.3 - Autoimmune thyroiditis, E10.649 - Type 1 diabetes mellitus with hypoglycemia without coma, F32.A - Depression, unspecified Comprehensive Met. Panel 10/14/24 E06.3 - Autoimmune thyroiditis, E10.649 - Type 1 diabetes mellitus with hypoglycemia without coma, F32.A - Depression, unspecified Vitamin B12 and Folate 10/14/24 E53.8 - Deficiency of other specified B group vitamins Hemoglobin A1c 10/14/24 E06.3 - Autoimmune thyroiditis, E10.649 - Type 1 diabetes mellitus with hypoglycemia without coma, F32.A - Depression, unspecified Complete Blood Count Auto Diff 10/14/24 E06.3 - Autoimmune thyroiditis, E10.649 - Type 1 diabetes mellitus with hypoglycemia without coma, F32.A - Depression, unspecified Microalbumin, Random (w Creat) 10/14/24 E06.3 - Autoimmune thyroiditis, E10.649 - Type 1 diabetes mellitus with hypoglycemia without coma, F32.A - Depression, unspecified Lipid Panel 10/14/24 E06.3 - Autoimmune thyroiditis, E10.649 - Type 1 diabetes mellitus with hypoglycemia without coma, F32.A - Depression, unspecified Referrals Hematology & Oncology Referral C50.312 - Malignant neoplasm of lower-inner quadrant of left female breast, Z17.0 - Estrogen receptor positive status [ER+] Medications: New fluocinolone 0.025% 1 appl topical BID 15 grams 3RF baclofen 5 mg PO BID PRN 180 tabs 3RF muscle spasm oxycodone Partial Fill upon patient request. 5 mg PO QID 7 days PRN 28 tabs 0RF pain oxycodone Partial Fill upon patient request. 5 mg PO QID PRN 28 tabs 0RF pain 7 days Refilled FreeStyle Brianne 2 Sensor (flash glucose sensor) As directed every 14 days VIOLETTA 6 ea 3RF NS E10.65 - Type 1 diabetes mellitus with hyperglycemia
== END 2024-10-14 15:27 | disposition home or self-care (01) ==
PROVIDERS: PCP Family Medicine; Visit Provider Internal Medicine
DX: Z00.00 Encounter for general adult medical examination without abnormal findings (principal); E10.65 Type 1 diabetes mellitus with hyperglycemia; C50.312 Malignant neoplasm of lower-inner quadrant of left female breast; Z17.0 Estrogen receptor positive status [ER+]

== ENCOUNTER → 2024-10-14 14:04 | Outpatient (BNVA) | payer OTHER, SELFPAY | PROVIDERS: PCP Family Medicine; Visit Provider Internal Medicine ==

== ENCOUNTER 2024-10-14 15:34 | Outpatient (REF) | payer OTHER, SELFPAY ==
--- OUTSIDE RECORDS SUMMARY | 2024-10-14 15:36 | XMS_ITS | Clinical Summary ---
Author Organization [facility] Address [address] [place] [address] Phone Care Team Providers Care Tailor'S Aide Name Role Phone Vasu Edouard MD Primary Care Provider [phone] Allergies Active Allergy Reactions Criticality Noted Date [...] Date Site/Laterality Comments OTHER SURGICAL HISTORY PROCEDURE: WA LIG/TRNSXJ FLP TUBE ABDL/VAG APPR UNI/BI LUMBAR [...] AM EDT Narrative 05/11/2023 10:09 AM EDT [facility] Diagnostic Imaging Department [address] [place] [address] Patient: ??KYLAH OJEDA ?/Age/Sex: 1955 - Unit#: ??[id number] ? Location/Status: ??SPDIMAM/REG CLI ? Mnemonic/Ordering Site: [...] probability of hip fracture of 1.1%. Code 13230 Dictating Physician: ??KIAN PERRY MD Electronically Signed by: ??KIAN PERRY MD Dic Date/Time: ??05/11/23 1007 Sign date/Time: ??05/11/23 1009 Procedure Note Kian Perry MD - 10/20/2023 [facility] Diagnostic Imaging Department [address] [place], [place] [id number] Patient: KYLAH OJEDA Ayana /Age/Sex: 1955 68 - F Unit#: [id number] Location/Status: SPDIMAM/REG CLI Mnemonic/Ordering Site: MAMDEXAAX/SPMAM Ordering [...] density of the femurs bilaterally is 0.943 gm/nc3lcnfp is 94% of that of young normals [...] probability of hip fracture of 1.1%. Code 26184 Dictating Physician: KIAN PERRY MD Electronically Signed by: KIAN PERRY MD Dic Date/Time: 05/11/23 1007 Sign date/Time: 05/11/23 1009 Jonh Bean MD IMG BI PROCEDURES from Last 3 Months or Most Recently Relevant to Health Maintenance Care Teams Tailor'S Aide Relationship Specialty Start Date End Date Vasu Edouard MD PCP - General Internal Medicine 04/19/15
--- OUTSIDE RECORDS SUMMARY | 2024-10-14 15:36 | XMS_ITS | Clinical Summary ---
Author Organization [facility] Address [address] [place] [address] Care Team Providers Care Account Manager B2B Name Role Phone Vasu Edouard MD Primary Care Provider [phone] Allergies Active Allergy Reactions Criticality Noted Date [...] age to complete this topic Care Teams Account Manager B2B Relationship Specialty Start Date End Date Vasu Edouard MD PCP - General Internal Medicine 10/17/20
[2024-10-14 16:56] LABS: MANUAL DIFF FLAG NO
[2024-10-14 17:00] LABS: Basophils Absolute Auto 0.1 X10*3/uL (0.0-0.2); Basophils Percent Auto 1.1 % (0-2); Eosinophils Absolute Auto 0.2 X10*3/uL (0.0-0.4); Eosinophils Percent Auto 2.3 % (0-4); Hematocrit 35.5 % (37.0-47.0); Hemoglobin 11.8 g/dl (12.0-16.0); Imm Gran Abs Auto 0.01 X10*3/uL (0.00-0.03); Imm Gran Pct Auto 0.2 % (0.0-0.4); Lymphocytes Absolute Auto 1.8 X10*3/uL (1.2-4.9); Lymphocytes Percent Auto 26.8 % (20-40); Mean Corpuscular HGB Conc 33.2 g/dl (31.0-35.0); Mean Corpuscular Volume 81.2 fL (80.0-98.0); Mean Platelet Volume 10.2 fL (9.4-12.3); Monocytes Absolute Auto 0.6 X10*3/uL (0.1-1.2); Monocytes Percent Auto 9.5 % (2-11); Neutrophils Percent Auto 60.1 % (45-73); Platelet Count 331 X10*3/uL (160-400); Red Blood Count 4.37 X10*6/uL (4.20-5.50); Red Cell Distribution Width 13.2 % (11.0-16.0); White Blood Count 6.6 X10*3/uL (4.8-10.8)
[2024-10-14 17:30] LABS: Creatinine Urine 98.32 mg/dL; Microalbum/Creatinine Ratio Ur 20.3 ug/mg cr (<30)
[2024-10-14 17:33] LABS: Estimated Average Glucose 163 mg/dL; Hemoglobin A1C 174.9971 umol/L; Hemoglobin A1c % 7.3 % (<6.0); Total Hemoglobin (HGBA1C) 3130.8805 umol/L
[2024-10-14 18:02] LABS: Alanine Aminotransferase 15 U/L (0-31); Anion Gap 13 (12-20); Aspartate Amino Transferase 24 U/L (5-31); Bilirubin Total 0.5 mg/dL (0.0-1.0); Blood Urea Nitrogen 20 mg/dL (9-16); Calcium 9.7 mg/dL (8.4-10.2); Carbon Dioxide 24 mmol/L (22-29); Chloride 107 mmol/L (96-108); Cholesterol 123 mg/dL (<200); Estimated Glomerular Filt Rate > 60; Glucose Random 229 mg/dL (60-115); HDL Cholesterol 53 mg/dL (>40); LDL Cholesterol Calculated 55 mg/dL (<100); Potassium 4.2 mmol/L (3.3-5.1); Sodium 140 mmol/L (135-145); Total Protein 7.4 g/dL (6.5-8.0); Triglycerides 78 mg/dL (<150)
[2024-10-14 18:10] LABS: Alkaline Phosphatase 88 U/L (39-117); TSH reflex Free T4 0.17 uIU/mL (0.32-4.0)
[2024-10-14 19:11] LABS: Folate 13.5 ng/mL (> or = 4.0); Vitamin B12 > 2000 pg/mL (200-900)
[2024-10-14 19:36] LABS: Free T4 (Free Thyroxine) 1.48 ng/dL (0.71-1.85)
== END 2024-10-14 15:35 | disposition home or self-care (01) ==
LOC: HO.WFDLDS 15:34
PROVIDERS: Visit Provider Internal Medicine
DX: E10.649 Type 1 diabetes mellitus with hypoglycemia without coma (principal); E06.3 Autoimmune thyroiditis; F32.A Depression, unspecified; E53.8 Deficiency of other specified B group vitamins
CPT/HCPCS: 36415; 80053; 80061; 82043; 82570; 82607; 82746; 83036; 84439; 84443; 85025

== ENCOUNTER → 2024-11-09 13:05 | Outpatient (BNV) | payer OTHER, SELFPAY | PROVIDERS: PCP Internal Medicine; Referring Provider Internal Medicine; Visit Provider Internal Medicine | DX: Z85.3 Personal history of malignant neoplasm of breast (principal) | CPT/HCPCS: 99204 ==

== ENCOUNTER 2025-03-27 15:31 | Outpatient (AMB) | payer OTHER, SELFPAY ==
--- NOTE | 2025-03-27 15:39 | MHC.PC.OV ---
Vital Signs 03/27/25 15:42 Height 5 ft 3 in BP 134/56 L Blood Pressure Location Rt brachial Position Sitting Respiration 14 Pulse 75 Pulse Source Pulse Oximeter Pulse Oximetry (%) 98 Oxygen Delivery Method Room Air Intake Visit Reasons: F/U - see comments Intake Note: Follow up Preventive Maintenance Coordinator Required: No Allergies Penicillins Allergy (Unknown, Verified 03/27/25 15:40) RASH Medication List - Last Reviewed 03/27/25 by Nayeli Lincoln CMA aspirin (Adult Aspirin Regimen) 81 mg PO DAILY atenolol 12.5 mg PO DAILY atorvastatin 20 mg PO BEDTIME cholecalciferol (vitamin D3) 25 mcg PO DAILY 30 days cyanocobalamin (vitamin B-12) (Vitamin B-12) 1,000 mcg PO DAILY 30 days flash glucose scanning reader (FreeStyle Brianne 2 Ashton) As directed fluocinolone 0.025% 1 appl topical BID FreeStyle Brianne 2 Plus Sensor (blood-glucose sensor) every 15 days NS FreeStyle Brianne 2 Sensor (flash glucose sensor) As directed every 14 days VIOLETTA NS insulin glargine (Lantus Solostar U-100 Insulin) 30 units subcut DAILY insulin lispro (Humalog KwikPen (U-100) Insulin) 8 units (0.08 mL) subcut TID levothyroxine 88 mcg PO DAILY losartan 25 mg PO DAILY naproxen 500 mg PO BID PRN oxycodone 5 mg PO QID PRN 28 days Tobacco use date assessed: 03/27/25 Dental Screening Dental Screen Date: 04/12/24 HPI HPI Comments History of Present Illness Details 69-year-old female with history of type 1 diabetes, alcohol use disorder, depression, hypothyroidism, hypertension, hyperlipidemia presenting for follow up Diabetes: On Lantus 30 units daily and lispro 8 units TID. Also with hypothyroid - A1C was 6.5%. Levothyroxine at 88 mcg daily BH: Has required inpatient care in past. History of etoh use, maintaining sobriety. is getting increasing dementia which is stressful CV: On atenolol 25mg daily, lipitor 20mg daily, losartan 25mg daily. History of breast cancer -off letrozole. Saw Dr Juve High UTD ROS CONSTITUTIONAL: Denies weight loss, fever and chills. HEENT: Denies changes in vision and hearing. RESPIRATORY: Denies SOB and cough. CV: Denies palpitations and CP GI: Denies abdominal pain, nausea, vomiting and diarrhea. : Denies dysuria and urinary frequency. MSK: Denies new myalgia and joint pain. SKIN: Denies rash and pruritus. NEUROLOGICAL: Denies headache PSYCHIATRIC: Denies recent changes in mood. PHYSICAL EXAM: GENERAL: Alert and oriented x 3. NAD EYES: EOMI. Anicteric. HENT: Moist mucous membranes. No scleral icterus. No cervical lymphadenopathy. LUNGS: Clear to auscultation bilaterally. CARDIOVASCULAR: Regular rate and rhythm. No murmur. No JVD. ABDOMEN: Soft, non-tender +bs EXTREMITIES: No edema. Non-tender. SKIN: No rashes or lesions. Warm. NEUROLOGIC: No focal neurological deficits. CN II-XII grossly intact PSYCHIATRIC: Cooperative. Appropriate mood and affect [facility] Medical History Tachycardia Hypothyroidism Uncontrolled type 1 diabetes mellitus with hyperglycemia Hyperlipidemia Hypertension Breast cancer Alcohol use disorder Depressive disorder Surgical History History of lumpectomy History of back surgery Family History Mother Hypertension Maternal Grandfather Diabetes Brother Diabetes Cancer Sister Diabetes Breast cancer Brain cancer Social History (Updated 03/27/25 @ 15:58 by Nayeli Lincoln CMA) Household Members: Spouse Housing: Apartment Do you presently have visiting nurse or other home services: No 75 years or older and lives alone: No Alcohol intake: former Year quit: 2021 Patient Tobacco Use Status: Former Tobacco user Tobacco use type: Cigarette Cigarette Packs Per Day: 0.5 e-Cigarette/Vaping Use: Never Used Second Hand Smoke Exposure: No Use of substances other than those prescribed or required for medical reasons: No service: No Current occupational status: retired Sexual orientation: Straight/Heterosexual Cognitive needs: No Hearing needs: No Vision needs: Yes Questionnaire PHQ-9 Over the last 2 weeks, how often have you been bothered by any of the following problems? 1. Little interest or pleasure in doing things: several days 2. Feeling down, depressed, or hopeless: several days 3. Trouble falling or staying asleep, or sleeping too much: more than half the days 4. Feeling tired or having little energy: nearly every day 5. Poor appetite or overeating: not at all 6. Feeling bad about yourself - or that you are a failure or have let yourself or your family down: several days 7. Trouble concentrating on things, such as reading the newspaper or watching television: several days 8. Moving or speaking so slowly that other people could have noticed. Or the opposite - being so fidgety or restless that you have been moving around a lot more than usual: not at all 9. Thoughts that you would be better off or of hurting yourself in some way: not at all Total score: 9 Depression Screening Interpretation: Positive Depression Screening Follow-up: Existing condition Depression Screening Done: Yes 85725 - PHQ-9 Billing: Yes Source: Developed by Drs. Hernán Quintero, Caitlin Marroquin, Jethro Thakur and colleagues, with an educational héctor from [employer]. Thrive Questionnaire Date Thrive assessed: 10/14/24 I am a: Patient What is your living situation today?: I have a steady place to live Within the past 12 months, did the food you bought not last and you didn't have the money to get more?: Never true Within the past 12 months, did you worry whether your food would run out before you got money to buy more?: Never true Do you have trouble paying for medicines?: No Do you have trouble getting transportation to medical appointments?: No Do you have trouble paying your heating and electricity bill?: No Do you have trouble taking care of your child, family member or friend?: No Do you have trouble with day-to-day activities such as bathing, preparing meals, shopping, managing finances, etc.?: No Are you currently unemployed and looking for a job?: No Are you interested in more education?: No Please select the resources that you would like help with: None Currently or been in a relationship where the following occur: No concerns reported THRIVE Score: 0 AUDIT C Alcohol Use Questionnaire (AUDIT-C) 1. How often do you have a drink containing alcohol?: Never Total Score: 0 JEANIE-7 AMB Questionnaire JEANIE-7 Date JEANIE - 7 assessed: 04/12/24 Feeling nervous, anxious, or on edge: 1 = Several days Not being able to stop or control worryin = Several days Worrying too much about different things: 1 = Several days Trouble relaxin = Several days Being so restless that it is hard to sit still: 1 = Several days Becoming easily annoyed or irritable: 1 = Several days Feeling afraid as if something awful might happen: 1 = Several days Total JEANIE-7 score (0-4 normal; 5-9 mild; 10-14 moderate; 15-21 severe): 7 Source: Developed by Drs. Hernán Quintero, Caitlin Marroquin, Jethro Thakur and colleagues, with an educational héctor from [employer]. Physical exam (Primary Care) Vital Signs: Last Vital Signs Pulse 75 03/27/25 15:42 Resp 14 03/27/25 15:42 BP 134/56 L 03/27/25 15:42 Pulse Ox 98 03/27/25 15:42 Oxygen Delivery Method Room Air 03/27/25 15:42 Tobacco/Smoking Status: Tobacco use Status Tobacco use date assessed 03/27/25 03/27/25 15:44 Patient Tobacco Use Status Former Tobacco user 03/27/25 15:58 Tobacco use type Cigarette 03/27/25 15:58 e-Cigarette/Vaping Use Never Used 03/27/25 15:58 PHQ-9: PHQ-9 Score PHQ-9: Total score 9 03/27/25 15:44 Depression Screening Interpretation: Positive Depression Screening Follow-up: Existing condition Thrive Assessment: Date of Thrive Assessment Date Thrive assessed 10/14/24 03/27/25 15:41 Currently or been in a relationship where the following occur: No concerns reported Coding Level of Care Code Est Pt Level 4 (57050) Diagnoses Type 1 diabetes mellitus with hypoglycemia and without coma E10.649 Diabetes mellitus complication status: with hypoglycemia Diabetes mellitus complication detail: without coma Disorder of vitamin B12 E53.8 Bowel habit changes R19.4 Recurrent major depressive disorder, in partial remission F33.41 Major depression recurrence: recurrent Malignant neoplasm of lower-inner quadrant of left breast in female, estrogen receptor positive C50.312; Z17.0 Breast location: lower inner quadrant of breast Estrogen receptor status: positive Patient sex: female Laterality: left Additional Codes PHQ-9 - 77575 - PHQ-9 Billing: Yes ([id number]) Assessment & Plan Assessment & Plan (1) Type 1 diabetes: Code(s): E10.9 - Type 1 diabetes mellitus without complications Category: Medical Qualifiers: Diabetes mellitus complication status: with hypoglycemia Diabetes mellitus complication detail: without coma Qualified Code(s): E10.649 - Type 1 diabetes mellitus with hypoglycemia without coma (2) Disorder of vitamin B12: Code(s): E53.8 - Deficiency of other specified B group vitamins Category: Medical (3) Bowel habit changes: Code(s): R19.4 - Change in bowel habit Category: Medical (4) Major depressive disorder in partial remission: Code(s): F32.4 - Major depressive disorder, single episode, in partial remission Category: Medical Qualifiers: Major depression recurrence: recurrent Qualified Code(s): F33.41 - Major depressive disorder, recurrent, in partial remission (5) Breast cancer: Code(s): C50.919 - Malignant neoplasm of unspecified site of unspecified female breast Category: Medical Qualifiers: Breast location: lower inner quadrant of breast Estrogen receptor status: positive Patient sex: female Laterality: left Qualified Code(s): C50.312 - Malignant neoplasm of lower-inner quadrant of left female breast; Z17.0 - Estrogen receptor positive status [ER+] Plan MDD-stable on current medications DM-Last A1C 7.3%. Ordered. Patient will get labs this week Hypothyroid-On levothyroxine 88mcg daily HTN-controlled on current medication History of breast cancer. Did letrozole x 7 years Orders: Orders Comprehensive Met. Panel 03/27/25 E06.3 - Autoimmune thyroiditis, E10.65 - Type 1 diabetes mellitus with hyperglycemia, E53.8 - Deficiency of other specified B group vitamins TSH reflex Free T4 03/27/25 E06.3 - Autoimmune thyroiditis, E10.65 - Type 1 diabetes mellitus with hyperglycemia, E53.8 - Deficiency of other specified B group vitamins H pylori Ag Stool 03/27/25 E10.65 - Type 1 diabetes mellitus with hyperglycemia Hemoglobin A1c 03/27/25 E06.3 - Autoimmune thyroiditis, E10.65 - Type 1 diabetes mellitus with hyperglycemia, E53.8 - Deficiency of other specified B group vitamins Vitamin B12 and Folate 03/27/25 E53.8 - Deficiency of other specified B group vitamins Ova and Parasite 03/27/25 R19.4 - Change in bowel habit CDiff Gene PCR 03/27/25 R19.4 - Change in bowel habit Referrals Gastroenterology Referral R19.4 - Change in bowel habit Medications: New FreeStyle Brianne 2 Plus Sensor (blood-glucose sensor) every 15 days 6 ea 3RF NS E10.65 - Type 1 diabetes mellitus with hyperglycemia Changed From atenolol 25 mg PO DAILY 90 tabs 3RF To atenolol 12.5 mg PO DAILY From naproxen 500 mg PO BID 180 tabs 3RF To naproxen 500 mg PO BID PRN
[2025-03-27 15:42] VITALS: BP 134/56; PULSE 75; RESP 14; O2SAT 98
--- OUTSIDE RECORDS SUMMARY | 2025-03-27 16:43 | XMS_ITS | Clinical Summary ---
Author Organization [facility] Address [address] [place] [address] Phone Care Team Providers Care Boring Machine Operator Horizontal Name Role Phone Vasu Edouard MD Primary Care Provider [phone] Allergies Active Allergy Reactions Criticality Noted Date Comments Penicillins 02/22/2020 Medications atenoloL (TENORMIN) 25 mg tablet Take 1 tablet (25 mg total) by mouth daily. Active cholecalcifero l (VITAMIN D-3) 25 mcg (1,000 unit) tablet [...] tablet TAKE 1 TABLET BY MOUTH DAILY 4 Active levothyroxine (SYNTHROID, LEVOTHROID) 100 mcg tablet Take 1 tablet (100 mcg total) by mouth every morning on an empty stomach. Active losartan (COZAAR) 25 mg tablet Take 1 tablet (25 mg total) by mouth daily. Active naproxen (NAPROSYN) 500 mg tablet Take 1 tablet (500 mg total) by mouth 2 (two) times a day with meals. Active Lantus Solostar U-100 Insulin 100 unit/mL (3 mL) injection pen INJECT SUBCUTANEOUSLY 30 UNITS AT BEDTIME 30 mL 3 5 Active insulin lispro (HumaLOG KwikPen Insulin) 100 unit/mL injection pen INJECT SUBCUTANEOUSLY 8 UNITS 3 TIMES DAILY 15 mL 5 Active Immunizations Name Administration Dates Next Due Pfizer SARS-CoV-2 COVID-19, mRNA, LNP-S, preservative free 12/22/2021,11/15/2020,10/25/2020 Surgical History Surgery Date Site/Laterality Comments OTHER SURGICAL HISTORY PROCEDURE: MD LIG/TRNSXJ FLP TUBE ABDL/VAG APPR UNI/BI LUMBAR [...] 08/28/2005 DX:Un specified hypothyroidism Paroxysmal supraventricular tachycardia ([facility] V24) 08/28/2005 DX:Paroxysmal supraventricul ar tachycardia (HCC) Type I (juvenile type) diabe itffany mellitus without mention of complication, not stated as uncontrolled 08/28/2005 DX:Type I (juvenile type) di abetes mellitus without mention of complication, not stated as uncontrolled Backache, unspecified 08/28/2005 DX:Backach e, unspecified Diabetic retinopathy (CMS/ C V24, CMS/HCC V28) 02/09/2009 DX:Diabetic retinopathy ([facility] ) Heel spur 07/20/2015 DX:Heel spur Malignant neoplasm of left b reast in female, estrogen receptor positive (CMS/HCC V24, CMS/HCC V28) 08/12/2017 DX:Malignant neoplasm of le ft breast in female, estrogen receptor positive (HCC) [...] drink = 0.6 oz pur e alcohol) Comments Unknown Sex and Gender Information Value Date Recorded Sex Assigned at Not on file Legal Sex Female 10:31 AM EST Gender Identity Not on file Sexual Orientation [...] Cervical Cancer Screening: HPV 1976 RSV Immunization Adult Patients (1 - Risk 60-74 years 1-dose series) 2015 Cholesterol Screening (Lipid Panel) 08/23/2022 Colorectal Cancer Screening: Colonoscopy 08/23/2022 Depression Screening 08/23/2022 Falls Risk Assessment 08/23/2022 Hepatitis C Screening 08/23/2022 Medicare Annual Wellness Visit 08/23/2022 Social Influencers of Health Screening 08/23/2022 Hypertension/CHF/CAD Annual BMP Blood Test 08/24/2022 Diabetes: Annual Urine Albumin-Creatinine Ratio (uACR) 08/29/2022 Diabetes: Blood Sugar Control Test (HGBA1C) 08/29/2022 COVID-19 Vaccine ( season) 2024 12/22/2021, 06/25/2021, 11/15/2020, Additional history exists Influenza Vaccine (#1) 2025 2, 07/04/2021, 05/23/2020, Additional history exists Breast Cancer Screening 08/13/2025 08/13/20 23, 08/06/2022, 08/05/2021, Additional history exists Pneumococcal Vaccine: 50+ Years (3 of 3 - PCV20 or PCV21) 02/28/2027 02/28/2022, 07/31/2008 DTaP,Tdap,and Td Vaccines (3 - Td or [...] patient's age to complete this topic Meningococcal B Vaccine Aged Out No l onger eligible based on patient's age to complete [...] architectural distortion or suspicious calcifications are identified. There are stable postlumpectomy changes in the left breast. IMPRESSION: : Dense breast tissue, limiting the sensitivity of mammography. No mammographic evidence of malignancy. BI-RADS 2, benign findings. [...] cancer risk category Moderate (15% - 20%) us Winnie Lovelace MD IMG XR PROCEDURES Final Res ult * BERT DEXA AXIAL SKELETON (05/11/2023 10:09 AM EDT) Anatomical Region Laterality Modality Mammography 05/11/2023 9:07 AM EDT Narrative 05/11/2023 10:09 AM [facility] Diagnostic Imaging Department [address] [place] [id number] Patient: KYLAH OJEDA Ayana /Age/Sex: 1955 - 68 - F Unit#: [id number] Location/Status: SPDIMAM/REG CLI [facility]em[facility] Ordering Physician: DONATO COTTON MD Bert Dexa Axial Skeleton - 05/11/23942 Report Status:Signed HISTORY: The patient is a 68-year-old postmenopausal female with clinical concern for metabolic bone disease. FINDINGS: Dual [...] 112% of that of age matched controls. This yields a T-score of -0.5 and a Z-score of 0.8 and there is therefore no evidence of osteoporosis or osteopenia here. IMPRESSION: 1. There is no evidence of osteoporosis or osteopenia. 2. FRAX analysis yields a 10-year probability of major osteoporotic fracture of 17.1% and a 10-year probability of hip fracture of 1.1%. Code 74541 Dictating Physician: KIAN PERRY MD Electronically Signed by: KIAN PERRY MD Dic Date/Time: 05/11/23 1007 Sign date/Time: 05/11/23 1009 Procedure Note Kian Perry MD - 10/20/2023 [facility] Diagnostic Imaging Department [address] [place] [address] Patient: KYLAH OJEDA Ayana Rutledge./Age/Sex: 1955 - 68 - F Unit#: [id number] [facility] Ordering Physician: DONATO COTTON MD [facility] Dexa Axial Skeleton - 05/11/2368 Report Status:Signed HISTORY: The patient is a [...] density of the femurs bilaterally is 0.943 gm/zx2vgzeg is 94% of that of young normals [...] probability of hip fracture of 1.1%. Code 65645 Dictating Physician: KIAN PERRY MD Electronically Signed by: KIAN PERRY MD Dic Date/Time: 05/11/23 1007 Sign date/Time: 05/11/23 1009 [facility] U Vikas MELISSA IMG BI PROCEDURES Final Resu lt from Last 3 Months or Most Recently Relevant to Health Maintenance Insurance [employer] MEDICARE Care Teams Boring Machine Operator Horizontal Relationship Specialty Start Date End Date Vasu Edouard MD PCP - General Internal Medicine 04/19/15
--- OUTSIDE RECORDS SUMMARY | 2025-03-27 16:43 | XMS_ITS | Clinical Summary ---
Author Organization [facility] Address [address] [place] [address] Care Team Providers Care Manager Gallery Name Role Phone Vasu Edouard MD Primary Care Provider [phone] Allergies Active Allergy Reactions Criticality Noted Date [...] 83 08/27/2023 1:44 PM EST Temperature 36.6 C (97.9 F) 08/27/2023 1:44 PM EST Respiratory Rate - - Oxygen Saturation 100% [...] 2025 2, 07/04/2021, 05/23/2020, Additional history exists Pneumococcal [...] age to complete this topic Care Teams Manager Gallery Relationship Specialty Start Date End Date Vasu Edouard MD PCP - General Internal Medicine 10/17/20
== END 2025-03-27 17:04 | disposition home or self-care (01) ==
LOC: HO.HMCFM 15:32
PROVIDERS: PCP Internal Medicine; Visit Provider Internal Medicine
DX: E10.649 Type 1 diabetes mellitus with hypoglycemia without coma (principal); C50.312 Malignant neoplasm of lower-inner quadrant of left female breast; E53.8 Deficiency of other specified B group vitamins; R19.4 Change in bowel habit; F33.41 Major depressive disorder, recurrent, in partial remission; Z17.0 Estrogen receptor positive status [ER+]

== ENCOUNTER → 2025-03-27 15:31 | Outpatient (BNVA) | payer OTHER, SELFPAY | PROVIDERS: PCP Internal Medicine; Visit Provider Internal Medicine | DX: E10.649 Type 1 diabetes mellitus with hypoglycemia without coma (principal); E53.8 Deficiency of other specified B group vitamins; R19.4 Change in bowel habit; F33.41 Major depressive disorder, recurrent, in partial remission; C50.312 Malignant neoplasm of lower-inner quadrant of left female breast; Z17.0 Estrogen receptor positive status [ER+]; E03.9 Hypothyroidism, unspecified; Z79.4 Long term (current) use of insulin; Z79.899 Other long term (current) drug therapy; Z13.31 Encounter for screening for depression | CPT/HCPCS: 96127 ==

== ENCOUNTER 2025-03-28 11:33 | Outpatient (REF) | payer OTHER, SELFPAY ==
--- OUTSIDE RECORDS SUMMARY | 2025-03-28 12:55 | XMS_ITS | Clinical Summary ---
Author Organization [facility] Address [address] [place] [address] Care Team Providers Care Nuts And Bolts Assembler Name Role Phone Vasu Edouard MD Primary Care Provider [phone] Allergies Active Allergy Reactions Criticality Noted Date [...] age to complete this topic Care Teams Nuts And Bolts Assembler Relationship Specialty Start Date End Date Vasu Edouard MD PCP - General Internal Medicine 10/17/20
--- OUTSIDE RECORDS SUMMARY | 2025-03-28 12:55 | XMS_ITS | Clinical Summary ---
Author Organization [facility] Address [address] [place] [address] Phone Care Team Providers Care Bowling Ball Finisher Name Role Phone Vasu Edouard MD Primary Care Provider [phone] Allergies Active Allergy Reactions Criticality Noted Date [...] Date Site/Laterality Comments OTHER SURGICAL HISTORY PROCEDURE: DC LIG/TRNSXJ FLP TUBE ABDL/VAG APPR UNI/BI LUMBAR [...] 08/28/2005 DX:Un specified hypothyroidism Paroxysmal supraventricular tachycardia ([facility] V24) 08/28/2005 DX:Paroxysmal supraventricul ar tachycardia (HCC) Type I (juvenile type) diabe tiffany mellitus without mention of complication, not stated as uncontrolled 08/28/2005 DX:Type I (juvenile type) di abetes mellitus without mention of complication, not stated as uncontrolled Backache, unspecified 08/28/2005 DX:Backach e, unspecified Diabetic retinopathy (CMS/ C V24, CMS/HCC V28) 02/09/2009 DX:Diabetic retinopathy ([facility] ) Heel spur 07/20/2015 DX:Heel spur Malignant [...] 9:07 AM EDT Narrative 05/11/2023 10:09 AM [facility] Diagnostic Imaging Department [address] [place] [address] Patient: KYLAH OJEDA Ayana /Age/Sex: 1955 - 68 - F Unit#: [id number] Location/Status: SPDIMAM/REG CLI Mnemonic[facility] Ordering Physician: DONATO COTTON MD Bert [...] probability of hip fracture of 1.1%. Code 82235 Dictating Physician: KIAN PERRY MD Electronically Signed by: KIAN PERRY MD Dic Date/Time: 05/11/23 1007 Sign date/Time: 05/11/23 1009 Procedure Note Kian Perry MD - 10/20/2023 [facility] Diagnostic Imaging Department [address] [place] [address] Patient: KYLAH OJEDA Ayana Rutledge./Age/Sex: 1955 - 68 - F Unit#: [id number] [facility] Ordering Physician: DONATO COTTON MD [facility] Dexa Axial Skeleton - 05/11/2346 Report Status:Signed HISTORY: The patient is a [...] density of the femurs bilaterally is 0.943 gm/hx9tlptw is 94% of that of young normals [...] probability of hip fracture of 1.1%. Code 61600 Dictating Physician: KIAN PERRY MD Electronically Signed by: KIAN PERRY MD Dic Date/Time: 05/11/23 1007 Sign date/Time: 05/11/[address] [facility] U Vikas MELISSA IMG BI PROCEDURES Final Resu lt from Last 3 Months or Most Recently Relevant to Health Maintenance Insurance [employer] MEDICARE Care Teams Bowling Ball Finisher Relationship Specialty Start Date End Date Vasu Edouard MD PCP - General Internal Medicine 04/19/15
[2025-03-28 14:13] LABS: Hemoglobin A1C 155.4109 umol/L; Total Hemoglobin (HGBA1C) 2897.7965 umol/L
[2025-03-28 14:26] LABS: Alanine Aminotransferase 15 U/L (0-31); Albumin Level 3.8 g/dL (3.5-5.0); Alkaline Phosphatase 80 U/L (39-117); Anion Gap 12 (12-20); Aspartate Amino Transferase 24 U/L (5-31); Blood Urea Nitrogen 11 mg/dL (9-16); Calcium 9.1 mg/dL (8.4-10.2); Carbon Dioxide 23 mmol/L (22-29); Chloride 107 mmol/L (96-108); Estimated Glomerular Filt Rate > 60; Potassium 4.4 mmol/L (3.3-5.1); Sodium 138 mmol/L (135-145); Total Protein 6.4 g/dL (6.5-8.0)
[2025-03-28 14:58] LABS: Folate 10.6 ng/mL (> or = 4.0); Vitamin B12 > 2000 pg/mL (200-900)
[2025-03-28 15:12] LABS: Free T4 (Free Thyroxine) 1.41 ng/dL (0.71-1.85)
== END 2025-03-28 11:34 | disposition home or self-care (01) ==
LOC: HO.HMGCLDS 11:33
PROVIDERS: PCP Internal Medicine; Visit Provider Internal Medicine
DX: E10.65 Type 1 diabetes mellitus with hyperglycemia (principal); E06.3 Autoimmune thyroiditis; E53.8 Deficiency of other specified B group vitamins
CPT/HCPCS: 36415; 80053; 82607; 82746; 83036; 84439; 84443

== ENCOUNTER 2025-03-29 08:05 | Outpatient (REF) | payer OTHER, SELFPAY ==
--- OUTSIDE RECORDS SUMMARY | 2025-03-29 09:52 | XMS_ITS | Clinical Summary ---
Author Organization [facility] Address [address] [place] [address] Care Team Providers Care Search Consultant Name Role Phone Vasu Edouard MD Primary Care Provider [phone] Allergies Active Allergy Reactions Criticality Noted Date [...] age to complete this topic Care Teams Search Consultant Relationship Specialty Start Date End Date Vasu Edouard MD PCP - General Internal Medicine 10/17/20
--- OUTSIDE RECORDS SUMMARY | 2025-03-29 09:52 | XMS_ITS | Clinical Summary ---
Author Organization [facility] Address [address] [place] [address] Phone Care Team Providers Care Underground Mining Section Foreman Name Role Phone Vasu Edouard MD Primary Care Provider [phone] Allergies Active Allergy Reactions Criticality Noted Date [...] Date Site/Laterality Comments OTHER SURGICAL HISTORY PROCEDURE: OR LIG/TRNSXJ FLP TUBE ABDL/VAG APPR UNI/BI LUMBAR [...] 08/28/2005 DX:Un specified hypothyroidism Paroxysmal supraventricular tachycardia ([facility] V24) 08/28/2005 DX:Paroxysmal supraventricul ar tachycardia (HCC) Type I (juvenile type) diabe tiffany mellitus without mention of complication, not stated as uncontrolled 08/28/2005 DX:Type I (juvenile type) di abetes mellitus without mention of complication, not stated as uncontrolled Backache, unspecified 08/28/2005 DX:Backach e, unspecified Diabetic retinopathy (CMS/ C V24, CMS/HCC V28) 02/09/2009 DX:Diabetic retinopathy ([facility] ) Heel spur 07/20/2015 DX:Heel spur Malignant [...] 9:07 AM EDT Narrative 05/11/2023 10:09 AM [facility] Diagnostic Imaging Department [address] [place] [address] Patient: KYLAH OJEDA Ayana /Age/Sex: 1955 - 68 - F Unit#: [id number] Location/Status: SPDIMAM/REG CLI [facility] Ordering Physician: DONATO COTTON MD Bert Dexa [...] probability of hip fracture of 1.1%. Code 44960 Dictating Physician: KIAN PERRY MD Electronically Signed by: KIAN PERRY MD Dic Date/Time: 05/11/23 1007 Sign date/Time: 05/11/23 1009 Procedure Note Kian Perry MD - 10/20/2023 [facility] Diagnostic Imaging Department [address] [place] [id number] Patient: KYLAH OJEDA yAana Rutledge./Age/Sex: 1955 - 68 - F Unit#: [id number] [facility] Ordering Physician: DONATO COTTON MD [facility] Dexa Axial Skeleton - 05/11/2307 Report Status:Signed HISTORY: The patient is a [...] density of the femurs bilaterally is 0.943 gm/[id number] is 94% of that of young normals [...] probability of hip fracture of 1.1%. Code 77744 Dictating Physician: KIAN PERRY MD Electronically Signed by: KIAN PERRY MD Dic Date/Time: 05/11/23 1007 Sign date/Time: 05/11/23 1009 [facility] U Vikas MELISSA IMG BI PROCEDURES Final Resu lt from Last 3 Months or Most Recently Relevant to Health Maintenance Insurance [employer] MEDICARE Care Teams Underground Mining Section Foreman Relationship Specialty Start Date End Date Vasu Edouard MD PCP - General Internal Medicine 04/19/15
[2025-03-29 15:08] LABS: CDiff Gene PCR NEGATIVE (Negative)
== END 2025-03-29 08:06 | disposition home or self-care (01) ==
LOC: HO.HMGCLNP 08:05
PROVIDERS: PCP Internal Medicine; Visit Provider Internal Medicine
DX: E10.65 Type 1 diabetes mellitus with hyperglycemia (principal); R19.4 Change in bowel habit
CPT/HCPCS: 87177; 87209; 87338; 87493

== ENCOUNTER 2025-09-01 13:19 | Outpatient (REF) | payer MEDICARE, SELFPAY ==
--- NOTE | ~2025-09-01 | MM_ITS ---
EXAMINATION: MM SCREENING DIGITAL BREAST TOMOSYNTHESIS, BILATERAL CLINICAL INFORMATION: Screening. Asymptomatic. COMPARISON: Mammography: Comparison is made with available priors TECHNIQUE: Digital breast mammography with tomosynthesis is performed in both the craniocaudal and mediolateral oblique views along with computer-aided detection (CAD). FINDINGS: The breasts are extremely dense, which lowers the sensitivity of mammography. Left post lumpectomy changes are stable. There are no significant masses, abnormal calcifications, or other abnormalities. MM/MM tomosynthesis screening BI IMPRESSION: No mammographic evidence of malignancy. ASSESSMENT: BI-RADS Category 2: Benign RECOMMENDATION: Routine annual mammography screening. 1 year F/U This examination should not preclude the clinical evaluation of a suspicious palpable abnormality. This patient's information was entered into a reminder system with a target due date for their next mammogram. Electronically signed by: Cynthia Meadows DO 09/05/2025 10:42 AM [facility]
--- OUTSIDE RECORDS SUMMARY | 2025-09-01 15:07 | XMS_ITS | Clinical Summary ---
Author Organization [facility] Address [address] [place] [address] Phone Care Team Providers Care Mental Health Worker Name Role Phone Carolina Stewart MD Primary Care Provider [phone] Allergies Active Allergy Reactions Criticality Noted Date [...] 3 TIMES DAILY 15 mL 5 Active cetirizine (ZyrTEC) 10 mg tablet Take 1 tablet (10 mg total) by mouth. Active baclofen (LIORESAL) 5 mg tablet 5 Active atorvastatin (LIPITOR) 20 mg tablet Take 1 tablet (20 mg total) by mouth. 4 Active aspirin 81 mg chewable tablet Chew 1 tablet (81 mg total). Active Active Problems Problem Noted Date Diagnosed Date Essential hypertension 10/30/2020 Heel spur 07/20/2015 Diabetes mellitus type 1 10/23/2011 Microalbuminuria 10/23/2011 Sepsis due to urinary tract infection 05/08/2011 Overview (06/21/2025): Escherichia coli bacteremia, 04/2011 O update Degenerative arthritis of lumbar spine 0 Radiculitis, lumbosacral 06/26/2010 Diabetic retinopathy 02/09/2009 COPD (chronic obstructive pulmonary disease) Backache 08/28/2005 Overview (06/21/2025): [facility] update Hypothyroidism 08/28/2005 Paroxysmal supraventricular tachycardia 08/28/20 05 Immunizations Immunization Administration Dates Next Due Pfizer SARS-CoV-2 COVID-19, mRNA, LNP-S, preservative free 12/22/2021,11/15/2020,10/25/2020 Surgical History Surgery Date Site/Laterality Comments OTHER SURGICAL HISTORY PROCEDURE: RI LIG/TRNSXJ FLP TUBE ABDL/VAG APPR UNI/BI LUMBAR LAMINECTOMY about 2004 PROCEDURE: HISTORICAL LUMB LAMINECTOMY; COMMENT: Dr. Faustin CATARACT EXTRACTION PROCEDURE: HISTORICAL CATARACT REMOVAL; COMMENT: bilateral COLONOSCOPY 01/29/10 PROCEDURE: HISTORICAL COLONOSCOPY; COMMENT: normal. Repeat in ten years EYE SURGERY PROCEDURE: HISTORICAL EYE SURGERY; COMMENT: bilateral vitrectomy MULTIPLE TOOTH EXTRACTIONS PROCEDURE: HISTORICAL DENTAL EXTRACTION BREAST BIOPSY 2017 Left PROCEDURE: BX BREAST; PERC NEEDLE CORE W/IMAG GUID BREAST LUMPECTOMY 08/2017 Left PROCEDURE: HISTORICAL BREAST LUMPECTOMY Medical History Medical History Date Comments Unspecified hypothyroidism 08/28/2005 DX:Un specified hypothyroidism Paroxysmal supraventricular tachycardia ([facility] V24) 08/28/2005 DX:Paroxysmal supraventricul ar tachycardia (HCC) Type I (juvenile type) diabe tiffany mellitus without mention of complication, not stated as uncontrolled 08/28/2005 DX:Type I (juvenile type) di abetes mellitus without mention of complication, not stated as uncontrolled Backache, unspecified 08/28/2005 DX:Backach e, unspecified Diabetic retinopathy ([facility]/ C V24, [facility] V28) 02/09/2009 DX:Diabetic retinopathy ([facility] ) Heel spur 07/20/2015 DX:Heel spur Malignant neoplasm of left b reast in female, estrogen receptor positive ([facility] V24, [facility] V28) 08/12/2017 DX:Malignant neoplasm of le ft [...] Used Date Smoking Tobacco: Former Cigarettes 1 Q uit: 09/14/1984 Smokeless Tobacco: Never Alcohol Use Standard Drinks/Week Comments Not Currently 0 (1 standard drink = 0.6 oz pur e alcohol) Comments Unknown Sex and Gender Information Value Date Recorded Sex Assigned at Not on file Legal Sex Female 10:31 AM EST Gender Identity Not on file Sexual Orientation Not on file Last Filed Vital Signs [...] Health Maintenance Due Date Last Done Comments Colorectal Cancer Screening: Colonoscopy 1955 Diabetes: Annual GFR (Glomerular Filtration Rate) 1955 Diabetes: Annual Foot Exam 1965 Diabetes: Annual Retina Eye Exam 1965 Cervical Cancer Screening: HPV 1976 RSV Immunization Adult Patients (1 - Risk 50-74 years 1-dose series) 2005 Cholesterol Screening (Lipid Panel) 08/23/2022 Falls Risk Assessment 08/23/2022 Hepatitis C Screening 08/23/2022 Medicare Annual Wellness Visit 08/23/2022 Social Influencers of Health Screening 08/23/2022 Hypertension/CHF/CAD Annual BMP Blood Test 08/24/2022 Diabetes: Annual Urine Albumin-Creatinine Ratio (uACR) 08/29/2022 Diabetes: Blood Sugar Control Test (HGBA1C) 08/29/2022 Depression Screening 09/14/2024 COVID-19 Vaccine ( season) 2025 12/22/2021, 06/25/2021, 11/15/2020, Additional history exists Influenza Vaccine (#1) 2025 , 07/04/2021, 05/23/2020, Additional history exists Breast Cancer [...] AM EDT Narrative 05/11/2023 10:09 AM EDT [facility] Diagnostic Imaging Department [address] [place] [address] Patient: NEILPIERCEKYLAH /Age/Sex: 1955 - 68 - F Unit#: [id number] Location/Status: [facility] CLI [facility]emonic[facility] Ordering Physician: JONH BEAN MD Bert Dexa Axial Skeleton - 05/11/2327 Report Status:Signed HISTORY: The patient is a [...] probability of hip fracture of 1.1%. Code 57529 Dictating Physician: KIAN PERRY MD Electronically Signed by: KIAN PERRY MD Dic Date/Time: 05/11/23 1007 Sign date/Time: 05/11/23 1009 Procedure Note Kian Perry MD - 10/20/2023 [facility] Diagnostic Imaging Department [address] [place] [address] Patient: YKLAH OJEDA Ayana /Age/Sex: 1955 - 68 - F Unit#: [id number] Location/[facility]/Ordering Site: [facility] Ordering Physician: JONH BEAN MD Bert Dexa Axial Skeleton - 05/11/23 - 0943 Report Status:Signed HISTORY: The patient is a [...] density of the femurs bilaterally is 0.943 gm/[id number] is 94% of that of young normals [...] probability of hip fracture of 1.1%. Code 19875 Dictating Physician: KIAN PERRY MD Electronically Signed by: KIAN PERRY MD Dic Date/Time: 05/11/23 1007 Sign date/Time: 05/11/23 1009 Jonh Bean MD IM BI PROCEDURES Final Resu lt from Last 3 Months or Most Recently Relevant to Health Maintenance Insurance [employer] MEDICARE Care Teams Mental Health Worker Relationship Specialty Start Date End Date Carolina Stewart MD [address] [place] [address] PCP - General Internal Medicine 03/30/25
--- OUTSIDE RECORDS SUMMARY | 2025-09-01 15:07 | XMS_ITS | Clinical Summary ---
Author Organization [facility] Prior to 02/11/[address] [place] [address] Care Team Providers Care Take Out Waitress Name Role Phone Vasu Edouard MD Primary Care Provider [phone] Allergies Active Allergy Reactions Criticality Noted Date [...] (DEXA Scan) 2020 COVID-19 Vaccine ( season) 2025 12/22/2021, 06/25/2021, [...] age to complete this topic Care Teams Take Out Waitress Relationship Specialty Start Date End Date Vasu Edouard MD PCP - General Internal Medicine 10/17/20
== END 2025-09-01 13:20 | disposition home or self-care (01) ==
LOC: HO.MAMMO 13:19
PROVIDERS: PCP Internal Medicine; Visit Provider Internal Medicine
DX: Z12.31 Encounter for screening mammogram for malignant neoplasm of breast (principal)
CPT/HCPCS: 77063; 77067

== ENCOUNTER → 2025-09-01 13:30 | Outpatient (BNV) | payer MEDICARE, SELFPAY | PROVIDERS: PCP Internal Medicine; Visit Provider Internal Medicine | DX: Z12.31 Encounter for screening mammogram for malignant neoplasm of breast (principal) | CPT/HCPCS: 77063; 77067 ==